=== PATIENT | male | born 1965 | race Caucasian/White ===

== ENCOUNTER → 2020-01-27 13:31 | Outpatient (CLI) | payer BC, SELFPAY ==
[2020-01-27 13:53] LABS: Blood Urea Nitrogen 24 mg/dl (9-20); Estimated Glomerular Filt Rate 70 ml/min (>60); GFR (African American) 84 ML/MIN (>60)
--- NOTE | 2020-01-27 14:07 | CT_ITS ---
Procedure: CT ANGIO ABDOMEN CLINICAL HISTORY: ESSENTIAL HYPERTENSION Hypertension workup COMPARISON: No exams were available for comparison TECHNIQUE: IV Contrast: 100ml Optiray 350 Axial images obtained with sagittal and coronal reformats. All CT scans at the facility use one or more dose reduction, viz: automated exposure control, ma/kV adjustment per patient size (including targeted exams where dose is matched to indication, i.e. head), or iterative reconstruction technique. FINDINGS: There is a single renal artery to each kidney. There is no evidence of renal artery stenosis. The abdominal aorta is unremarkable without evidence of aneurysm. The celiac and superior mesenteric artery are unremarkable and the AWAIS is patent. There is some mild calcific plaque at the lower abdominal aorta and proximal common iliacs without evidence of significant stenosis. The kidneys have an unremarkable appearance. No renal or ureteral calculi and no hydronephrosis or renal mass. Unremarkable adrenal glands. The liver, gallbladder, spleen, and pancreas have an unremarkable appearance. There is a small perigastric lymph node along the lesser curvature of the stomach at 14 mm. There is a small hiatal hernia. There is colonic diverticulosis. Small cavitary lesions are present in the inferior aspect of the right lower lobe anteriorly as well as the right lower lobe posteriorly measuring approximately 1 cm each. IMPRESSION: 1. No evidence of renal artery stenosis. 2. No renal or adrenal mass. 3. Nonspecific small cavitary lesions in the right lower lobe. Dedicated chest CT may provide further evaluation 4. There is a nodular density along the lesser curvature of the stomach. This is contiguous with the pancreas. This could represent a small lymph node or exophytic nodule from the pancreas or exophytic pancreatic tissue. Similar type density is noted along the posterior aspect of the body of the pancreas. Suggest 3 month follow-up with pancreatic protocol to confirm stability. Dictated by: Uvaldo Larose MD 01/28/2020 11:23 Electronically signed by Uvaldo Larose MD in [place] 01/28/2020 11:23
== END ==
PROVIDERS: Visit Provider Family Medicine
DX: I15.0 Renovascular hypertension (principal)
CPT/HCPCS: 36415; 74175; 82565; 84520; Q9967

== ENCOUNTER → 2021-01-05 15:24 | Outpatient (CLI) | payer BC, SELFPAY ==
--- NOTE | 2021-01-05 15:27 | CT_ITS ---
PROCEDURE: CT LUNG SCREENING CLINICAL INDICATION: HX OF NICOTINE DEPENDENCE Current smoker 30 pack year smoking history COMPARISON: No exams were available for comparison TECHNIQUE: The exam was performed on a GE Light Speed [address] scanner using 2.90 mGy CTDI. A low dose helical CT CHEST was performed on a multi-detector scanner. All CT scans at the facility use one or more dose reduction, viz: automated exposure control, ma/kV adjustment per patient size (including targeted exams where dose is matched to indication, i.e. head), or iterative reconstruction technique. The LDCT was performed in a facility that meets the criteria for the screening program. Data regarding this exam was submitted to ACR which is an approved registry. The order for this exam indicates that it came as a result of a lung cancer screening counseling shard decision-making visit that included all the elements required of such a visit including smoking cessation. The radiologist interpreting this exam meets the [facility] criteria for the LDCT lung cancer screening program. The exam is reported using the Lung-RADS classification scale and reported to the ACR registry. NOTE: This study was performed for the specific purposes of lung cancer screening and is not an alternative to diagnostic chest CT. RADIATION DOSE: CTDI vol(CT dose Index-volume) = 2.90mG DLP (Dose Length Product) = 116.20 mGcm FINDINGS: COPD with scattered areas of scarring and centrilobular emphysema. There are scattered parenchymal opacities somewhat irregular in nature some with central areas of lucency measuring 13 x 10 mm in the right lower lobe anteriorly and an additional 10 mm area in the right lower lobe posteriorly. In the right lower lobe posteriorly there is a 7 mm nodular opacity. Parenchymal opacity is noted in the extreme right lung base posteriorly and may be due to postinflammatory fibrotic changes. There is mild diffuse bronchial thickening. There is an irregular opacity in the left lower lobe at 7 mm. A noncalcified nodules present in the left lower lobe at 5 mm. An additional parenchymal opacity is present in the left lower lobe posteriorly consistent with an area of scarring. Five small irregular parenchymal opacities are present in the left upper lobe. In the right upper lobe there is a 3 mm nodule anteriorly as well as a 3 mm nodule laterally OTHER FINDINGS: There are few small mediastinal lymph nodes. Coronary artery calcifications are present. There is minimal thickening of the pericardium anteriorly. Small hiatal hernia noted. IMPRESSION: Lung-RADS Category 4A Suspicious Follow-up: There are numerous irregular parenchymal opacities in both lungs. These may be inflammatory/infectious in nature. Sequela from septic emboli would be a consideration. One cannot exclude the possibility of metastatic disease. Recommend [address] with contrast. Other findings include COPD with bronchial thickening and centrilobular emphysema Dictated by: Uvaldo Larose MD 01/14/2021 12:54 Uvaldo Larose MD in [place] 01/14/2021 12:54
== END ==
PROVIDERS: PCP Family Medicine; Visit Provider Family Medicine
DX: Z87.891 Personal history of nicotine dependence (principal); Z12.2 Encounter for screening for malignant neoplasm of respiratory organs
CPT/HCPCS: 71271

== ENCOUNTER → 2021-03-08 09:24 | Outpatient (CLI) | payer BC, SELFPAY ==
--- NOTE | 2021-03-08 09:27 | CA_ITS ---
APPROVED REPORT EXAM: Comprehensive 2D, Doppler, and color-flow Echocardiogram Yam Curer: Donna Ramirez RVT Ht: 5 ft 11 in Wt: 134lbs BSA: 1.78 BP: 168/97 mmHg Indications: SOA,COPD,HTN,DM,GERD,EX SMOKER TDS 2D Dimensions LVOT 2.13 cm (M/F) 1.5-2.5 LA Volume 30.90 mL LA Volume Index 17.35 mL/m2 (M/F) 16-34 M-Mode Dimensions RVDd 2.86 cm (0.9-2.6) LA Diam 3.09 cm (1.9-4.0) LVDd 3.25 cm (3.5-5.7) Ao Diam 2.55 cm (2.0-3.7) LVDs 2.18 cm (3.5-5.7) IVSd 0.43 cm (0.6-1.1) PWd 1.25 cm (0.6-1.1) EF (Teich) 62.80% FS 32.90% EDV (Teich) 42.50 mL TAPSE 2.17 (<1.7) ESV (Teich) 15.80 mL LV Diastology E Decel Time 193.00 (160-240 msec) E/A Ratio 0.9 MED E' 9.70 (< 7 cm/sec) E'/MED E' Ratio 10.86 (>14) LAT E' 12.40 (<10 cm/sec) E/LAT E' Ratio 8.49 (>14) Aortic Valve AO Peak GR. 7.30 mmHg Mitral Valve MV E Max Mikie. 105.00 (40-130 cm/s) MV A Velocity 119.00 (40-130 cm/s) E/A Ratio 0.88 MV Decel. Time 193.00 (160-240 ms) MV PHT 57.00 ms Pulmonary Valve PV Peak Velocity 81.00 (50-150 cm/s) Tricuspid Valve TR P. Velocity 281.00 cm/s RAP Estimate 10.00 mmHg RVSP 41.50 mmHg Left Ventricle Left atrium is mildly enlarged, left ventricle is normal size, mild concentric left ventricular hypertrophy, visually estimated ejection fraction 55% with no regional wall motion abnormality, grade 1 diastolic dysfunction seen without tissue Doppler evidence of raise left atrial pressure. Right Ventricle Right atrium and right ventricle mildly enlarged with normal contractility. Aortic Valve Aortic valve is minimally thickened and calcified without Doppler evidence of aortic stenosis or aortic insufficiency. Mitral Valve Mitral valve grossly normal, there is trace mitral regurgitation. Tricuspid Valve Tricuspid grossly normal, there is trace tricuspid regurgitation, tricuspid regurgitation jet velocity is inadequate for calculation of the right ventricular systolic pressure. Pulmonic Valve Pulmonic valve is poorly visualized. Great Vessels Aortic root is normal size. Inferior vena cava is normal size with normal inspiratory collapse. Pericardium No significant pericardial effusion noted. Conclusion 1. Mild biatrial enlargement, normal left ventricular size, mild concentric left ventricular hypertrophy, visually estimated ejection fraction 55% with no regional wall motion abnormality, grade 1 diastolic dysfunction seen without tissue Doppler evidence of raise left atrial pressure. 2. Mildly enlarged right ventricle with normal contractility. 3. Trace mitral and tricuspid regurgitation. 4. No significant pericardial effusion noted. Inferior vena cava is normal size with normal inspiratory collapse. Electronically signed by : Brandyn Dillard, 03/08/2021 18:05:08
== END ==
PROVIDERS: PCP Family Medicine; Visit Provider Internal Medicine Pulmonary Disease
DX: R06.01 Orthopnea (principal)
CPT/HCPCS: 93306

== ENCOUNTER 2021-08-05 13:31 | Emergency (ER) | payer BC, SELFPAY ==
--- NOTE | 2021-08-05 13:55 | XR_ITS ---
PROCEDURE INFORMATION: Exam: XR Chest Exam date and time: 08/05/2021 1:55 PM Age: 56 years old Clinical indication: Other: Weakness; Additional info: Weak TECHNIQUE: Imaging protocol: XR of the chest. Views: 2 views. COMPARISON: CT LUNG SCREENING 01/05/2021 3:33 PM FINDINGS: Lungs: Lungs are mildly hyperinflated. Bronchi mild bronchial wall thickening. No airspace infiltrates. Small nodular opacities are present in both lung bases, measuring up to 11 mm. Pleural spaces: No pleural effusion. No pneumothorax. Heart/Mediastinum: Unremarkable. No cardiomegaly. Bones/joints: Unremarkable. IMPRESSION: 1. Mild hyperinflation with bronchial wall thickening may be seen in the setting of COPD or infectious airways disease. 2. Nonspecific nodular opacities in both lung bases measuring up to [address] follow-up is recommended.
[2021-08-05 14:30] VITALS: BP 142/78; PULSE 117; RESP 24; TEMP 36.9; O2SAT 90; BMI 27.8
[2021-08-05 15:27] LABS: ABG Base Excess 17.2 mmol/L (-2.4-2.3); ABG HCO3 41.9 mmhg (22.0-26.0); ABG Oxygen Saturation 94 % (90-100); ABG PH 7.41 mmol/L (7.35-7.45); ABG PO2 70.5 mmhg (80-100)
[2021-08-05 15:29] LABS: Basophils # 0.1 K/mm3 (0-0.2); Basophils % 0.7 % (0.1-2.0); Eosinophils # 0.2 K/mm3 (0.0-0.4); Eosinophils % 1.6 % (0.1-12.0); Hematocrit 44.2 % (42.0-52.0); Hemoglobin 14.6 g/dL (14.1-18.0); Lymphocytes # 1.6 K/mm3 (0.7-4.5); Lymphocytes % 10.5 % (10-50); Mean Corpuscular Hemoglobin 29.8 pg (27.0-31.2); Mean Corpuscular Volume 90.4 fl (80-94); Mean Platelet Volume 8.9 fl (7.4-10.4); Monocytes # 0.5 K/mm3 (0.1-1.0); Monocytes % 3.4 % (1.7-9.3); Neutrophils # 12.4 K/mm3 (1.8-7.8); Neutrophils % 83.8 % (37.0-80.0); Platelet Count 267 K/mm3 (142-424); Red Cell Distribution Width 13.4 % (11.5-17.5); White Blood Count 14.8 K/mm3 (4.8-10.8)
[2021-08-05 15:31] LABS: Alanine Aminotransferase 36 U/L (12-78); Albumin Level 3.5 g/dl (3.5-5.0); Alkaline Phosphatase 126 U/L (38-126); Aspartate Amino Transferase 30 U/L (17-59); Bilirubin,Total 0.4 mg/dl (0.2-1.3); Blood Urea Nitrogen 19 mg/dl (9-20); Calcium 9.2 mg/dl (8.4-10.2); Chloride 85 mmol/L (98-107); Creatinine Clearance Estimated 132 mL/min (50-200); Estimated Glomerular Filt Rate 100 ml/min (>60); GFR (African American) 121 ML/MIN (>60); Globulin 3.5 g/dL (1.3-3.2); Glucose 162 mg/dl (74-100); Potassium 3.5 mmoL/L (3.5-5.1); Sodium 136 mmol/L (136-145)
[2021-08-05 15:36] LABS: Allen's Test Acceptable; Oxygen 2.5LPM NC %; Source Left Radial
[2021-08-05 15:38] LABS: ABG PCO2 68.1 mmhg (35.0-45.0)
--- NOTE | 2021-08-05 15:38 | HMH.EDUTC ---
[facility] [place] Disposition Clinical Impression: COPD exacerbation, Hypercapnemia Disposition: Still a Patient Condition on Discharge: Fair Referrals: Antolin Boo MD [Staff Physician] - Time of Disposition: 15:47 Medical Decision Making - Medical Records Medical records reviewed: No: I reviewed the patient's medical records. - [place] Inquiry Pt receiving controlled substance: No Vital Signs: 08/05/21 14:30 Temperature 98.5 F Temperature Source Oral Pulse Rate [Right Brachial] 117 H Respiratory Rate 24 Blood Pressure [Right Arm] 142/78 H Blood Pressure Mean [Right Arm] 99 Blood Pressure Source [Right Arm] Automatic Cuff Blood Pressure Position [Right Arm] Sitting 02 Sat by Pulse Oximetry 90 L Oxygen Delivery Method Nasal Cannula Oxygen Flow Rate (LPM) 2.5 - Lab Data Lab Results 08/05/21 14:44: Specimen Source Left radial, O2 % 2.5lpm nc, Uvaldo Test Acceptable, Vent Rate , Tidal Volume , PEEP 08/05/21 15:00: WBC 14.8 H, RBC 4.90, Hgb 14.6, Hct 44.2, MCV 90.4, MCH 29.8, MCHC 33.0, RDW 13.4, Plt Count 267, MPV 8.9, Neut % (Auto) 83.8 H, Lymph % (Auto) 10.5, [place] % (Auto) 3.4, Eos % (Auto) 1.6, Baso % (Auto) 0.7, Neut # (Auto) 12.4 H, Lymph # (Auto) 1.6, [place] # (Auto) 0.5, Eos # (Auto) 0.2, Baso # (Auto) 0.1 Result diagrams: 08/05/21 15:00 Orders (Tests/Meds): ORDERS Category Date Time Status Chest XR 2 view (NOT portable) [XR chest 2V] Stat Exams 08/05/21 13:55 Taken CMP [Comprehensive Metabolic Panel] Stat Lab 08/05/21 15:00 Received Arterial Blood Gas Stat RT 08/05/21 14:44 Results Medical Decision Narrative: He was sent to the er due to his disorientation and his abg results [facility] [place] HPI - General Stated complaint: weakness, disorientated, cough, congestion Time Seen by Provider: 08/05/21 15:00 Mode of Arrival: Ambulatory Source of Information: Patient, Spouse Limitations: No Limitations Description of Symptoms (Recalled from Triage Doc. by RN): PATIENT C/O WEAKNESS, SOA, AND DISORIENTATION SINCE LAST WEEK HEENT Symptoms (Recalled from RN notes): No Resp Symptoms (Recalled from RN notes): Yes Skin Symptoms (Recalled from RN notes): No MS Symptoms (Recalled from RN notes): No Functional Status (Recalled from RN notes): WNL - History of Present Illness Provider Complaint: He is here with chief complaints of shortness of breath and disorientation. His states that he has been like this for the past 5 days, but he is getting worse. He has a history of copd. He is on o2 via nc around the clock at 2.5 lpm chronically. His states that he had a negative covid-19 test yesterday. He has not been vaccinated against covid-19. - Related Data Home Medications Medication Instructions Recorded Confirmed amlodipine 10 mg tablet 10 mg PO DAILY 01/20/21 03/16/21 esomeprazole magnesium 40 mg 40 mg PO DAILY 01/20/21 03/16/21 capsule,delayed release hydrochlorothiazide 25 mg tablet 25 mg PO DAILY 01/20/21 03/16/21 lisinopril 40 mg tablet 40 mg PO DAILY 01/20/21 03/16/21 metformin 1,000 mg tablet 1,000 mg PO DAILY 01/20/21 03/16/21 nebivolol 20 mg tablet 20 mg PO DAILY 01/20/21 03/16/21 pravastatin 10 mg tablet 10 mg PO DAILY 01/20/21 03/16/21 tiotropium 2.5 mcg-olodaterol 2.5 2 puff INHALATION DAILY 01/20/21 03/16/21 mcg/actuation mist for inhalation Allergies Allergy/AdvReac Type Severity Reaction Status Date / Time Penicillins Allergy Intermediate Swelling Verified 03/16/21 09:58 of Lip/Tongue/Throat - Worker's Comp Is this a Worker's Comp case?: No [facility] History - Hepatitis A Screen Drug use history?: No High risk sexual behaviors?: No History of sexually transmitted infection?: No Currently employed?: No Childcare worker?: No Do you have indoor plumbing?: Yes Do you have electricity?: Yes Attestation statement:: This patient has been screened for Hepatitis A risk factors. I have reviewed the patient's past medical history: Yes Medical History
--- NOTE | 2021-08-05 15:40 | PC.NURSE ---
PATIENT SENT TO ER PER Bal REED APRN FOR FURTHER EVALUATION. REPORT AND ABG RESULTS GIVEN TO Michelle KING RN
[2021-08-05 15:43] LABS: Anion Gap 7.5 mEq/L (5-15); Carbon Dioxide 47 mmol/L (22.0-30.0)
[2021-08-05 15:46] VITALS: BP 145/78; PULSE 116; RESP 18; TEMP 37.1; O2SAT 89; BMI 27.8
[2021-08-05 16:15] VITALS: PULSE 111; PULSE 112; O2SAT 91
[2021-08-05 16:31] LABS: Microscopic, Urine URINE MICROSCOPIC (MICROSCOPIC)
[2021-08-05 16:42] LABS: Appearance,Urine CLEAR (Clear); Bilirubin,Urine Negative (Negative); Blood, Urine Negative (Negative); Color,Urine YELLOW (Yellow); Glucose,Urine (UA) Negative (Negative); Ketones,Urine Negative (Negative); Leukocyte Esterase,Urine Negative (Negative); Nitrate,Urine Negative (Negative); PH,Urine 7.5 (5.0-8.5); Protein,Urine TRACE (Negative)
[2021-08-05 16:51] LABS: Benzodiazepines Screen,Urine Negative ng/ml (<200)
[2021-08-05 16:52] LABS: Amphetamine/Metha Screen,Urine Negative ng/ml (<1000); Barbiturates Screen,Urine Negative ng/ml (<200)
[2021-08-05 16:53] LABS: Methadone Screen,Urine Negative ng/ml (<300)
[2021-08-05 16:54] LABS: Cannabinoid Screen,Urine Negative ng/ml (<50); Cocaine Screen,Urine Negative ng/ml (<300)
[2021-08-05 16:55] LABS: Opiate Screen,Urine Negative ng/ml (<300)
[2021-08-05 16:56] LABS: Phencyclidine Screen,Urine Negative ng/ml (<25)
[2021-08-05 17:13] LABS: Bacteria,Urine Trace /lpf; Squamous Epithelial Cell,Urine Occasional #/hpf (0-5)
--- NOTE | 2021-08-05 19:07 | HMH.EDGENADL ---
ED Disposition Clinical Impression: COPD exacerbation, Hypercapnemia Pneumonia Qualifiers: Pneumonia type: due to unspecified organism Laterality: unspecified laterality Lung location: unspecified part of lung Qualified Code(s): J18.9 - Pneumonia, unspecified organism Disposition: Home, Self-Care Condition on Discharge: Fair Additional Instructions: You have been prescribed 2 antibiotics. Please take as prescribed. Continue to monitor your condition very closely at home. If any of the concerning symptoms we discussed arise, please return promptly to the nearest emergency department for reassessment. If your condition does not improve within 48 hours on the regimen that you have been prescribed, please also return for reassessment. Please make an appointment with your primary care Dr. Boo on Sunday for reassessment. Please note that your chest X ray showed abnormal findings and you will require a follow up CT imaging for these findings. Prescriptions: Doxycycline Hyclate [Doxycycline 50mg Tablet] 100 mg PO BID 10 Days #40 tab Transmission Status: Received by [email or web address] # Cefdinir [Omnicef 300mg Capsule] 300 mg PO BID #20 cap Transmission Status: Received by [email or web address] # Albuterol Sulfate [Proventil-HFA 90mcg/puff Inh] 4 puffs IH QIDP PRN #1 each PRN Reason: Shortness Of Breath Transmission Status: Received by [email or web address] # Referrals: Antolin Boo MD [Staff Physician] - - Critical Care Critical Care Time: No Attestation: On 08/05/21, the high probability of a clinically significant, sudden or life threatening deterioration of the following system(s) required my full and direct attention, intervention and personal management. The time I documented below is in addition to time spent performing reported procedures but includes the following listed in this critical care notation. Medical Decision Making - Medical Records Medical records reviewed: Yes: I reviewed the patient's medical records. - [place] Inquiry Pt receiving controlled substance: No Vital Signs: 08/05/21 14:30 08/05/21 15:46 08/05/21 16:15 Temperature 98.5 F 98.7 F Temperature Source Oral Oral Pulse Rate 112 H Pulse Rate [Right Brachial] 117 H 116 H Respiratory Rate 24 18 Blood Pressure [Right Arm] 142/78 H 145/78 H Blood Pressure Mean [Right Arm] 99 100 Blood Pressure Source [Right Arm] Automatic Cuff Blood Pressure Position [Right Arm] Sitting 02 Sat by Pulse Oximetry 90 L 89 L 91 L Oxygen Delivery Method Nasal Cannula Nasal Cannula Nasal Cannula Oxygen Flow Rate (LPM) 2.5 2.5 2.5 - Lab Data Lab results reviewed: Yes: I reviewed the patient's lab results. Lab Results 08/05/21 14:44: Specimen Source Left radial, O2 % 2.5lpm nc, ABG pH 7.41, ABG pCO2 68.1 H, ABG pO2 70.5 L, ABG HCO3 41.9 H, ABG Total CO2 44.0 H, ABG O2 Saturation 94, ABG Base Excess 17.2 H, Uvaldo Test Acceptable, Vent Rate , Tidal Volume , PEEP 08/05/21 15:00: WBC 14.8 H, RBC 4.90, Hgb 14.6, Hct 44.2, MCV 90.4, MCH 29.8, MCHC 33.0, RDW 13.4, Plt Count 267, MPV 8.9, Neut % (Auto) 83.8 H, Lymph % (Auto) 10.5, [place] % (Auto) 3.4, Eos % (Auto) 1.6, Baso % (Auto) 0.7, Neut # (Auto) 12.4 H, Lymph # (Auto) 1.6, [place] # (Auto) 0.5, Eos # (Auto) 0.2, Baso # (Auto) 0.1 08/05/21 15:00: Sodium 136, Potassium 3.5, Chloride 85 L, Carbon Dioxide 47 H*, Anion Gap 7.5, BUN 19, Creatinine 0.80, Estimated Creat Clear 132, Estimated GFR 100, Est GFR ( Amer) 121, Glucose 162 H, Calcium 9.2, Total Bilirubin 0.4, AST 30, ALT 36, Alkaline Phosphatase 126, Total Protein 7.0, Albumin 3.5, Globulin 3.5 H, Albumin/Globulin Ratio 1.0 L 08/05/21 16:28: Urine Color Yellow, Urine Appearance Clear, Urine pH 7.5, Ur Specific [place] 1.020, Urine Protein Trace, Urine Glucose (UA) Negative, Urine Ketones Negative, Urine Blood Negative, Urine Nitrate Negative, Urine Bilirubin Negative, Urine Urobilinogen 2.0, Ur Leukocyte Esterase Negative, Urine R
[2021-08-05 20:34] VITALS: BP 156/84; PULSE 102; RESP 16; TEMP 37.1; O2SAT 93
== END 2021-08-05 20:39 | disposition home or self-care (01) ==
LOC: UTC 14:02 → ER 15:41
PROVIDERS: Nurse Practitioner Family; Emergency Provider Emergency Medicine
DX: J18.9 Pneumonia, unspecified organism (principal); J44.1 Chronic obstructive pulmonary disease with (acute) exacerbation; E11.65 Type 2 diabetes mellitus with hyperglycemia; I10 Essential (primary) hypertension; K21.9 Gastro-esophageal reflux disease without esophagitis
CPT/HCPCS: 71046; 80053; 80305; 81001; 82803; 85025; 99283

== ENCOUNTER → 2021-08-11 08:31 | Outpatient (CLI) | payer BC, SELFPAY ==
[2021-08-11 09:48] LABS: Blood Urea Nitrogen 17 mg/dl (9-20); Estimated Glomerular Filt Rate 87 ml/min (>60); GFR (African American) 106 ML/MIN (>60)
== END ==
PROVIDERS: Visit Provider Family Medicine
DX: J18.9 Pneumonia, unspecified organism (principal); R91.8 Other nonspecific abnormal finding of lung field; R91.1 Solitary pulmonary nodule; Z91.89 Other specified personal risk factors, not elsewhere classified
CPT/HCPCS: 36415; 82565; 84520

== ENCOUNTER → 2021-08-17 12:47 | Outpatient (CLI) | payer BC, SELFPAY ==
--- NOTE | 2021-08-17 12:52 | CT_ITS ---
PROCEDURE INFORMATION: Exam: CT Chest With Contrast; Diagnostic Exam date and time: 08/17/2021 12:52 PM Age: 56 years old Clinical indication: Other: Pulmonary nodule; Additional info: Abn CT , pulmonary nodule, TECHNIQUE: Imaging protocol: Diagnostic computed tomography of the chest with contrast. Radiation optimization: All CT scans at this facility use at least one of these dose optimization techniques: automated exposure control; mA and/or kV adjustment per patient size (includes targeted exams where dose is matched to clinical indication); or iterative reconstruction. Contrast material: ISOVUE; Contrast volume: 70 ml; Contrast route: IV; COMPARISON: CR XR CHEST 2V 08/05/2021 2:10 PM FINDINGS: Thyroid: There is a 1.2 cm left thyroid nodule. No follow-up is recommended. Lungs: Scattered calcified granulomas are seen in the lungs bilaterally. Moderate centrilobular emphysema. There is some tree-in-bud nodularity in the right lower lobe as well as the lingula and left lower lobe. No focal airspace consolidation. The largest area of spiculation seen in the right lower lobe has resolved and was likely infectious or inflammatory. Pleural spaces: Unremarkable. No pneumothorax. No pleural effusion. Heart: Coronary artery calcification. Aorta: Unremarkable. No aortic aneurysm. Lymph nodes: Calcified right hilar lymph nodes. Liver: Calcified hepatic granulomas. Spleen: Calcified splenic granulomas. Bones/joints: Unremarkable. No acute fracture. Soft tissues: Bilateral gynecomastia. IMPRESSION: 1. Tree-in-bud nodularity in the lower lobes and lingula, mildly increased from 01/05/2021, may reflect aspiration or atypical infection. 2. The largest spiculated nodule previously seen in the right lower lobe has resolved and was likely infectious or inflammatory. COMMENTS: Consistent with the [employer]'s Incidental Findings Committee white paper (J Am Key Radiol 2015): In patients aged 35 years and older with an incidental thyroid nodule equal to or greater than 1.[address], MRI or extrathyroidal US, further evaluation with dedicated thyroid US is recommended for patients with normal life expectancy and without comorbidities. For smaller nodules without suspicious features, no further evaluation or follow up is recommended.
== END ==
PROVIDERS: PCP Family Medicine; Visit Provider Family Medicine
DX: R91.8 Other nonspecific abnormal finding of lung field (principal); R91.1 Solitary pulmonary nodule; Z91.89 Other specified personal risk factors, not elsewhere classified
CPT/HCPCS: 71260; Q9967

== ENCOUNTER 2025-01-30 07:46 | Outpatient (CLI) | payer BC, SELFPAY ==
--- OUTSIDE RECORDS SUMMARY | 2025-01-30 07:49 | XMS_ITS | Data Portability ---
Author Organization [facility] DANIELLA Brown TALALA CLOSED Address [address] [facility] [address] [place] [address] Assessment No assessment recorded. Plan of Treatment Reminders Order Date Submit Date Provider Last Modified By Organization Details Last Modified Time Details Appointments None record ed. Lab None record ed. Referral None record ed. Procedures None record ed. Surgeries None record ed. Imaging None record ed. Medication Orders None record ed. Patient TargetsNo targets recorded. Patient InstructionsNo instructions recorded. Reason for Referral None Reported. Results Created Date Observation Date Name Description Value Unit Range Abnormal Flag Note LastModifiedBy Organization Detail LastModifiedTime 03/01/20 20 03/03/2020 SARS CoV 2 RNA (COVI D-19) , QL, manager of internal audit-P CR, respi rator y speci men sars cov2 result NEGATI VE normal TEST REFER RED TO Solar is Diagn ostic s LABOR ATORY . SEE SCANN ED REFER ENCE LAB REPOR T. PRINT ED REPOR T RECEI BUD IN THE LABOR ATORY : Not Available [facility] [address] [facility], [place], [address], 03/03/2020 11:14:40 03/03/20 20 03/03/2020 surgi xenia patho logy study surgical SEE BELOW Depar tment of Patho logy Surgi xenia Patho logy Repor t NAME: KEN SOTO Birdie PATH. :ST-2 0 Copy to: Diagn osis: Recta l polyp : Hyper plast ic polyp . No evide nce of dyspl alanis or malig corey . SOURC E OF SPECI MEN: RECTA L POLYP CLINI XENIA INFOR MATIO N: HX OF POLYP S Gross Descr iptio n: Recei bud in forma caitlin label ed with the patie nt's name and desig nated as rect al polyp is a singl e fragm ent of pale cantor tissu e measu ring 0.3 cm. Entir marc submi tted in one casse tte. JAB 03/03 12:59 PM Micro scopi c Descr iptio n: A micro scopi c exami natio n has been perfo rmed. JOSÉ MIGUEL Roger MD Vera d Out Date: 03/04 10:41 Page 1 of 1 Not Available [facility] [address] [place] [address], [phone], 03/04/2020 10:42:47 Result Notes None recorded. Medical Equipment None Reported. Allergies Allergen ID Allergen Name Allergen Category Reaction Reaction Severity Criticality Documentation Date Start Date Code Code System Note Provider Name and Address Organization Details Recorded Time 410420 Product containin g penicilli n (product) medicatio n respirato ry distress severe Not available 07/14/20162010 54665 8001 SNOMED React ion: BREAT HENRI DIFFI CULTY ;Zara rity: Sever e; Comme nt: Creat ed By: Jadon Nicolas Creat ed Date: 2010 2:55: 49 PM; Not Available [facility] 6 05:02:46 Medications Name Sig Start Date Stop Date Status Note LastModified by Organization Details LastModified Time Golytely 236 gram-22.74 gram-6.74 gram-5.86 gram oral solution as directed 020 active Not Available Not Available Not Avai lable Dexilant 60 mg capsule, delayed release Daily active Freque ncy: daily; Medica tion Descri ption: dexlan sopraz ole; Dosage :1; Route: oral; refill s:0 Not Available Not Available Not Available Suprep Bowel Prep Kit 17.5 gram-3.13 gram-1.6 gram oral solution TAKE DIRECTED 020 active Not Available Not Available Not Avai lable Vitals None Recorded Social History None recorded. Functional Status None recorded. Mental Status None recorded. Family History Nothing Reported. Medical History No medical history recorded. Past Encounters Encounter ID Performer Location Encounter Start Date Encounter Closed Date Diagnosis/Indication Diagnosis SNOMED-CT Code Diagnosis ICD10 Code Diagnosis Note [id number] KWAKU CARDOZA MD SURGERY SCHEDULE [address] [place] [address] 03/03/2020 06:57:25 03/03/2020 07:01:07 Health Concerns Section Related Observation LastModified by Organization Detai ls LastModified Time None Recorded Concern Status LastModified by Organization Details LastModified Time None Recorded Advance Directives Directive None Recorded Payers Insurance Date Sequence Insurance Name Policy Number Policy Stein Covered Member ID Stein Member ID Guarantor Name 07/14/2020 1 [place] [id number] Jeremy Soto [id number] Jeremy Soto
[2025-01-30 08:28] LABS: Basophils % 0.2 % (0.1-2.0); Eosinophils # 0.2 Kmm3 (0.0-0.4); Eosinophils % 2.6 % (0.1-12.0); Hematocrit 41.4 % (42.0-52.0); Hemoglobin 12.3 g/dL (14.1-18.0); Immature Granulocytes # 0.02 10^3uL; Immature Granulocytes % 0.2 %; Lymphocytes # 1.5 K/mm3 (0.7-4.5); Lymphocytes % 15.7 % (10-50); Mean Corpuscular HGB Conc 29.7 g/dL (31.8-35.4); Mean Corpuscular Hemoglobin 27.9 pg (27.0-31.2); Mean Corpuscular Volume 93.9 fl (80-94); Mean Platelet Volume 10.7 fl (7.4-10.4); Monocytes # 0.6 K/mm3 (0.1-1.0); Monocytes % 6.8 % (1.7-9.3); Neutrophils # 6.9 K/mm3 (1.8-7.8); Neutrophils % 74.5 % (37.0-80.0); Nucleated Red Blood Cells # 0 10^3/uL; Nucleated Red Blood Cells % 0 %; Platelet Count 193 K/mm3 (142-424); Red Blood Count 4.41 M/mm3 (4.60-6.20); Red Cell Distribution Width 13.1 % (11.5-17.5); Red Cell Distribution Width-SD 45.2 fL; Reticulocyte % (Auto) 1.5 % (0.9-3.2); White Blood Count 9.3 K/mm3 (4.8-10.8)
[2025-01-30 08:44] LABS: Lactate Dehydrogenase 148 U/L (313-618)
[2025-01-30 09:03] LABS: Free T4 (Free Thyroxine) 1.27 ng/dl (0.78-2.19)
[2025-01-30 09:07] LABS: Iron 85 ug/dL (49-181)
[2025-01-30 09:16] LABS: Thyroid Stimulating Hormone 0.75 uIU/mL (0.465-4.68); Total Iron Binding Capacity 284 ug/dL (261-462)
[2025-01-30 09:19] LABS: Ferritin 90.4 ng/ml (17.9-464)
[2025-01-30 09:35] LABS: Vitamin B12 317 pg/mL (239-931)
[2025-02-01 08:03] LABS: Peripheral Smear Review Scanned Result
== END 2025-01-30 23:59 | disposition home or self-care (01) ==
LOC: LAB 07:47
PROVIDERS: PCP Family Medicine; Visit Provider Family Medicine
DX: D64.9 Anemia, unspecified (principal)
CPT/HCPCS: 36415; 82607; 82728; 82746; 83540; 83550; 83615; 84439; 84443; 85025; 85044

== ENCOUNTER 2025-03-06 13:01 | Outpatient (CLI) | payer BC, SELFPAY ==
--- OUTSIDE RECORDS SUMMARY | 2025-01-19 09:15 | XMS_ITS | Encounter Summary ---
Author Organization [facility] Address [address] [place] [address] Care Team Providers Care Kindergarten Paraprofessional Name Role Phone Antolin Boo MD Primary Care Provider + Reason for Referral * Diagnostic Medical (Routine) - Authorized Specialty Diagnoses / Procedures Referred By Contac t Referred To Contact Gastroenterology Diagnoses Colon cancer screening Procedures SD OFFICE/OUTPATIENT NEW MODERATE MDM 45 MINUTES Antolin Boo MD [address] [place] [address] Phone: tel: fax: Rei Gomez MD [address] [place] [address] Phone: tel: fax: Referral ID Status Reason Start Date Expiration Date Visits Requested Visits Authorized [id number] Authorized Specialty Services Required 01/19/2025 04/20/2026 1 1 * Consultation (Routine) - Authorized Specialty Diagnoses / Procedures Referred By Contac t Referred To Contact Pulmonary Disease Diagnoses Panlobular emphysema Chronic respiratory failure with hypoxia Procedures SD OFFICE/OUTPATIENT NEW MODERATE MDM 45 MINUTES Antolin Boo MD [facility] [place] [address] Phone: tel: fax: Carmella Loza MD [address] [place] [address] Phone: tel: fax: Referral ID Status Reason Start Date Expiration Date Visits Requested Visits Authorized [id number] Authorized Specialty Services Required 01/19/2025 04/20/2026 1 1 Scheduling Instructions Refer to [facility] Pulmonology. Dr. Carmella Loza * MRI/CAT/PET Scan (Routine) - Authorized Specialty Diagnoses / Procedures Referred By Contac t Referred To Contact Diagnoses Personal history of nicotine dependence Encounter for screening for lung cancer Procedures CT Chest Low Dose Cancer Screening WO Antolin Boo MD [address] [place] [address] Phone: tel: fax: [facility] [address] [place] [address] Phone: tel: fax: Referral ID Status Reason Start Date Expiration Date V isits Requested Visits Authorized [id number] Authorized 01/19/2025 04/20/2026 1 1 Reason for Visit * Reason Comments Annual Exam Pt is fasting for la bs Encounter Details Date Type Department Care Team (Late st Contact Info) Description 01/19/2025 9:15 AM EDT Office Visit [facility] [address] [place] [address] Antolin Boo MD [address] [place] [address] Annual physical exam (Primary Dx); Primary hypertension; Type 2 diabetes mellitus with diabetic microalbuminuria, without long-term current use of insulin; Panlobular emphysema; Chronic respiratory failure with hypoxia; Primary hypertension; Type 2 diabetes mellitus with diabetic microalbuminuria, without long-term current use of insulin; Gastroesophageal reflux disease without esophagitis; Panlobular emphysema; Chronic respiratory failure with hypoxia; Personal history of nicotine dependence; Encounter for screening for lung cancer; Colon cancer screening Social History Tobacco Use Types Packs/Day Years Used Date Smoking Tobacco: Former Cigarettes 2 38 0 08/20/1983 - 08/20/2021 Smokeless Tobacco: Never Comments:I am unsure of star t date, it wasnt like i thought i need to document this for future reference. Alcohol Use Standard Drinks/Week Comments Never 0 (1 standard drink = 0.6 oz pur e alcohol) PHQ-2 Answer Date Recorded Retired PHQ-9: Brief Depression Severity Measure Score 0 01/08/2023 PHQ-2 Answer Date Recorded Patient Health Questionnaire-2 Score 0 01/19/2025 Sex and Gender Information Value Date Recorded Sex Assigned at Male 01/18/2025 1:13 PM EDT Legal Sex Male 1:34 PM EDT Gender Identity Not on file Sexual Orientation Not on file documented as of this encounter Last Filed Vital Signs Vital Sign Reading Time Taken Comments Blood Pressure 165/65 01/19/2025 9:23 AM EDT Pulse 100 01/19/2025 9:23 AM EDT Temperature 36.4 C (97.5 F) 01/19/2025 9:23 AM EDT Respiratory Rate 24 01/19/2025 9:23 AM EDT Oxygen Saturation 93% 01/19/2025 9:23 AM EDT on 2L/min Inhaled Oxygen Concentration - - Weight 92.6 kg (204 lb 3.2 oz) 01/19/2025 9:23 A M EDT Height 180.3 cm (5' 11 ) 01/19/2025 9:23 AM EDT Body Mass Index 28.48 01/19/2025 9:23 AM EDT documented in this encounter Functional Status documented as of this encounter Progress Notes * Antolin Boo MD - 01/19/2025 9:15 AM EDT Chief Complaint Patient presents with Annual Exam Pt is fasting for labs Subjective Jeremy Beckham is a 59 y.o. who presents for annual physical and chronic care visit for hypertension, diabetes, COPD. Overall he feels like his health is stable. Sleep. 6 to 8 hours per night. Feels mostly rested upon awakening. Diet. Diet consists of lean proteins, whole grains, fruits and vegetables. Physical activity. Minimal due to the severity of his COPD with chronic respiratory failure. Patient also inquires about evaluation for lung transplantation. He did not complete lung cancer screening ordered earlier in the year The following portions of the patient's history were reviewed and updated as appropriate: allergies, current medications, past family history, past medical history, past social history, past surgicalhistory, and problem list. Review of Systems Objective Vital Signs: BP 165/65 Pulse 100 Temp 97.5 ??F (36.4 ??C) Resp 24 Ht 180.3 cm (71 ) Wt 92.6 kg (204 lb3.2 oz) SpO2 93% Comment: on 2L/min BMI 28.48 kg/m?? Physical Exam Constitutional: General: He is not in acute distress. Appearance: Normal appearance. He is not ill-appearing. HENT: Head: Normocephalic and atraumatic. Right Ear: Tympanic membrane and ear canal normal. Left Ear: Tympanic membrane and ear canal normal. Nose: Nose normal. Mouth/Throat: Mouth: Mucous membranes are moist. Pharynx: Oropharynx is clear. No posterior oropharyngeal erythema. Eyes: Extraocular Movements: Extraocular movements intact. Conjunctiva/sclera: Conjunctivae normal. Pupils: Pupils are equal, round, and reactive to light. Cardiovascular: Rate and Rhythm: Normal rate and regular rhythm. Pulses: Normal pulses. Dorsalis pedis pulses are 2+ on the right side and 2+ on the left side. Posterior tibial pulses are 2+ on the right side and 2+ on the left side. Heart sounds: Normal heart sounds. Pulmonary: Effort: Pulmonary effort is normal. No respiratory distress. Comments: Breath sounds are distant throughout Abdominal: General: Abdomen is flat. Bowel sounds are normal. Palpations: Abdomen is soft. Tenderness: There is no abdominal tenderness. Musculoskeletal: General: Normal range of motion. Cervical back: Normal range of motion and neck supple. Feet: Right foot: Protective Sensation: 9 sites tested. 9 sites sensed. Skin integrity: Skin integrity normal. Toenail Condition: Right toenails are normal. Left foot: Protective Sensation: 9 sites tested. 9 sites sensed. Skin integrity: Skin integrity normal. Toenail Condition: Left toenails are normal. Comments: Diabetic Foot Exam Performed and Monofilament Test Performed Lymphadenopathy: Cervical: No cervical adenopathy. Skin: General: Skin is warm and dry. Capillary Refill: Capillary refill takes less than 2 seconds. Neurological: General: No focal deficit present. Mental Status: He is alert and oriented to person, place, and time. Mental status is at baseline. Cranial Nerves: No cranial nerve deficit. Sensory: No sensory deficit. Motor: No weakness. Psychiatric: Mood and Affect: Mood normal. Behavior: Behavior normal. Thought Content: Thought content normal. Judgment: Judgment normal. Result Review The following data was reviewed by: Antolin Boo MD on 01/19/2025: Data reviewed : UACR 30 to 300 mg/g Assessment and Plan Diagnoses and all orders for this visit: 1. Annual physical exam (Primary) 2. Primary hypertension - CBC & Differential - Comprehensive Metabolic Panel - amLODIPine (NORVASC) 10 MG tablet; Take 1 tablet by mouth Daily. Dispense: 90 tablet; Refill: 2 - chlorthalidone (HYGROTON) 25 MG tablet; Take 1 tablet by mouth Daily. Dispense: 90 tablet; Refill: 2 - lisinopril (PRINIVIL,ZESTRIL) 40 MG tablet; Take 1 tablet by mouth Daily. Dispense: 90 tablet; Refill: 2 - nebivolol (BYSTOLIC) 10 MG tablet; Take 1 tablet by mouth Daily. Dispense: 90 tablet; Refill: 2 3. Type 2 diabetes mellitus with diabetic microalbuminuria, without long-term current use of insulin - Comprehensive Metabolic Panel - Hemoglobin A1c - Lipid Panel - POC Albumin/Creatinine Ratio Urine - empagliflozin (Jardiance) 10 MG tablet tablet; Take 1 tablet by mouth Daily. Dispense: 30 tablet;Refill: 5 - metFORMIN (GLUCOPHAGE) 1000 MG tablet; Take 1 tablet by mouth Daily With Breakfast. Dispense: 90 tablet; Refill: 2 - pravastatin (PRAVACHOL) 20 MG tablet; Take 1 tablet by mouth Daily. Dispense: 90 tablet; Refill: 3 4. Panlobular emphysema - Stiolto Respimat 2.5-2.5 MCG/ACT aerosol solution inhaler; Inhale 2 puffs Daily. Dispense: 3 each; Refill: 2 - Ventolin HFA 108 (90 Base) MCG/ACT inhaler; Inhale 2 puffs Every 4 (Four) Hours As Needed for Wheezing. Dispense: 18 g; Refill: 5 - Ambulatory Referral to Pulmonology 5. Chronic respiratory failure with hypoxia - CBC & Differential - Stiolto Respimat 2.5-2.5 MCG/ACT aerosol solution inhaler; Inhale 2 puffs Daily. Dispense: 3 each; Refill: 2 - Ambulatory Referral to Pulmonology 6. Primary hypertension Comments: Stable. Continue current medication regimen. Reassess in 6 months. Orders: - CBC & Differential - Comprehensive Metabolic Panel - amLODIPine (NORVASC) 10 MG tablet; Take 1 tablet by mouth Daily. Dispense: 90 tablet; Refill: 2 - chlorthalidone (HYGROTON) 25 MG tablet; Take 1 tablet by mouth Daily. Dispense: 90 tablet; Refill: 2 - lisinopril (PRINIVIL,ZESTRIL) 40 MG tablet; Take 1 tablet by mouth Daily. Dispense: 90 tablet; Refill: 2 - nebivolol (BYSTOLIC) 10 MG tablet; Take 1 tablet by mouth Daily. Dispense: 90 tablet; Refill: 2 7. Type 2 diabetes mellitus with diabetic microalbuminuria, without long-term current use of insulin Comments: DM control has worsened. Return to metformin in the morning with food plus Jardiance. Monitor glucose more closely Orders: - Comprehensive Metabolic Panel - Hemoglobin A1c - Lipid Panel - POC Albumin/Creatinine Ratio Urine - empagliflozin (Jardiance) 10 MG tablet tablet; Take 1 tablet by mouth Daily. Dispense: 30 tablet;Refill: 5 - metFORMIN (GLUCOPHAGE) 1000 MG tablet; Take 1 tablet by mouth Daily With Breakfast. Dispense: 90 tablet; Refill: 2 - pravastatin (PRAVACHOL) 20 MG tablet; Take 1 tablet by mouth Daily. Dispense: 90 tablet; Refill: 3 8. Gastroesophageal reflux disease without esophagitis - esomeprazole (nexIUM) 40 MG capsule; Take 1 capsule by mouth Daily. Dispense: 90 capsule; Refill:2 9. Panlobular emphysema Comments: Stable. Continue Stiolto and as needed Nishi. Orders: - Stiolto Respimat 2.5-2.5 MCG/ACT aerosol solution inhaler; Inhale 2 puffs Daily. Dispense: 3 each; Refill: 2 - Ventolin HFA 108 (90 Base) MCG/ACT inhaler; Inhale 2 puffs Every 4 (Four) Hours As Needed for Wheezing. Dispense: 18 g; Refill: 5 - Ambulatory Referral to Pulmonology 10. Chronic respiratory failure with hypoxia Comments: Continue supplemental oxygen Orders: - CBC & Differential - Stiolto Respimat 2.5-2.5 MCG/ACT aerosol solution inhaler; Inhale 2 puffs Daily. Dispense: 3 each; Refill: 2 - Ambulatory Referral to Pulmonology 11. Personal history of nicotine dependence - CT Chest Low Dose Cancer Screening WO; Future 12. Encounter for screening for lung cancer - CT Chest Low Dose Cancer Screening WO; Future 13. Colon cancer screening - Ambulatory Referral For Screening Colonoscopy Plan 1. Physical health is stable but somewhat severely limited by chronic conditions (COPD) 2. Refer to pulmonology for further investigation over possibility of lung transplant candidacy 3. Reorder patient's CT scan for lung cancer screening 4. Surveillance labs for chronic conditions ordered. Refills provided for chronic prescriptions Follow Up Return in about 6 months (around 07/21/2025) for Next scheduled follow up. Patient was given instructions and counseling regarding his condition or for health maintenance advice. Please see specific information pulled into the AVS if appropriate. documented in this encounter Plan of Treatment Upcoming Encounters Date Type Department Care Team (Late st Contact Info) Description 07/21/2025 9:00 AM EST Office Visit [facility] [address] [place] [address] [place] [address] Antolin Boo MD [address] [facility] [place] [address] Scheduled Orders Name Type Priority Associated Diagnoses Orde r Schedule CT Chest Low Dose Cancer Screening WO Imaging Routine Personal history of nicotine dependence Encounter for screening for lung cancer Expected: 02/02/2025, Expires: 01/19/2026 documented as of this encounter Procedures Procedure Name Priority Date/Time Associated Diagnosis Comments POC ALBUMIN/CREATININE RATIO Routine 01/19/2025 10:08 AM EDT Type 2 diabetes mellitus with diabetic microalbuminuria, without long-term current use of insulin CBC AND DIFFERENTIAL Routine 01/19/2025 10:04 AM EDT Primary hypertension Chronic respiratory failure with hypoxia HEMOGLOBIN A1C Routine 01/19/2025 10:04 AM EDT Type 2 diabetes mellitus with diabetic microalbuminuria, without long-term current use of insulin LIPID PANEL Routine 01/19/2025 10:04 AM EDT Type 2 diabetes mellitus with diabetic microalbuminuria, without long-term current use of insulin COMPREHENSIVE METABOLIC PANEL Routine 01/19/2025 10:04 AM EDT Primary hypertension Type 2 diabetes mellitus with diabetic microalbuminuria, without long-term current use of insulin documented in this encounter Results * (ABNORMAL) POC Albumin/Creatinine Ratio Urine (01/19/2025 10:08 AM EDT) POC ALBUMIN, URINE 150 mg/L mg/L POC CREATININE, URINE 200 mg/dL mg/dL POC Urine Albumin Creatinine Ratio 30-300 mg/g <30 Comment:abnormal Lot Number [id number] Expiration Date 12/17/2025 Urine 01/19/2025 10:0 8 AM EDT Antolin Boo MD POINT OF CARE TEST ORDER IRAIS Final Result * (ABNORMAL) Lipid Panel (01/19/2025 10:04 AM EDT) Total Cholesterol 165 0 - 200 mg/dL [facility] Comment: Cholesterol Reference Ranges (U.S. Department of Health and Human Services ATP III Classifications) Desirable <200 mg/dL Borderline High 200-239 mg/dL High Risk >240 mg/dL Triglyceride Reference Ranges (U.S. Department of Health and Human Services ATP III Classifications) Normal <150 mg/dL Borderline High 150-199 mg/dL High 200-499 mg/dL Very High >500 mg/dL HDL Reference Ranges (U.S. Department of Health and Human Services ATP III Classifications) Low <40 mg/dl (major risk factor for CHD) High >60 mg/dl ('negative' risk factor for CHD) LDL Reference Ranges (U.S. Department of Health and Human Services ATP III Classifications) Optimal <100 mg/dL Near Optimal 100-129 mg/dL Borderline High 130-159 mg/dL High 160-189 mg/dL Very High >189 mg/dL LDL is calculated using the NIH LDL-C calculation. Triglycerides 171(H) 0 - 150 mg/dL [facility] HDL Cholesterol 41 40 - 60 mg/dL [facility] VLDL Cholesterol Osmin 30 5 - 40 mg/dL [facility] LDL Chol Calc (NIH) 94 0 - 100 mg/dL [facility] Blood 01/19/2025 10:0 4 AM EDT 01/19/2025 Narrative [facility] ([facility]AT[facility]) - 01/20/2025 3:07 AM EDT Performed at: [address] [place] [address] [id number] Associate Financial Planner: German Webb MD, Phone: [phone] Patient Fasting: Y Antolin Boo MD LAB BLOOD ORDERABLES Fin al Result [facility] ([facility]) [address] [place] [address], [facility] [address] [place] [address], * (ABNORMAL) Hemoglobin A1c (01/19/2025 10:04 AM EDT) Pathologist [facility] Hemoglobin A1C 7.00(H) 4.80 - 5.60 % [facility] Comment: Hemoglobin A1C Ranges: Increased Risk for Diabetes 5.7% to 6.4% Diabetes >= 6.5% Diabetic Goal < 7.0% Blood 01/19/2025 10:0 4 AM EDT 01/19/2025 Narrative [facility] ([facility]) - 01/20/2025 3:07 AM EDT Performed at: [address] [place] [address] [id number] Associate Financial Planner: German Webb MD, Phone: [phone] Patient Fasting: Y Antolin Boo MD LAB BLOOD ORDERABLES Fin al Result [facility] ([facility]) [address] [place] [address], [facility] [address] [place] [address], * (ABNORMAL) Comprehensive Metabolic Panel (01/19/2025 10:04 AM EDT) Pathologist [facility] Glucose 132(H) 65 - 99 mg/dL [facility] BUN 22.0(H) 6.0 - 20.0 mg/dL [facility] Creatinine 0.93 0.76 - 1.27 mg/dL [facility] EGFR Result 94.6 >60.0 mL/min/1.7 3 [facility] Comment: GFR Categories in Chronic Kidney Disease (CKD) GFR Category GFR (mL/min/1.73) Interpretation G1 90 or greater Normal or high (1) G2 60-89 Mild decrease (1) G3a 45-59 Mild to moderate decrease G3b 30-44 Moderate to severe decrease G4 15-29 Severe decrease G5 14 or less Kidney failure (1)In the absence of evidence of kidney disease, neither GFR category G1 or G2 fulfill the criteria for CKD. eGFR calculation 2020 CKD-EPI creatinine equation, which does not include race as a factor BUN/Creatinine Ratio 23.7 7.0 - 25.0 [facility] Sodium 144 136 - 145 mmol/L [facility] Potassium 4.1 3.5 - 5.2 mmol/L [facility] Chloride 92(L) 98 - 107 mmol/L [facility] Total CO2 41.0(H) 22.0 - 29.0 mmol/L [facility] Calcium 9.6 8.6 - 10.5 mg/dL [facility] Total Protein 7.0 6.0 - 8.5 g/dL [facility] Albumin 4.3 3.5 - 5.2 g/dL [facility] Globulin 2.7 gm/dL [facility] A/G Ratio 1.6 g/dL [facility] Total Bilirubin 0.4 0.0 - 1.2 mg/dL [facility] Alkaline Phosphatase 128(H) 39 - 117 U/L [facility] AST (SGOT) 16 1 - 40 U/L [facility] ALT (SGPT) 21 1 - 41 U/L [facility] Blood 01/19/2025 10:0 4 AM EDT 01/19/2025 Narrative [facility] ([facility]) - 01/20/2025 3:07 AM EDT Performed at: [address] [place] [address] [id number] Associate Financial Planner: German Wbeb MD, Phone: [phone] Patient Fasting: Y us Antolin Boo MD LAB BLOOD ORDERABLES Fin al Result [facility] ([facility]) [address] [place] [address], [facility] [address] [place] [address], * (ABNORMAL) CBC & Differential (01/19/2025 10:04 AM EDT) WBC 10.70 3.40 - 10.80 10*3/mm3 [facility] RBC 4.39 4.14 - 5.80 10*6/mm3 [facility] Hemoglobin 12.7(L) 13.0 - 17.7 g/dL [facility] Hematocrit 38.7 37.5 - 51.0 % [facility] MCV 88.2 79.0 - 97.0 fL [facility] MCH 28.9 26.6 - 33.0 pg [facility] MCHC 32.8 31.5 - 35.7 g/dL [facility] RDW 12.4 12.3 - 15.4 % [facility] Platelets 184 140 - 450 10*3/mm3 [facility] Neutrophil Rel % 78.1(H) 42.7 - 76.0 % [facility] Lymphocyte Rel % 13.5(L) 19.6 - 45.3 % [facility] Monocyte Rel % 6.3 5.0 - 12.0 % [facility] Eosinophil Rel % 1.6 0.3 - 6.2 % [facility] Basophil Rel % 0.2 0.0 - 1.5 % [facility] Neutrophils Absolute 8.37(H) 1.70 - 7.00 10*3/mm3 [facility] Lymphocytes Absolute 1.44 0.70 - 3.10 10*3/mm3 [facility] Monocytes Absolute 0.67 0.10 - 0.90 10*3/mm3 [facility] Eosinophils Absolute 0.17 0.00 - 0.40 10*3/mm3 [facility] Basophils Absolute 0.02 0.00 - 0.20 10*3/mm3 [facility] Immature Granulocyte Rel % 0.3 0.0 - 0.5 % [facility] Immature Grans Absolute 0.03 0.00 - 0.05 10*3/mm3 [facility] nRBC 0.0 0.0 - 0.2 /100 WBC [facility] Blood 01/19/2025 10:0 4 AM EDT 01/19/2025 Narrative [facility] ([facility]) - 01/20/2025 3:07 AM EDT Performed at: [address] [place] [address] [id number] Associate Financial Planner: German Webb MD, Phone: [phone] Patient Fasting: Y Antolin Boo MD LAB BLOOD ORDERABLES Fin al Result Performing Organization Address City/State/[facility] Co de Phone Number [facility] ([facility]) [address] [place] [address], [place] [phone] [facility] [address] [place] [address], [place] [phone] documented in this encounter Visit Diagnoses Diagnosis Annual physical exam- Primary Routine general medical examination at a health care facility Primary hypertension Unspecified essential hypertension Type 2 diabetes mellitus with diabetic microalbuminuria, without long-term current use of insulin Panlobular emphysema Other emphysema Chronic respiratory failure with hypoxia Gastroesophageal reflux disease without esophagitis Esophageal reflux Personal history of nicotine dependence Encounter for screening for lung cancer Colon cancer screening Special screening for malignant neoplasms, colon documented in this encounter Care Teams Kindergarten Paraprofessional Relationship Specialty Start Date End Date Antolin Boo MD [address] [place] [id number] PCP - General Family Medicine 07/10/22 documented as of this encounter
--- OUTSIDE RECORDS SUMMARY | 2025-03-06 13:03 | XMS_ITS | Encounter Summary ---
Author Organization [facility] Address [address] [place] [address] Care Team Providers Care Booking Agent Name Role Phone Antolin Boo MD Primary Care Provider + Reason for Visit * Reason Onset Date Comments Advice Only 01/30/2025 Encounter Details Date Type Department Care Team (Late st Contact Info) Description 01/30/2025 Telephone [facility] [address] [place] [address] Antolin Boo MD [address] [place] [address] Advice Only Social History Tobacco Use Types Packs/Day Years [...] on file documented as of this encounter Miscellaneous Notes * Telephone Encounter - Natalie Fuentes MA - 01/30/2025 4:55 PM EDT Left detailed msg informing pt * Telephone Encounter - Montrell Lane MA - 01/30/2025 4:50 PM EDT Left Voicemail * Telephone Encounter - Antolin Boo MD - 01/30/2025 1:32 PM EDT no * Telephone Encounter - Vaishnavi Crawford RegSched Rep - 01/30/2025 10:42 AM EDT Caller: AXEL SOTO Relationship: Emergency Contact Best call back number: [phone] What was the call regarding: PATIENTS SPOUSE WANTS TO SEE IF PATIENT SHOULD WAIT FOR COLONOSCOPY UNTIL AFTER SLEEP STUDY BECAUSE OF HIS BREATHING PROBLEMS Is it okay if the provider responds through MyChart: documented in this encounter Plan of Treatment Upcoming Encounters Date Type Department Care Team (Late st Contact Info) Description 07/21/2025 9:00 AM EST Office Visit [facility] [address] [place] [phone] Antolin Boo MD [address] [place] [address] documented as of this encounter Visit Diagnoses Not on filedocumented in this encounter Care Teams Booking Agent Relationship Specialty Start Date End Date Antolin Boo MD [address] [place] [address] PCP - General Family Medicine 07/10/22 documented as of this encounter
--- OUTSIDE RECORDS SUMMARY | 2025-03-06 13:03 | XMS_ITS | Clinical Summary ---
Author Organization [facility] Address [address] [place] [address] Care Team Providers Care Correction Officer Head Name Role Phone Antolin Boo MD Primary Care Provider + Allergies Active Allergy Reactions Criticality Noted Date Comments Penicillins Anaphylaxis,Other (S ee Comments) High 09/01/2010 Respiratory distress Medications amLODIPine (NORVASC) 10 MG tabletIndications :Primary hypertension Take 1 tablet by mouth Daily. 90 tablet 2 5 Active chlorthalidone (HYGROTON) 25 MG tabletIndications :Primary hypertension Take 1 tablet by mouth Daily. 90 tablet 2 5 Active empagliflozin (Jardiance) 10 MG tablet tabletIndications :Type 2 diabetes mellitus with diabetic microalbuminuria, without long-term current use of insulin Take 1 tablet by mouth Daily. 30 tablet 5 5 Active esomeprazole (nexIUM) 40 MG capsuleIndication s:Gastroesophagea l reflux disease without esophagitis Take 1 capsule by mouth Daily. 90 capsule 2 5 Active lisinopril (PRINIVIL,ZESTRIL ) 40 MG tabletIndications :Primary hypertension Take 1 tablet by mouth Daily. 90 tablet 2 5 Active metFORMIN (GLUCOPHAGE) 1000 MG tabletIndications :Type 2 diabetes mellitus with diabetic microalbuminuria, without long-term current use of insulin Take 1 tablet by mouth Daily With Breakfast. 90 tablet 2 5 Active nebivolol (BYSTOLIC) 10 MG tabletIndications :Primary hypertension Take 1 tablet by mouth Daily. 90 tablet 2 5 Active pravastatin (PRAVACHOL) 20 MG tabletIndications :Type 2 diabetes mellitus with diabetic microalbuminuria, without long-term current use of insulin Take 1 tablet by mouth Daily. 90 tablet 3 5 Active Stiolto Respimat 2.5-2.5 MCG/ACT aerosol solution inhalerIndication s:Panlobular emphysema,Chronic respiratory failure with hypoxia Inhale 2 puffs Daily. 3 each 2 5 Active Ventolin HFA 108 (90 Base) MCG/ACT inhalerIndication s:Panlobular emphysema Inhale 2 puffs Every 4 (Four) Hours As Needed for Wheezing. 18 g 5 5 Active Active Problems Problem Noted Date Diagnosed Date Controlled type 2 diabetes m melisaitus with microalbuminuria, without long-term current use of insulin 01/08/2023 Primary hypertension 07/10/2022 Assessment & Plan (01/07/2024 8:35 AM EDT): Hypertension is stable and controlled Continue current treatment regimen. Blood pressure will be reassessed in 6 months. Assessment & Plan (07/10/2022 9:52 AM EST): Hypertension is unchanged. Dietary sodium restriction. Medication changes per orders. Blood pressure will be reassessed at the next regular appointment. Patient's hydrochlorothiazide will be changed to chlorthalidone 25 mg. Surveillance labs ordered Panlobular emphysema 07/10/2022 Assessment & Plan (01/07/2024 8:36 AM EDT): COPD is stable. Plan: Continue same medication/s without change. Discussed medication dosage, use, side effects, and goals of treatment in detail. Discussed monitoring symptoms and use of quick-relief medications and maintenance medication.. Patient Treatment Goals: symptom prevention, minimizing limitation in activity, prevention of exacerbations and use of ER/inpatient care, maintenance of optimal pulmonary function, and minimization of adverse effects of treatment Followup in 6 months. In addition to the above patient was encouraged to proceed with his in lab polysomnography for assessment of SHAE/obesity hypoventilation syndrome Assessment & Plan (07/10/2022 9:52 AM EST): COPD is Stable. Continue current medications. Type 2 diabetes mellitus wit h diabetic microalbuminuria, without long-term current use of insulin 07/10/2022 Assessment & Plan (01/07/2024 8:34 AM EDT): Diabetes is newly identified. Medication changes per orders. Diabetes will be reassessed in 6 months A1c remains at goal but microalbuminuria is confirmed today. Patient will have Jardiance 10 mg added to his diabetes regimen with repeat testing at his follow- up visit. Assessment & Plan (07/10/2022 9:53 AM EST): Diabetes is improving with treatment. Continue current treatment regimen. Diabetes will be reassessed in 6 months. Refill metformin. A1c ordered. Chronic respiratory failure with hypoxia 022 Assessment & Plan (01/07/2024 8:35 AM EDT): Stable. Continue supplemental oxygen. Assessment & Plan (07/10/2022 9:51 AM EST): Stable on supplemental oxygen at 2 L/min. Encounters Date Type Department Care Team Description 01/31/2025 Results Follow-Up [facility] [address] [place] [address] Antolin Boo MD 01/30/2025 Telephone [facility] [address] [place] [address] Antolin Boo MD Advice Only 01/30/2025 Telephone [facility] [address] [place] [address] Antolin Boo MD REFERRAL 01/20/2025 Results Follow-Up [facility] [address] [place] [address] Antolin Boo MD 01/19/2025 9:15 AM EDT Office Visit [facility] [address] [place] [address] Antolin Boo MD Annual physical exam (Primary Dx); Primary hypertension; [...] screening for lung cancer; Colon cancer screening 01/19/2025 Travel from Last 3 Months Immunizations Immunization Administration Dates Next Due COVID-19 (MODERNA) 1st,2nd,3 rd Dose Monovalent 09/05/2021,08/08/2021 Fluzone >6mos 07/10/2024 Fluzone (or Fluarix & Flulav al for VFC) >6mos 07/09/2023,07/10/2022,06/07/2017 Pneumococcal Conjugate 20-Valent (PCV20) 024 Family History Medical History Relation Name Comments Diabetes Father Jadon Beckham Hypertension Father Jadon Beckham Hypertension Mother Nohemy Thyroid disease Mother Nohemy Diabetes Paternal Aunt Kandi Vision loss Paternal Aunt Kandi Diabetes Paternal Grandmother Hoa Vision loss Paternal Grandmother Hoa Diabetes Paternal Uncle Arnaud Diabetes Sister 1 Anita Diabetes Sister 2 Radha Hypertension Sister 2 Radha Stroke Sister 2 Radha Relation Name Status Comments Father Jadon Beckham Mother Nohemy Paternal Aunt Kandi Paternal Grandmother Hoa Paternal Uncle Arnaud Sister 1 Anita Sister 2 Radha Social History Tobacco Use Types Packs/Day Years Used Date Smoking Tobacco: Former Cigarettes 2 38 0 08/20/1983 - 08/20/2021 Smokeless Tobacco: Never Tobacco Cessation:Counseling Given: Not Answered Comments:I am unsure of start date, it wasnt like i thought i [...] on file Sexual Orientation Not on file Last Filed Vital Signs Vital Sign Reading [...] Mass Index 28.48 01/19/2025 9:23 AM EDT Plan of Treatment Upcoming Encounters Date Type Department Care Team (Late st Contact Info) Description 07/21/2025 9:00 AM EST Office Visit [facility] [address] [facility] [place] [address] Antolin Boo MD [address] [facility] [place] [address] Health Maintenance Due Date Last Done Comments DIABETIC EYE EXAM 1975 Hepatitis B (1 of 3 - 19+ 3- dose series) 1984 TDAP/TD VACCINES (1 - Tdap) 1984 COLOGUARD 2010 COLON CANCER SCREENING 5 YEA R SIGMOIDOSCOPY 2010 [address] COLONOGRAPHY 2010 FECAL OCCULT BLOOD TEST 2010 FIT Testing (1 year) 2010 LUNG CANCER SCREENING 2015 ZOSTER VACCINE (1 of 2) 2015 HEPATITIS C SCREENING 07/10/2022 COVID-19 Vaccine (3 - 2023-2 5 season) 2024 09/05/2021, 08/08/2021 COLONOSCOPY 03/03/2025 03/03/2020, 03/03/2020 COLORECTAL CANCER SCREENING 03/03/2025 INFLUENZA VACCINE 05/20/2025 07/10/2024, , 07/10/2022, Additional history exists HEMOGLOBIN A1C 07/21/2025 01/19/2025, 06/21, 01/07/2024, Additional history exists ANNUAL PHYSICAL 01/19/2026 01/19/2025 DIABETIC FOOT EXAM 01/19/2026 01/19/2025, 0 01/19/2025, 01/19/2025, Additional history exists URINE MICROALBUMIN-CREATININ E RATIO (uACR) 01/19/2026 01/19/2025 Pneumococcal Vaccine 50+ Completed 01/07/2024 Procedures Procedure Name Priority Date/Time Associated Diagnosis Comments FOLATE Routine 02/03/2025 8:51 AM EDT Anemia, unspecified type TSH RFX ON ABNORMAL TO FREE T4 Routine 02/03/2025 8:51 AM EDT Anemia, unspecified type IRON PROFILE Routine 02/03/2025 8:51 AM EDT Anemia, unspecified type FERRITIN Routine 02/03/2025 8:51 AM EDT Anemia, unspecified type RETICULOCYTES Routine 02/03/2025 8:49 AM EDT Anemia, unspecified type CBC AND DIFFERENTIAL Routine 02/03/2025 8:49 AM EDT Anemia, unspecified type SCANNED - LABS 01/30/2025 SCANNED - LABS 01/30/2025 SCANNED - LABS 01/30/2025 PERIPHERAL BLOOD SMEAR, PATH REVIEW Routine 01/29/2025 Anemia, unspecified type POC ALBUMIN/CREATININE RATIO Routine 01/19/2025 10:08 AM EDT Type 2 diabetes mellitus with diabetic microalbuminuria, without long-term current use of insulin CBC AND DIFFERENTIAL Routine 01/19/2025 10:04 AM EDT Primary hypertension Chronic respiratory failure with hypoxia LIPID PANEL Routine 01/19/2025 10:04 AM EDT Type 2 diabetes mellitus with diabetic microalbuminuria, without long-term current use of insulin HEMOGLOBIN A1C Routine 01/19/2025 10:04 AM EDT Type 2 diabetes mellitus with diabetic microalbuminuria, without long-term current use of insulin COMPREHENSIVE METABOLIC PANEL Routine 01/19/2025 10:04 AM EDT Primary hypertension Type 2 diabetes mellitus with diabetic microalbuminuria, without long-term current use of insulin SCANNED - COLONOSCOPY 03/03/2020 from Last 3 Months or Most Recently Relevant to Health Maintenance Results * Folate (02/03/2025 8:51 AM EDT) Blood Antolin Boo MD LAB BLOOD ORDERABLES Fin al Result Performing Organization Address [facility] de Phone Number [facility] (AMBULATORY) [address] [place] [address], [place] [phone] * TSH Rfx On Abnormal To Free T4 (02/03/2025 8:51 AM EDT) Blood Antolin Boo MD LAB BLOOD ORDERABLES Fin al Result Performing Organization Address [facility] de Phone Number [facility] [place] ([facility]) [address] [place] [address], [place] [phone] * Iron Profile w/o Ferritin (02/03/2025 8:51 AM EDT) Blood Antolin Boo MD LAB BLOOD ORDERABLES Fin al Result Performing Organization Address [facility] de Phone Number [facility] [place] ([facility]BUL[facility]ORY) [address] [place] [address], [place] [phone] * Ferritin (02/03/2025 8:51 AM EDT) Blood Antolin Boo MD LAB BLOOD ORDERABLES Fin al Result Performing Organization Address [facility] de Phone Number [facility] (AMBULATORY) [address] [place] [address], [place] [phone] * Reticulocytes (02/03/2025 8:49 AM EDT) Blood us Antolin Boo MD LAB BLOOD ORDERABLES Fin al Result Performing Organization Address [facility] de Phone Number [facility] (AMBULATORY) [address] [place] [address], * CBC & Differential (02/03/2025 8:49 AM EDT) Only the most recent of2 resultswithin the time period is included. Blood Antolin Boo MD LAB BLOOD ORDERABLES Fin al Result Performing Organization Address [facility] de Phone Number [facility] (AMBULATORY) [address] [place] [address], * LABS SCANNED (01/30/2025) Only the most recent of3 resultswithin the time period is included. Antolin Boo MD LAB BLOOD ORDERABLES Fin al Result * Peripheral Blood Smear (01/29/2025) Blood us Antolin Boo MD PATHOLOGY/CYTOLOGY ORDER [place] Final Result Performing Organization Address [facility] de Phone Number [facility] ([facility]) [address] [place] [address], * (ABNORMAL) POC Albumin/Creatinine Ratio Urine (01/19/2025 10:08 AM EDT) POC ALBUMIN, URINE 150 mg/L mg/L POC CREATININE, URINE 200 mg/dL mg/dL POC Urine Albumin Creatinine Ratio 30-300 mg/g <30 Comment:abnormal Lot Number [id number] Expiration Date 12/17/2025 Urine 01/19/2025 10:0 8 AM EDT Antolin Boo MD POINT OF CARE TEST ORDER [place] Final Result * (ABNORMAL) Hemoglobin A1c (01/19/2025 10:04 AM EDT) Hemoglobin A1C 7.00(H) 4.80 - 5.60 % [facility] Comment: Hemoglobin A1C Ranges: Increased Risk for Diabetes 5.7% to 6.4% Diabetes >= 6.5% Diabetic Goal < 7.0% Blood 01/19/2025 10:0 4 AM EDT 01/19/2025 Narrative [facility] [place] (AMBULATORY) - 01/20/2025 3:07 AM EDT Performed at: [address] [place] [id number] Airfield Services Officer: German Webb MD, Phone: [phone] Patient Fasting: Y Antolin Boo MD LAB BLOOD ORDERABLES Fin al Result Performing Organization Address City/State/[facility] Co de Phone Number [facility] [place] (AMBULATORY) [address] [place] [address], [facility] [address] [place] [address], * (ABNORMAL) Lipid Panel (01/19/2025 10:04 AM [...] 10:0 4 AM EDT 01/19/2025 Narrative [facility] (AMBULATORY) - 01/20/2025 3:07 AM EDT Performed at: [address] [place] [address] [id number] Airfield Services Officer: German Webb MD, Phone: [phone] Patient Fasting: Y us Antolin Boo MD LAB BLOOD ORDERABLES Fin al Result [facility] [place] ([facility]UL[facility]ORY) [address] [place] [address], [facility] [address] [place] [address], * (ABNORMAL) Comprehensive Metabolic Panel (01/19/2025 10:04 AM EDT) [facility] Glucose 132(H) 65 - 99 mg/dL [facility] [...] - 01/20/2025 3:07 AM EDT Performed at: [address] [place] [address] [id number] Airfield Services Officer: German Webb MD, Phone: [phone] Patient Fasting: Y Antolin Boo MD LAB BLOOD ORDERABLES Fin al Result [facility] (AMBULATORY) [address] [place] [address], [place] [phone] [facility] [address] [place] [address], [place] [phone] * SCANNED - COLONOSCOPY (03/03/2020) [facility] CHART REVIEW TABS Final Re sult from Last 3 Months or Most Recently Relevant to Health Maintenance Insurance [employer] PPO Care Teams Correction Officer Head Relationship Specialty Start Date End Date Antolin Boo MD [address] [place] [address] PCP - General Family Medicine 07/10/22
--- OUTSIDE RECORDS SUMMARY | 2025-03-06 13:03 | XMS_ITS | Encounter Summary ---
Author Organization [facility] Address [address] [place] [phone] Care Team Providers Care Contract Officer Name Role Phone Antolin Boo MD Primary Care Provider + Reason for Visit * Reason Onset Date Comments REFERRAL 01/30/2025 Encounter Details Date Type Department Care Team (Late st Contact Info) Description 01/30/2025 Telephone [facility] [address] [place] [address] Antolin Boo MD [address] [place] [address] REFERRAL Social History Tobacco Use Types Packs/Day Years [...] encounter Miscellaneous Notes * Telephone Encounter - Vaishnavi Crawford RegSched Rep - 01/30/2025 10:40 AM EDT Caller: AXEL SOTO Relationship: Emergency Contact Best call back number: [phone] What is the medical concern/diagnosis: SLEEP STUDY What specialty or service is being requested: SLEEP MEDICINE Any additional details: documented in this encounter Plan of Treatment Upcoming Encounters Date Type Department Care Team (Late st Contact Info) Description 07/21/2025 9:00 AM EST Office Visit [facility] [address] [facility] [place] [phone] Antolin Boo MD [address] [place] [address] documented as of this encounter Visit Diagnoses Not on filedocumented in this encounter Care Teams Contract Officer Relationship Specialty Start Date End Date Antolin Boo MD [address] [place] [address] PCP - General Family Medicine 07/10/22 documented as of this encounter
--- OUTSIDE RECORDS SUMMARY | 2025-03-06 13:03 | XMS_ITS | Encounter Summary ---
Author Organization [facility] Address [address] [place] [phone] Care Team Providers Care Locker Attendant Name Role Phone Antolin Boo MD Primary Care Provider + Encounter Details Date Type Department Care Team (Late st Contact Info) Description 01/31/2025 Results Follow-Up [facility] [address] [place] [address] Antolin Boo MD [address] [place] [address] Social History Tobacco Use Types Packs/Day Years [...] on file documented as of this encounter Plan of Treatment Upcoming Encounters Date Type Department Care Team (Late st Contact Info) Description 07/21/2025 9:00 AM EST Office Visit [facility] [address] [place] [phone] Antolin Boo MD [address] [place] [address] documented as of this encounter Visit Diagnoses Not on filedocumented in this encounter Care Teams Locker Attendant Relationship Specialty Start Date End Date Antolin Boo MD [address] [place] [address] PCP - General Family Medicine 07/10/22 documented as of this encounter
--- OUTSIDE RECORDS SUMMARY | 2025-03-06 13:03 | XMS_ITS | Encounter Summary ---
Author Organization [facility] Address [address] [place] [phone] Care Team Providers Care Occupational Therapist'S Assistant Name Role Phone Antolin Boo MD Primary Care Provider + Encounter Details Date Type Department Care Team (Latest Contact Info) Description 01/19/2025 Travel Social History Tobacco Use Types Packs/Day Years [...] on file documented as of this encounter Functional Status documented as of this encounter Plan of Treatment Upcoming Encounters Date Type Department Care Team (Late st Contact Info) Description 07/21/2025 9:00 AM EST Office Visit [facility] [address] [place] [phone] Antolin Boo MD [address] [place] [address] documented as of this encounter Visit Diagnoses Not on filedocumented in this encounter Care Teams Occupational Therapist'S Assistant Relationship Specialty Start Date End Date Antolin Boo MD [address] [place] [address] PCP - General Family Medicine 07/10/22 documented as of this encounter
--- OUTSIDE RECORDS SUMMARY | 2025-03-06 13:03 | XMS_ITS | Encounter Summary ---
Author Organization [facility] Address [address] [place] [id number] Care Team Providers Care Quality Review Specialist Name Role Phone Antolin Boo MD Primary Care Provider + Encounter Details Date Type Department Care Team (Late st Contact Info) Description 01/20/2025 Results Follow-Up [facility] [address] [place] [address] Antolin Boo MD [address] [place] [address] Social History Tobacco Use Types [...] Description 07/21/2025 9:00 AM EST Office Visit [facility] [address], [place] [address] Antolin Boo MD [address], [place] [address] documented as of this encounter Results * Folate (02/03/2025 8:51 AM EDT) Blood Antolin Boo MD LAB BLOOD ORDERABLES Fin al Result Performing Organization Address [facility] de Phone Number [facility] (AMBULATORY) [address] [place] [address], [place] [phone] * TSH Rfx On Abnormal To Free T4 (02/03/2025 8:51 AM EDT) Blood Antolin Boo MD LAB BLOOD ORDERABLES Fin al Result Performing Organization Address [facility] de Phone Number [facility] ([facility]) [address] [place] [address], [place] [phone] * Iron Profile w/o Ferritin (02/03/2025 8:51 AM EDT) Blood Antolin Boo MD LAB BLOOD ORDERABLES Fin al Result Performing Organization Address [facility] de Phone Number [facility] ([facility]) [address] [place] [address], [place] [phone] * Ferritin (02/03/2025 8:51 AM EDT) Blood Antolin Boo MD LAB BLOOD ORDERABLES Fin al Result Performing Organization Address [facility] de Phone Number [facility] ([facility]) [address] [place] [address], [place] [phone] * Reticulocytes (02/03/2025 8:49 AM EDT) Blood Antolin Boo MD LAB BLOOD ORDERABLES Fin al Result Performing Organization Address [facility] de Phone Number [facility] (AMBULATORY) [address] [place] [address], [place] [phone] * CBC & Differential (02/03/2025 8:49 AM EDT) Blood Antolin Boo MD LAB BLOOD ORDERABLES Fin al Result Performing Organization Address [facility] de Phone Number [facility] (AMBULATORY) [address] [place] [address], [place] [phone] * Peripheral Blood Smear (01/29/2025) Blood Antolin Boo MD PATHOLOGY/CYTOLOGY ORDER IRAIS Final Result Performing Organization Address [facility] de Phone Number [facility] [address] [place] [address], [place] [phone] documented in this encounter Visit Diagnoses Diagnosis Anemia, unspecified type- Primary documented in this encounter Care Teams Quality Review Specialist Relationship Specialty Start Date End Date Antolin Boo MD [address] [place] [address] [place] [address] PCP - General Family Medicine 07/10/22 documented as of this encounter
== END 2025-03-06 23:59 | disposition home or self-care (01) ==
LOC: LAB 13:02
PROVIDERS: PCP Family Medicine; Visit Provider Internal Medicine Pulmonary Disease
DX: J43.9 Emphysema, unspecified (principal)
CPT/HCPCS: 36415; 82103; 82104

== ENCOUNTER → 2025-04-01 11:32 | Day surgery (SDC) | payer BC, SELFPAY ==
[2025-03-31 13:44] VITALS: BMI 29.0
--- NOTE | 2025-03-31 14:20 | EXP.HP ---
History of Present Illness *Admission Date: 04/01/25 *Reason for visit:: Personal history of adenomatous colon polyps *History of present illness: Mr. Beckham is a 59-year-old gentleman who is here for colon cancer screening. The patient does have a personal history of adenomatous colon polyps. He has been followed with colonoscopy with Dr. Link Walker at the [facility]. The examination is deemed medically necessary for screening colonoscopy. The patient has been seen, interviewed and examined prior to the procedure by both myself and the anesthesia provider. [facility] Disclaimer: The information contained in this section may have been updated after the patient was seen, as this information can be updated by other users. Medical History (Updated 04/01/25 @ 12:56 by Rei Gomez II, MD) COPD (chronic obstructive pulmonary disease) Diabetes Hyperlipidemia Hypertension Chronic respiratory failure with hypoxia Multiple lung nodules on CT Dyspnea on exertion Pulmonary emphysema Surgical History Hx of colonoscopy No significant past surgical history Family History Other Colon cancer Diabetes Social History (Updated 04/01/25 @ 12:40 by Kaleb Heller CRNA) Smoking Status: Former smoker tobacco type: cigarettes packs per day: 2 pack-years: 50 alcohol intake: never substance use type: denies use current occupational status: retired Travel in the last 8 weeks?: None Have you lived/traveled outside US in past 30 days?: No Contact w/someone who lives/traveled outside US past 30 days?: No Exposure to someone with infectious disease in past 14 days?: No Do you have a fever (greater than 100.4 F or 38 C)?: No Have you tested positive for COVID-19?: No Exposed to someone with COVID-19 in past 14 days?: No Do you have a sore throat?: No Do you have a cough?: No Do you have any weakness?: No Are you experiencing any nausea/vomitting?: No Do you have any diarrhea?: No Are you experiencing any unusual bleeding?: No Do you have any muscle aches/pain?: No Do you have any abdominal pain?: No Are you experiencing loss of taste or smell?: No Other Medical History Have you received the Flu Vaccine for this season: No Have you received the Pneumonia Vaccine: Yes Review of Systems Review of Systems Review of systems (narrative): Negative *Cardiovascular Comments: Negative *Gastrointestinal Comments: Negative *Genitourinary Comments: Negative *Musculoskeletal Comments: Negative *Neurologic Comments: Negative Meds Home Medications and Allergies Home Medications ?Medication ?Instructions ?Recorded ?Confirmed ?Type esomeprazole magnesium 40 mg 40 mg PO DAILY 01/20/21 03/31/25 History capsule,delayed release (Nexium) lisinopril 40 mg tablet 40 mg PO DAILY 01/20/21 03/31/25 History metformin 1,000 mg tablet 1,000 mg PO DAILY 01/20/21 03/31/25 History nebivolol 20 mg tablet (Bystolic) 10 mg PO DAILY 01/20/21 04/01/25 History tiotropium 2.5 mcg-olodaterol 2.5 2 puff inhalation DAILY 01/20/21 03/31/25 History mcg/actuation mist for inhalation (Stiolto Respimat) albuterol sulfate 90 mcg/actuation 4 puffs inhalation QIDP PRN 08/05/21 03/31/25 Rx aerosol inhaler Shortness Of Breath #1 ea chlorthalidone 25 mg tablet 25 mg PO DAILY 03/06/25 03/31/25 History empagliflozin 10 mg tablet 10 mg PO DAILY 03/06/25 03/31/25 History (Jardiance) pravastatin 20 mg tablet 20 mg PO DAILY 03/06/25 03/31/25 History sodium,potassium,mag sulfates 17.5 See Rx Instructions PO .COMPLEX 03/20/25 03/31/25 Rx gram-3.13 gram-1.6 gram oral soln #354 mL (Suprep Bowel Prep Kit) amlodipine 10 mg tablet 10 mg PO DAILY 03/31/25 03/31/25 History New Prescriptions to Start Prescriptions: Allergies Allergy/AdvReac Type Severity Reaction Status Date / Time Penicillins Allergy Intermediate Swelling Verified 04/01/25 12:21 of Lip/Tongue/Throat Exam Data for Last 24 hours I & O for Last 24 hours: Intake & Output 03/28/25 03/29/25 03/30/25 03/31/25 23:59 23:59 23:59 23:59 Weight 208 lb *Routine HEENT Exam Head: Present normocephalic Eye: Present EOMI and PERRL ENT: Present mucous membranes moist *Routine Neck Exam Neck: Present supple *Routine Respiratory Exam Respiratory: Present CTA bilaterally *Routine Cardiovascular Exam Cardiovascular: Present RRR *Routine Abdominal Exam Abdominal: Present soft and normoactive bowel sounds; Absent tenderness *Routine Rectal Exam Rectal:: deferred *Routine Genitalia Exam Genitalia:: deferred *Routine Extremities Exam Extremities: Absent cyanosis, clubbing or edema *Routine Skin Exam Skin: Present warm; Absent rash *Routine Neurological Exam Neurological: Present alert and oriented X3 Assessment and Plan *Assessment and plan (1) Colon cancer screening: Status: Acute Category: Medical Code(s): Z12.11 - Encounter for screening for malignant neoplasm of colon (2) Personal history of adenomatous and serrated colon polyps: Status: Acute Category: Medical Code(s): Z86.0101 - Personal history of adenomatous and serrated colon polyps Plan A/P: 1. Personal history of adenomatous colon polyps and colon cancer screening is the preprocedural diagnosis. The patient will be anesthetized/sedated using MAC sedation. The patient has been seen and examined. Cardiac and lung assessment prior to the examination is stable. Proceed with planned screening colonoscopy.
[2025-04-01 12:07] VITALS: BP 153/72; PULSE 92; RESP 20; TEMP 36.5; O2SAT 91; BMI 29.0
[2025-04-01] MEDS: LACTATED RINGERS 1000ML 1,000 ML 50 ML IV (12:19)
[2025-04-01 12:24] LABS: POC Glucose,Bedside 122 (70-110)
--- NOTE | 2025-04-01 12:40 | P.PNANES_ITS ---
[facility] Disclaimer: The information contained in this section may have been updated after the patient was seen, as this information can be updated by other users. Medical History COPD (chronic obstructive pulmonary disease) Diabetes Hyperlipidemia Hypertension Chronic respiratory failure with hypoxia Multiple lung nodules on CT Dyspnea on exertion Pulmonary emphysema Surgical History Hx of colonoscopy No significant past surgical history Family History Other Colon cancer Diabetes Social History (Updated 04/01/25 @ 12:17 by Donna Rizzo RN) Smoking Status: Former smoker tobacco type: cigarettes packs per day: 2 pack- years: 50 alcohol intake: never substance use type: denies use current occupational status: retired Travel in the last 8 weeks?: None [facility] Anesthesia Checklist Patient Identification Patient Identification: Arm Band and Verbal (Name & ) Structural Data Admitted From: Home Planned Operative Procedure/s: Colonoscopy Consent for Planned Operative Procedure(s) Verified: Yes Verified Documents: Surgical Consent NPO Status Verified Time NPO: 00:00 Chart Verification Results Verified: None Additional verifications Anesthesia Reactions: No Airway Assessment Mallampati Score:: Class II C-Spine Mobility Assessed: Yes TMJ Mobility Assessed: Yes Dentition: Poor Dentition Neurological Assessment Level of Consciousness: Awake, Alert and Appropriate Hx Seizures: No Numbness or tingling in extremities: No Anesthesia Plan Anesthesia Risk discussed: Yes Anesthesia Plan: Verified ASA Class: III Anesthesia Type: MAC
--- NOTE | 2025-04-01 12:56 | HMH.PROCNOTE ---
[facility] Procedure Note Date: 04/01/25 Time: 13:13 Procedure Note:: Colonoscopy Procedure Report: Colonoscopy with cold snare polypectomy Endoscopist: Rei Gomez II, MD Referring physician: Antolin Boo MD Date of Procedure: April 01, 2025 Equipment: Olympus [id number] adult colonoscope Sedation: MAC sedation Indication: Mr. Beckham is a 59-year-old gentleman who is here for follow-up screening/surveillance colonoscopy. He has had his routine colonoscopies in [place] (Link Walker MD, [facility]). He does state that his initial colonoscopy revealed 3 polyps and he believes his last colonoscopy 3 years ago revealed a single polyp. He reports no abdominal pain, weight loss, change in his bowel habits or rectal bleeding. He states that his maternal grandfather had colon cancer. Procedure: Prior to the procedure, a history and physical exam was performed, and patient's medications and allergies were reviewed. The risks, benefits and alternatives of the sedation and procedure were discussed with the patient. All questions were answered and informed consent was obtained. The patient was brought to the procedure room. Patient identification and proposed procedure were verified by the physician and the nurse. The patient was placed in a left lateral decubitus position and the scope was passed under direct vision. Throughout the procedure, the patient's blood pressure, pulse, and oxygen saturations were monitored continuously. The colonoscopy was accomplished without difficulty. The patient tolerated the procedure well. Findings: On digital rectal examination there was normal rectal tone. There were no external hemorrhoids. The prostate was 2+, smooth, soft, symmetric without nodules. The colonoscope was introduced through the anal canal to the rectum and advanced to the cecum. The ileocecal valve and appendiceal orifice were identified. The scope was advanced a short distance into the ileum which appeared grossly normal. The scope was then withdrawn into the colon. There were 3 polyps (cecum x 2 (4 and 5 mm) and rectosigmoid x 1 (4 mm)). These were both removed via cold snare polypectomy. The remaining cecum, ascending and transverse colon and mucosa were grossly normal. There were scattered diverticuli throughout the descending and sigmoid colon (LEFT colon). The rectum itself was normal. Upon retroflexion within the rectum there were grade 1-2 internal hemorrhoids. The preparation was excellent throughout with [place] Preparation Score of 9. The cecal time was 12 minutes. Impression: 1. Diminutive colonic polyps x 3 2. Left-sided diverticulosis 3. Grade 1-2 internal hemorrhoids Plan: I will follow-up the polyp histology and recommend repeat surveillance colonoscopy again in 5 years if the polyps are adenomatous. I would encourage bulking psyllium fiber supplementation on a maintenance basis.
== END | disposition home or self-care (01) ==
PROVIDERS: PCP Family Medicine; Visit Provider Internal Medicine Gastroenterology
PROC: 0DJD8ZZ Inspection of Lower Intestinal Tract, Via Natural or Artificial Opening Endoscopic (ICD-10-PCS; CPT 45378; principal; 2025-04-01 13:30)
DX: Z12.11 Encounter for screening for malignant neoplasm of colon (principal); D12.0 Benign neoplasm of cecum; K63.5 Polyp of colon; K57.30 Diverticulosis of large intestine without perforation or abscess without bleeding; K64.0 First degree hemorrhoids; K64.1 Second degree hemorrhoids; J44.9 Chronic obstructive pulmonary disease, unspecified; E78.5 Hyperlipidemia, unspecified; I10 Essential (primary) hypertension; E11.9 Type 2 diabetes mellitus without complications; Z87.891 Personal history of nicotine dependence; Z79.84 Long term (current) use of oral hypoglycemic drugs; Z86.0101 Personal history of adenomatous and serrated colon polyps; Z88.0 Allergy status to penicillin
CPT/HCPCS: 45385; 82962; J2003; J2704; J7120

== ENCOUNTER 2025-04-02 07:35 | Outpatient (CLI) | payer BC, SELFPAY ==
--- OUTSIDE RECORDS SUMMARY | 2025-04-02 07:38 | XMS_ITS | Encounter Summary ---
Author Organization [facility] Address [address] [place] [id number] Care Team Providers Care Sleeve Turner Name Role Phone Antolin Boo MD Primary Care Provider + Reason for Visit * Reason Onset Date Comments REFERRAL 01/30/2025 Encounter Details Date Type Department Care Team (Late st Contact Info) Description 01/30/2025 Telephone [facility] [address] [place] [address] Antolin Boo MD [address] [place] [address] REFERRAL Social History Tobacco Use [...] Relationship: Emergency Contact Best call back number: [phone] What is the medical concern/diagnosis: SLEEP STUDY What specialty or service is being requested: SLEEP MEDICINE Any additional details: documented in this encounter Plan of Treatment Upcoming Encounters Date Type Department Care Team (Late st Contact Info) Description 07/21/2025 9:00 AM EST Office Visit [facility] [address] [facility] [place] [id number] Antolin Boo MD [address] [place] [address] documented as of this encounter Visit Diagnoses Not on filedocumented in this encounter Care Teams Sleeve Turner Relationship Specialty Start Date End Date Antolin Boo MD [address] [place] [address] PCP - General Family Medicine 07/10/22 documented as of this encounter
--- OUTSIDE RECORDS SUMMARY | 2025-04-02 07:38 | XMS_ITS | Encounter Summary ---
Author Organization [facility] Address [address] [place] [id number] Care Team Providers Care Welder Railcar Mechanic Name Role Phone Antolin Boo MD Primary Care Provider + Encounter Details Date Type Department Care Team (Late st Contact Info) Description 01/31/2025 Results Follow-Up [facility] [address] [place] [address] Antolin Boo MD [address] [place] [address] Social History Tobacco Use Types [...] [facility] [address] [place] [id number] Antolin Boo MD [address] [place] [address] documented as of this encounter Visit Diagnoses Not on filedocumented in this encounter Care Teams Welder Railcar Mechanic Relationship Specialty Start Date End Date Antolin Boo MD [address] [place] [address] PCP - General Family Medicine 07/10/22 documented as of this encounter
--- OUTSIDE RECORDS SUMMARY | 2025-04-02 07:38 | XMS_ITS | Encounter Summary ---
Author Organization [facility] Address [address] [place] [id number] Care Team Providers Care Email Marketer Name Role Phone Antolin Boo MD Primary Care Provider + Encounter Details Date Type Department Care Team (Late st Contact Info) Description 01/20/2025 Results Follow-Up [facility] [address] [place] [address] Antolin Boo MD [address] [place] [address] Social History Tobacco Use Types [...] Description 07/21/2025 9:00 AM EST Office Visit [facility] [address], [place] [address] Antolin Boo MD [address], [place] [address] documented as of this encounter Results * Folate (02/03/2025 8:51 AM EDT) Blood Antolin Boo MD LAB BLOOD ORDERABLES Fin al Result Performing Organization Address [facility] de Phone Number [facility] (AMBULATORY) [address] [place] [address], [place] [phone] * TSH Rfx On Abnormal To Free T4 (02/03/2025 8:51 AM EDT) Blood Antolin Boo MD LAB BLOOD ORDERABLES Fin al Result Performing Organization Address [facility] de Phone Number [facility]) [address] [place] [address], [place] [phone] * Iron Profile w/o Ferritin (02/03/2025 8:51 AM EDT) Blood Antolin Boo MD LAB BLOOD ORDERABLES Fin al Result Performing Organization Address [facility] de Phone Number [facility] ([facility]) [address] [place] [address], [place] [phone] * Ferritin (02/03/2025 8:51 AM EDT) Blood Antolin Boo MD LAB BLOOD ORDERABLES Fin al Result Performing Organization Address [facility] de Phone Number [facility] ([facility]UL[facility]) [address] [place] [address], [place] [phone] * Reticulocytes (02/03/2025 8:49 AM EDT) Blood Antolin Boo MD LAB BLOOD ORDERABLES Fin al Result Performing Organization Address [facility] de Phone Number [facility] (AMBULATORY) [address] [place] [address], [place] [phone] * CBC & Differential (02/03/2025 8:49 AM EDT) Blood Antolin Boo MD LAB BLOOD ORDERABLES Fin al Result Performing Organization Address [facility] de Phone Number [facility] (AMBULATORY) [address] [place] [address], [place] [phone] * Peripheral Blood Smear (01/29/2025) Blood Antolin Boo MD PATHOLOGY/CYTOLOGY ORDER IRAIS Final Result Performing Organization Address [facility] de Phone Number [facility] [address] [place] [address], [place] [phone] documented in this encounter Visit Diagnoses Diagnosis Anemia, unspecified type- Primary documented in this encounter Care Teams Email Marketer Relationship Specialty Start Date End Date Antolin Boo MD [address] [place] [address] [place] [address] PCP - General Family Medicine 07/10/22 documented as of this encounter
--- OUTSIDE RECORDS SUMMARY | 2025-04-02 07:38 | XMS_ITS | Clinical Summary ---
Author Organization [facility] Address [address] [place] [address] Care Team Providers Care Splicer Operator Name Role Phone Antolin Boo MD Primary [...] Department Care Team Description 01/31/2025 Results Follow-Up [facility] [address] [place] [address] Antolin Boo MD 01/30/2025 Telephone [facility] [address] [place] [address] Antolin Boo MD Advice Only 01/30/2025 Telephone [facility] [address] [place] [address] Antolin Boo MD REFERRAL 01/20/2025 Results Follow-Up [facility] [address] [place] [address] Antolin Boo MD 01/19/2025 9:15 AM EDT Office Visit [facility] [address] [place] [address] [...] Description 07/21/2025 9:00 AM EST Office Visit [facility] [address] [facility] [place] [address] Antolin Boo MD 210 [facility] [place] [address] Health Maintenance Due Date Last Done [...] Procedure Name Priority Date/Time Associated Diagnosis Comments SCANNED - LABS 04/01/2025 SCANNED - LABS 03/06/2025 FOLATE Routine 02/03/2025 8:51 AM EDT Anemia, [...] Recently Relevant to Health Maintenance Results * LABS SCANNED (04/01/2025) Only the most recent of5 resultswithin the time period is included. Antolin Boo MD LAB BLOOD ORDERABLES Fin al Result * Folate (02/03/2025 8:51 AM EDT) Blood Antolin Boo MD LAB BLOOD ORDERABLES Fin al Result Performing Organization Address [facility] de Phone Number [facility] (AMBULATORY) [address] [place] [address], [place] [phone] * TSH Rfx On Abnormal To Free T4 (02/03/2025 8:51 AM EDT) Blood Antolin Boo MD LAB BLOOD ORDERABLES Fin al Result Performing Organization Address [facility] de Phone Number [facility] (AMBULATORY) [address] [place] [address], [place] [phone] * Iron Profile w/o Ferritin (02/03/2025 8:51 AM EDT) Blood Antolin Boo MD LAB BLOOD ORDERABLES Fin al Result Performing Organization Address [facility] Co de Phone Number [facility] (AMBULATORY) [address] [place] [address], [place] [phone] * Ferritin (02/03/2025 8:51 AM EDT) Blood Antolin Boo MD LAB BLOOD ORDERABLES Fin al Result Performing Organization Address [facility] de Phone Number [facility] [address] [place] [address], [place] [phone] * Reticulocytes (02/03/2025 8:49 AM EDT) Blood Antolin Boo MD LAB BLOOD ORDERABLES Fin al Result Performing Organization Address [facility] de Phone Number [facility] [address] [place] [address], * CBC & Differential (02/03/2025 8:49 AM EDT) Only the most recent of2 resultswithin the time period is included. Blood Antolin Boo MD LAB BLOOD ORDERABLES Fin al Result Performing Organization Address [facility] de Phone Number [facility] [address] [place] [address], [place] [phone] * Peripheral Blood Smear (01/29/2025) Blood Antolin Boo MD PATHOLOGY/CYTOLOGY ORDER IRAIS Final Result Performing Organization Address [facility] de Phone Number [facility] [address] [place] [address], [place] [phone] * (ABNORMAL) POC Albumin/Creatinine Ratio Urine (01/19/2025 [...] - 01/20/2025 3:07 AM EDT Performed at: [address] [place] [id number] Car Repair Supervisor: German Webb MD, Phone: [phone] Patient Fasting: Y Antolin Boo MD LAB BLOOD ORDERABLES Fin al Result [facility] (AMBULATORY) [address] [place] [phone], [facility] [address] [place] [address], * (ABNORMAL) Lipid Panel (01/19/2025 10:04 AM [...] 10:0 4 AM EDT 01/19/2025 Narrative [facility] (AMBULATORY) - 01/20/2025 3:07 AM EDT Performed at: [address] [id number] Car Repair Supervisor: German Webb MD, Phone: [phone] Patient Fasting: Y Antolin Boo MD LAB BLOOD ORDERABLES Fin al Result [facility] (AMBULATORY) [address] [place] [address], [facility] [address] [place] [address], [place] [phone] * (ABNORMAL) Comprehensive Metabolic Panel (01/19/2025 10:04 AM EDT) [facility] Glucose 132(H) 65 - 99 mg/dL [...] - 01/20/2025 3:07 AM EDT Performed at: [address] [place] [id number] Car Repair Supervisor: German Webb MD, Phone: [phone] Patient Fasting: Y Antolin Boo MD LAB BLOOD ORDERABLES Fin al Result [facility] (AMBULATORY) [address] [place] [address], [facility] [address] [place] [address], * SCANNED - COLONOSCOPY (03/03/2020) [facility] CHART REVIEW TABS Final Re sult from Last 3 Months or Most Recently Relevant to Health Maintenance Insurance [facility] PPO Care Teams Splicer Operator Relationship Specialty Start Date End Date Antolin Boo MD [address] [place] [address] PCP - General Family Medicine 07/10/22
[2025-04-02 09:20] VITALS: PULSE 71; PULSE 74
[2025-04-02] MEDS: ALBUTEROL 0.083% 2.5 MG/3 ML NEB IH (09:20)
--- NOTE | 2025-04-02 09:30 | CT_ITS ---
FINAL REPORT TECHNIQUE: Thin section axial images were obtained from the lung apices through the upper abdomen without contrast. This study was performed with techniques to keep radiation doses as low as reasonably achievable (ALARA). Individualized dose reduction techniques using automated exposure control or adjustment of mA and/or kV according to the patient's size were employed. CLINICAL HISTORY: Shortness of Breath FINDINGS: There is no mediastinal, hilar, or axillary lymphadenopathy. There are enlarged subcarinal lymph nodes. No pleural or pericardial effusion. There are changes of emphysema. There are left greater than right lower lobe reticular nodular opacities concerning for bronchopneumonia. Left upper lobe nodule measures 5 mm is best seen on series 2, image 39. Left lower lobe nodule measures 5 mm on image 53.. Limited images of the upper abdomen show a 12 mm left adrenal nodule which is not an adenoma by strict criteria. There is no acute osseous abnormality. IMPRESSION: Bilateral lower lobe bronchopneumonia. Several left lung nodules. Recommend follow-up after risk stratification by Fleischner criteria. Left adrenal nodule, not an adenoma by strict criteria however in the absence of known malignancy, likely an adenoma. Reviewed, Interpreted and Dictated by April Still MD Transcribed by Joycelyn Olea Authenticated and [facility]
== END 2025-04-02 23:59 | disposition home or self-care (01) ==
PROVIDERS: PCP Family Medicine; Visit Provider Internal Medicine Pulmonary Disease
DX: J18.9 Pneumonia, unspecified organism (principal); J44.1 Chronic obstructive pulmonary disease with (acute) exacerbation; R91.8 Other nonspecific abnormal finding of lung field; E27.8 Other specified disorders of adrenal gland; R94.2 Abnormal results of pulmonary function studies
CPT/HCPCS: 71250; 87070; 87205; 94060; 94618; 94640; 94726; 94729

== ENCOUNTER 2025-04-03 08:57 | Outpatient (CLI) | payer BC, SELFPAY ==
--- OUTSIDE RECORDS SUMMARY | 2025-04-03 09:02 | XMS_ITS | Encounter Summary ---
Author Organization [facility] Address [address] [place] [id number] Care Team Providers Care Mfts Name Role Phone Antolin Boo MD Primary Care Provider + Reason for Visit * Reason Onset Date Comments REFERRAL 01/30/2025 Encounter Details Date Type Department Care Team (Late st Contact Info) Description 01/30/2025 Telephone [facility] [address] [place] [address] Antolin Boo MD [address] [place] [address] REFERRAL Social History Tobacco Use [...] Relationship: Emergency Contact Best call back number: [phone] What is the medical concern/diagnosis: SLEEP STUDY What specialty or service is being requested: SLEEP MEDICINE Any additional details: documented in this encounter Plan of Treatment Upcoming Encounters Date Type Department Care Team (Late st Contact Info) Description 07/21/2025 9:00 AM EST Office Visit [facility] 210 [facility] [place] [id number] Antolin Boo MD [address] [place] [address] documented as of this encounter Visit Diagnoses Not on filedocumented in this encounter Care Teams Mfts Relationship Specialty Start Date End Date Antolin Boo MD [address] [place] [address] PCP - General Family Medicine 07/10/22 documented as of this encounter
--- OUTSIDE RECORDS SUMMARY | 2025-04-03 09:02 | XMS_ITS | Encounter Summary ---
Author Organization [facility] Address [address] [place] [id number] Care Team Providers Care Architect Naval Name Role Phone Antolin Boo MD Primary Care Provider + Encounter Details Date Type Department Care Team (Late st Contact Info) Description 01/31/2025 Results Follow-Up [facility] [address] [place] [address] Antolin Boo MD [address] [place] [address] Social History Tobacco Use Types [...] Description 07/21/2025 9:00 AM EST Office Visit [facility] [address] [place] [phone] Antolin Boo MD [address] [place] [address] documented as of this encounter Visit Diagnoses Not on filedocumented in this encounter Care Teams Architect Naval Relationship Specialty Start Date End Date Antolin Boo MD [address] [place] [address] PCP - General Family Medicine 07/10/22 documented as of this encounter
--- OUTSIDE RECORDS SUMMARY | 2025-04-03 09:02 | XMS_ITS | Encounter Summary ---
Author Organization [facility] Address [address] [place] [id number] Care Team Providers Care Coal Pulverizer Operator Name Role Phone Antolin Boo MD Primary Care Provider + Encounter Details Date Type Department Care Team (Late st Contact Info) Description 01/20/2025 Results Follow-Up [facility] [address] [place] [address] Antolin Boo MD 210 [place] [address] Social History Tobacco Use Types [...] Description 07/21/2025 9:00 AM EST Office Visit [facility] [address] [place], [place] [address] Antolin Boo MD [address] [place] [place] [address] documented as of this encounter Results * Folate (02/03/2025 8:51 AM EDT) Blood Antolin Boo MD LAB BLOOD ORDERABLES Fin al Result Performing Organization Address [facility] de Phone Number [facility] (AMBULATORY) [address] [place] [address], [place] [phone] * TSH Rfx On Abnormal To Free T4 (02/03/2025 8:51 AM EDT) Blood Antolin Boo MD LAB BLOOD ORDERABLES Fin al Result Performing Organization Address [facility] de Phone Number [facility] (AMBULATORY) [address] [place] [address], [place] [phone] * Iron Profile w/o Ferritin (02/03/2025 8:51 AM EDT) Blood Antolin Boo MD LAB BLOOD ORDERABLES Fin al Result Performing Organization Address [facility] de Phone Number [facility] (AMBULATORY) [address] [place] [address], [place] [phone] * Ferritin (02/03/2025 8:51 AM EDT) Blood Antolin Boo MD LAB BLOOD ORDERABLES Fin al Result Performing Organization Address [facility] de Phone Number [facility] (AMBULATORY) [address] [place] [address], [place] [phone] * Reticulocytes (02/03/2025 8:49 AM EDT) Blood Antolin Boo MD LAB BLOOD ORDERABLES Fin al Result Performing Organization Address [facility] de Phone Number [facility] (AMBULATORY) [address] [place] [address], [place] [phone] * CBC & Differential (02/03/2025 8:49 AM EDT) Blood Antolin Boo MD LAB BLOOD ORDERABLES Fin al Result Performing Organization Address [facility] de Phone Number [facility] (AMBULATORY) [address] [place] [address], [place] [phone] * Peripheral Blood Smear (01/29/2025) Blood Antolin Boo MD PATHOLOGY/CYTOLOGY ORDER IRAIS Final Result Performing Organization Address [facility] de Phone Number [facility] [address] [place] [address], [place] [phone] documented in this encounter Visit Diagnoses Diagnosis Anemia, unspecified type- Primary documented in this encounter Care Teams Coal Pulverizer Operator Relationship Specialty Start Date End Date Antolin Boo MD [address] [place] [address] [place] [address] PCP - General Family Medicine 07/10/22 documented as of this encounter
--- OUTSIDE RECORDS SUMMARY | 2025-04-03 09:02 | XMS_ITS | Clinical Summary ---
Author Organization [facility] Address [address] [place] [address] Care Team Providers Care Chip Washer Name Role Phone Antolin Boo MD Primary [...] Department Care Team Description 01/31/2025 Results Follow-Up [facility] [address] [place] [address] Antolin Boo MD 01/30/2025 Telephone [facility] [address] [place] [address] Antolin Boo MD Advice Only 01/30/2025 Telephone [facility] [address] [place] [address] Antolin Boo MD REFERRAL 01/20/2025 Results Follow-Up [facility] [address] [place] [address] Antolin Boo MD 01/19/2025 9:15 AM EDT Office Visit [facility] [address] [place] [address] [...] 9:00 AM EST Office Visit [facility] [address] [facility] [place] [address] Antolin Boo MD 210 [facility] [place] [address] Health Maintenance Due Date Last Done [...] ORDERABLES Fin al Result Performing Organization Address [facility] de Phone Number [facility] (AMBULATORY) [address] [place] [address], [place] [phone] * TSH Rfx On Abnormal To Free T4 (02/03/2025 8:51 AM EDT) Blood Antolin Boo MD LAB BLOOD ORDERABLES Fin al Result Performing Organization Address [facility] de Phone Number [facility] (AMBULATORY) [address] [place] [address], [place] [phone] * Iron Profile w/o Ferritin (02/03/2025 8:51 AM EDT) Blood Antolin Boo MD LAB BLOOD ORDERABLES Fin al Result Performing Organization Address [facility] Co de Phone Number [facility] (AMBULATORY) [address] [place] [address], [place] [phone] * Ferritin (02/03/2025 8:51 AM EDT) Blood Antolin Boo MD LAB BLOOD ORDERABLES Fin al Result Performing Organization Address [facility] de Phone Number [facility] [address] [place] [address], [place] [phone] * Reticulocytes (02/03/2025 8:49 AM EDT) Blood Antolin Boo MD LAB BLOOD ORDERABLES Fin al Result Performing Organization Address [facility] de Phone Number [facility] ([facility] [address] [place] [address], * CBC & Differential (02/03/2025 8:49 AM EDT) Only the most recent of2 resultswithin the time period is included. Blood Antolin Boo MD LAB BLOOD ORDERABLES Fin al Result Performing Organization Address [facility] de Phone Number [facility] ([facility] [address] [place] [address], [place] [phone] * Peripheral Blood Smear (01/29/2025) Blood Antolin Boo MD PATHOLOGY/CYTOLOGY ORDER IRAIS Final Result Performing Organization Address [facility] de Phone Number [facility] ([facility] [address] [place] [address], [place] [phone] * (ABNORMAL) POC Albumin/Creatinine Ratio Urine (01/19/2025 [...] - 01/20/2025 3:07 AM EDT Performed at: [address] [place] [id number] Etl Bi Developer: German Webb MD, Phone: [phone] Patient Fasting: Y Antolin Boo MD LAB BLOOD ORDERABLES Fin al Result [facility] (AMBULATORY) [address] [place] [phone], [facility] [address] [place] [address], * (ABNORMAL) Lipid Panel (01/19/2025 10:04 AM [...] 10:0 4 AM EDT 01/19/2025 Narrative [facility] (AMBULATORY) - 01/20/2025 3:07 AM EDT Performed at: [address] [id number] Etl Bi Developer: German Webb MD, Phone: [phone] Patient Fasting: Y Antolin Boo MD LAB BLOOD ORDERABLES Fin al Result [facility] (AMBULATORY) [address] [place] [address], [facility] [address] [place] [address], [place] [phone] * (ABNORMAL) Comprehensive Metabolic Panel (01/19/2025 10:04 AM EDT) [facility] Glucose 132(H) 65 - 99 mg/dL [facility] [...] - 01/20/2025 3:07 AM EDT Performed at: [address] [place] [id number] Etl Bi Developer: German Webb MD, Phone: [phone] Patient Fasting: Y Antolin Boo MD LAB BLOOD ORDERABLES Fin al Result [facility] (AMBULATORY) [address] [place] [address], [facility] [address] [place] [address], * SCANNED - COLONOSCOPY (03/03/2020) [facility] CHART REVIEW TABS Final Re sult from Last 3 Months or Most Recently Relevant to Health Maintenance Insurance [facility] PPO Care Teams Chip Washer Relationship Specialty Start Date End Date Antolin Boo MD [address] [place] [address] PCP - General Family Medicine 07/10/22
== END 2025-04-03 23:59 | disposition home or self-care (01) ==
PROVIDERS: PCP Family Medicine; Visit Provider Internal Medicine Pulmonary Disease
DX: J18.9 Pneumonia, unspecified organism (principal)
CPT/HCPCS: 87070; 87205

== ENCOUNTER 2025-08-12 09:53 | Inpatient (IN) | payer BC, SELFPAY ==
[2025-08-12] VITALS (16 sets, daily range): BP systolic 129–178; BP diastolic 72–95; PULSE 92–105; RESP 12–23; TEMP 36.8–37.2; O2SAT 85–95; BMI 27.3
--- NOTE | 2025-08-12 09:56 | ECG_ITS ---
APPROVED REPORT Exam: Resting ECG HR:95 bpm ECG Measurements Heart Rate 95 AXES MA 144 P 79 QRSd 137 QRS 75 QT 363 T 61 QTc 415 Conclusion SINUS RHYTHM RIGHT BUNDLE BRANCH BLOCK [120+ ms QRS DURATION, UPRIGHT V1, 40+ ms S IN I/aVL/V4/V5/V6] ABNORMAL ECG UNCONFIRMED REPORT Normal sinus rhythm. Right bundle branch block. No STEMI Electronically signed by : ESTEE GOODE, 08/12/2025 16:00:25
--- NOTE | 2025-08-12 10:02 | XR_ITS ---
FINAL REPORT CLINICAL HISTORY: SOB, cough COMPARISON: none FINDINGS: A single frontal view of the chest was obtained. There are increased markings in the left lung base of uncertain chronicity, favor pneumonia over chronic change. Trace left pleural effusion is noted. There is underlying emphysema. Mediastinum is unremarkable. Heart size is normal. IMPRESSION: Left pleural effusion with probable left basilar pneumonia. Reviewed, Interpreted and Dictated by Bal Owen MD Transcribed by Leslie Jimenez Authenticated and [facility]
--- NOTE | 2025-08-12 10:03 | HMH.EDCP ---
Discharge Plan Disposition Patient Disposition: Admitted Prescriptions Prescriptions: No Action metformin 1,000 mg tablet 1,000 mg PO DAILY esomeprazole magnesium [Nexium] 40 mg capsule,delayed release(DR/EC) 40 mg PO DAILY lisinopril 40 mg tablet 40 mg PO DAILY Bystolic 20 mg tablet 10 mg PO DAILY chlorthalidone 25 mg tablet 25 mg PO DAILY Patient Comments: TAKE 1 TABLET BY MOUTH DAILY pravastatin 20 mg tablet 20 mg PO DAILY Patient Comments: TAKE 1 TABLET BY MOUTH DAILY Jardiance 10 mg tablet 10 mg PO DAILY Patient Comments: TAKE 1 TABLET BY MOUTH DAILY Stiolto Respimat 2.5-2.5 mcg/actuation mist 2 puff inhalation DAILY 90 Days Qty: 4 3RF fluticasone propionate 110 mcg/actuation HFA aerosol inhaler 1 puff inhalation BID 90 Days Qty: 12 3RF albuterol sulfate 200 PUFFS HFA aerosol inhaler 4 puffs inhalation QIDP PRN (Reason: Shortness Of Breath) Qty: 1 0RF amlodipine 10 mg tablet 10 mg PO DAILY Patient Comments: TAKE 1 TABLET BY MOUTH DAILY Referrals Follow up/Referrals: Antolin Boo MD [Primary Care Provider, Medical] - See instructions Clinical Impressions Clinical Impression: COPD exacerbation, Pneumonia, Respiratory failure with hypoxia and hypercapnia Print Language Print Language: Mongolian Discharge ED Provider: Alen Spencer General Chief Complaint: Shortness of Breath/Dyspnea Stated Complaint: SOA Time Seen by Provider: 08/12/25 09:57 History of Present Illness HPI narrative: Jeremy Beckham is a 60y male with a history of COPD on 2 to 5 L nasal cannula at baseline who presents to the emergency department for complaints of shortness of breath. Patient was brought in by EMS. Patient states that over the last week, he has had increased shortness of breath and productive cough of green sputum. He has been feeling weak at home as well. When EMS arrived, they noted that he was hypoxic on 6 L nasal cannula to 85% was put on 10 L nonrebreather and given 125 mg of Solu-Medrol and a breathing treatment and had improved to the mid 90s. Patient denies any issues with heart failure or leg swelling. Patient significant other at bedside states that his symptoms worsened yesterday but he did not want to go to the hospital at that time. Related Data Home Medications ?Medication ?Instructions ?Recorded ?Confirmed esomeprazole magnesium 40 mg 40 mg PO DAILY 01/20/21 07/06/25 capsule,delayed release (Nexium) lisinopril 40 mg tablet 40 mg PO DAILY 01/20/21 07/06/25 metformin 1,000 mg tablet 1,000 mg PO DAILY 01/20/21 07/06/25 nebivolol 20 mg tablet (Bystolic) 10 mg PO DAILY 01/20/21 07/06/25 chlorthalidone 25 mg tablet 25 mg PO DAILY 03/06/25 07/06/25 empagliflozin 10 mg tablet 10 mg PO DAILY 03/06/25 07/06/25 (Jardiance) pravastatin 20 mg tablet 20 mg PO DAILY 03/06/25 07/06/25 amlodipine 10 mg tablet 10 mg PO DAILY 03/31/25 07/06/25 Previous Rx's ?Medication ?Instructions ?Recorded albuterol sulfate 90 mcg/actuation 4 puffs inhalation QIDP PRN 08/05/21 aerosol inhaler Shortness Of Breath #1 ea fluticasone propionate 110 1 puff inhalation BID 90 days #12 07/06/25 mcg/actuation HFA aerosol inhaler grams tiotropium 2.5 mcg-olodaterol 2.5 2 puff inhalation DAILY 90 days #4 07/06/25 mcg/actuation mist for inhalation grams (Stiolto Respimat) Allergies Allergy/AdvReac Type Severity Reaction Status Date / Time Penicillins Allergy Intermediate Swelling Verified 07/06/25 15:05 of Lip/Tongue/Throat PFSH [facility] Disclaimer: The information contained in this section may have been updated after the patient was seen, as this information can be updated by other users. Medical History (Updated 08/12/25 @ 11:11 by Alen Spencer MD) COPD mixed type COPD (chronic obstructive pulmonary disease) Diabetes Hyperlipidemia Hypertension Chronic respiratory failure with hypoxia Multiple lung nodules on CT Dyspnea on exertion Pulmonary emphysema Surgical History Hx of colonoscopy No significant past surgical history Family History Other Colon cancer Diabetes Social History Smoking Status: Former smoker tobacco type: cigarettes packs per day: 2 pack-years: 50 alcohol intake: never substance use type: denies use current occupational status: retired Travel in the last 8 weeks?: None Have you lived/traveled outside US in past 30 days?: No Contact w/someone who lives/traveled outside US past 30 days?: No Exposure to someone with infectious disease in past 14 days?: No Do you have a fever (greater than 100.4 F or 38 C)?: No Have you tested positive for COVID-19?: No Exposed to someone with COVID-19 in past 14 days?: No Do you have a sore throat?: No Do you have a cough?: No Do you have any weakness?: No Do you have any diarrhea?: No Are you experiencing any unusual bleeding?: No Do you have any muscle aches/pain?: No Do you have any abdominal pain?: No Are you experiencing loss of taste or smell?: No Other Medical History Have you received the Flu Vaccine for this season: No Have you received the Pneumonia Vaccine: Yes ROS Obtained: Yes Systems reviewed as appropriate & no additional complaints except as documented Physical Exam General General appearance: alert and in no apparent distress Head Head exam: atraumatic Eye Eye exam: Present normal appearance ENT ENT exam: Present normal external ear exam Neck Neck exam: Present full ROM Chest Chest inspection: Present symmetric chest wall rise Respiratory Respiratory exam: Present respiratory distress (mild increase work with breathing,); Absent normal lung sounds bilaterally (Diminished breath sounds bilaterally), wheezes or stridor Cardiovascular Cardiovascular exam: Present regular rate and normal rhythm Abdominal Exam Abdominal exam: Present soft; Absent tenderness or guarding exam: Present deferred Extremities Exam Extremities exam: Present normal inspection; Absent edema Back Exam Back exam: Present normal inspection Neurological Exam Neurological exam: Present alert and oriented X3 Psychiatric Psychiatric exam: Present normal affect Skin Skin exam: Present warm and dry HEART Score HEART Score HEART Score assessment performed?: Yes HEART Score: 2 Critical Care Critical Care Time Critical Care Time: Yes Attestation: On 08/12/25, the high probability of a clinically significant, sudden or life threatening deterioration of the following system(s) required my full and direct attention, intervention and personal management. The time I documented below is in addition to time spent performing reported procedures but includes the following listed in this critical care notation. Total Time Total Critical Care Time: 35 Medical Decision Making [place] Inquiry Pt receiving controlled substance: No Vital Signs Vital Signs: 08/12/25 09:53 08/12/25 10:10 08/12/25 10:17 Temperature 99.0 F Temperature Source Oral Pulse Rate Pulse Rate [Left Radial] 97 H Respiratory Rate 20 Blood Pressure Blood Pressure [Right Arm] 167/72 H Blood Pressure Mean [Right Arm] 103 02 Sat by Pulse Oximetry 85 L 85 L Oxygen Delivery Method Room Air Room Air Oxygen Flow Rate (LPM) 6 Fraction of Inspired Oxygen 40 08/12/25 10:26 08/12/25 10:30 08/12/25 10:30 Temperature Temperature Source Pulse Rate 95 H 96 H 92 H Pulse Rate [Left Radial] Respiratory Rate 12 Blood Pressure 164/80 H Blood Pressure [Right Arm] Blood Pressure Mean [Right Arm] 02 Sat by Pulse Oximetry 91 L Oxygen Delivery Method BiPAP Oxygen Flow Rate (LPM) Fraction of Inspired Oxygen 08/12/25 10:30 Temperature Temperature Source Pulse Rate 93 H Pulse Rate [Left Radial] Respiratory Rate 22 Blood Pressure 156/77 H Blood Pressure [Right Arm] Blood Pressure Mean [Right Arm] 02 Sat by Pulse Oximetry 95 Oxygen Delivery Method BiPAP Oxygen Flow Rate (LPM) Fraction of Inspired Oxygen Lab Data Labs: Lab Results 08/12/25 09:43: WBC 12.3 H, RBC 4.52 L, Hgb 12.3 L, Hct 41.5 L, MCV 91.8, MCH 27.2, MCHC 29.6 L, RDW 12.7, Plt Count 227, MPV 10.8 H, Neut % (Auto) 80.6 H, Lymph % (Auto) 12.0, [place] % (Auto) 5.8, Eos % (Auto) 1.1, Baso % (Auto) 0.3, Neut # (Auto) 9.9 H, Lymph # (Auto) 1.5, [place] # (Auto) 0.7, Eos # (Auto) 0.1, Baso # (Auto) 0.0, Sodium 142, Potassium 3.8, Chloride 91 L, Carbon Dioxide 44 H*, Anion Gap 10.8, BUN 24 H, Creatinine 0.90, Estimated Creat Clear 104, Estimated GFR 86, Est GFR ( Amer) 104, Glucose 127 H, Calcium 9.3, Total Bilirubin 0.6, AST 22, ALT 18, Alkaline Phosphatase 110, Troponin I < 0.01, NT-Pro-B Natriuret Pep 617 H, Total Protein 7.9, Albumin 4.2, Globulin 3.7 H, Albumin/Globulin Ratio 1.1 08/12/25 10:02: VBG pH 7.28 L, VBG pCO2 86.2 H, VBG pO2 28.9, VBG HCO3 39.8 H, VBG Total CO2 42.4 H, VBG O2 Saturation 51.3, VBG Base Excess 13.1 H, VBG Lactic Acid 0.9 08/12/25 09:43 08/12/25 09:43 Response Orders (Tests/Meds): ED MEDICATIONS Generic Name Dose Route Start Last Admin Trade Name Freq PRN Reason Stop Dose Admin Ceftriaxone Sodium 2 gm/ 100 mls @ 200 mls/hr 08/12/25 11:04 Sodium Chloride IV 08/12/25 11:33 ONCE ONE Azithromycin 500 mg/ Sodium 250 mls @ 250 mls/hr 08/12/25 11:05 Chloride IV 08/12/25 11:06 ONCE ONE Discontinued Medications Generic Name Dose Route Start Last Admin Trade Name Freq PRN Reason Stop Dose Admin Albuterol/Ipratropium 9 ml 08/12/25 10:05 08/12/25 10:30 Ipratropium/Albuterol 3 Ml Neb IH 08/12/25 10:06 9 ml ONCE ONE Administration Magnesium Sulfate 2 gm in 50 mls @ 50 mls/hr 08/12/25 10:02 08/12/25 10:22 Magnesium Sulfate 2gm/50ml Premix IV 08/12/25 11:01 50 mls/hr ONCE ONE Administration ORDERS Category Date Time Status CXR --portable [XR chest portable] Stat Exams 08/12/25 10:02 Completed BNP [NT Pro Brain Natriuretic Pep.] Stat Lab 08/12/25 09:43 Completed CBC w/Auto Diff [Complete Blood Count Auto Diff] Stat Lab 08/12/25 09:43 Completed CMP [Comprehensive Metabolic Panel] Stat Lab 08/12/25 09:43 Completed Rapid PCR Covid and Flu A/B Stat Lab 08/12/25 10:22 Received Troponin I Q3H Lab 08/12/25 13:15 Ordered Troponin I Q3H Lab 08/12/25 16:15 Ordered Troponin I Stat Lab 08/12/25 09:43 Completed Blood Culture Stat Micro 08/12/25 10:15 Received VBG [Venous Blood Gas] Stat RT 08/12/25 10:02 Completed MDM Narrative Medical Decision Narrative: Jeremy Beckham is a 60y male with a history of COPD on 2 to 5 L nasal cannula at baseline who presents to the emergency department for complaints of shortness of breath. Patient was brought in by EMS. Patient states that over the last week, he has had increased shortness of breath and productive cough of green sputum. He has been feeling weak at home as well. When EMS arrived, they noted that he was hypoxic on 6 L nasal cannula to 85% was put on 10 L nonrebreather and given 125 mg of Solu-Medrol and a breathing treatment and had improved to the mid 90s. Patient denies any issues with heart failure or leg swelling. Patient significant other at bedside states that his symptoms worsened yesterday but he did not want to go to the hospital at that time. On arrival, patient was hypoxic to the mid 80s without oxygen was put on 10 L nonrebreather with improvement to the low 90s. Patient is mildly tachypneic. Afebrile. He is speaking in mildly shortened sentences. He has diminished breath sounds bilaterally. Abdomen is soft, nontender nondistended. He has no significant peripheral edema. Differential diagnosis includes, but is not limited to: COPD exacerbation, pneumonia, ACS, pleural effusion, pneumothorax, among others. The most morbid conditions were considered and workup was based on these. Workup in the Emergency Department included: VBG, hematologic labs, EKG, troponin, as well as a continual DuoNeb treatment, chest x-ray, 2 g of IV magnesium sulfate. Patient had received 125 mg of Solu-Medrol prior to arrival. EKG was interpreted by me personally. It showed normal sinus rhythm. No ST elevation or depression. Right bundle branch block present. QTc normal at 415 Laboratory studies show elevated white blood cell count of 12.3, neutrophilia present. Mild anemia. VBG with respiratory acidosis with pH of 7.28, pCO2 of 86.2, bicarb elevated at 39.8 and lactate normal 0.9. Patient was put on BiPAP at this time at 16/8, FiO2 of 40, respiratory rate of 18. Electrolytes are within normal limits. Patient's carbon oxide is elevated at 44 on CMP. BUN of 24 but creatinine normal 0.9. Liver enzymes bili within normal limits. Initial troponin less than 0.01. NT proBNP somewhat elevated at 617. COVID and flu swab are pending at this time. Chest x-ray was interpreted by me personally and shows no pasty in the left base concerning for pneumonia versus effusion. Given patient's increased productive cough and hypoxia, I am concerned this could represent a pneumonia. I started patient on 2 g of IV Rocephin and 500 mg of IV azithromycin. I discussed patient needing admission for his hypoxic/hypercapnic respiratory failure, pneumonia and COPD exacerbation he is in agreement with this plan. I did then discuss patient's case with KEYSHA Brannon with the hospitalist service who agreed to admit the patient.
[2025-08-12 10:07] LABS: Hematocrit 41.5 % (42.0-52.0); Hemoglobin 12.3 g/dL (14.1-18.0); Immature Granulocytes % 0.2 %; Mean Corpuscular HGB Conc 29.6 g/dL (31.8-35.4); Mean Corpuscular Hemoglobin 27.2 pg (27.0-31.2); Mean Corpuscular Volume 91.8 fl (80-94); Nucleated Red Blood Cells % 0 %; Platelet Count 227 K/mm3 (142-424); Red Blood Count 4.52 M/mm3 (4.60-6.20); Red Cell Distribution Width-SD 42.6 fL; White Blood Count 12.3 K/mm3 (4.8-10.8)
[2025-08-12 10:10] LABS: Lactate Venous 0.9 mmol/L (0.4-2.0); VBG HCO3 39.8 mmol/L (23-30); VBG PCO2 86.2 mmol/L (35-51); VBG PH 7.28 mmol/L (7.31-7.41); VBG PO2 28.9 mmol/L (28-40)
[2025-08-12 10:16] LABS: Chloride 91 mmol/L (98-107)
[2025-08-12 10:17] LABS: Albumin Level 4.2 g/dl (3.5-5.0); Potassium 3.8 mmoL/L (3.5-5.1); Sodium 142 mmol/L (136-145)
[2025-08-12 10:19] LABS: Blood Urea Nitrogen 24 mg/dl (9-20); Creatinine Clearance Estimated 104 mL/min (50-200); Creatinine,Serum 0.90 mg/dl (0.66-1.25); Estimated Glomerular Filt Rate 86 ml/min (>60); GFR (African American) 104 ML/MIN (>60)
[2025-08-12 10:20] LABS: Alanine Aminotransferase 18 U/L (12-78); Albumin/Globulin Ratio 1.1 (1.1-1.8); Alkaline Phosphatase 110 U/L (38-126); Aspartate Amino Transferase 22 U/L (17-59); Bilirubin,Total 0.6 mg/dl (0.2-1.3); Calcium 9.3 mg/dl (8.4-10.2); Globulin 3.7 g/dL (1.3-3.2); Glucose 127 mg/dl (74-100); Total Protein,Serum 7.9 g/dl (6.3-8.2)
--- OUTSIDE RECORDS SUMMARY | 2025-08-12 10:21 | XMS_ITS | Encounter Summary ---
Author Organization [facility] Address [address] [place] [id number] Care Team Providers Care Staking Press Operator Name Role Phone Antolin Boo MD Primary Care Provider + Encounter Details Date Type Department Care Team (Late st Contact Info) Description 01/31/2025 Results Follow-Up [facility] [address] [place] [address] Antolin Boo MD [address] [place] [address] Social History Tobacco Use Types [...] Care Team (Late st Contact Info) Description 08/28/2025 11:45 AM EST Office Visit [facility] [address] [place] [phone] Antolin Boo MD [address] [place] [address] documented as of this encounter Visit Diagnoses Not on filedocumented in this encounter Care Teams Staking Press Operator Relationship Specialty Start Date End Date Antolin Boo MD [address] [place] [address] PCP - General Family Medicine 07/10/22 documented as of this encounter
--- OUTSIDE RECORDS SUMMARY | 2025-08-12 10:21 | XMS_ITS | Clinical Summary ---
Author Organization [facility] Address [address] [place] [address] Care Team Providers Care Horse Stud Manager Name Role Phone Antolin Boo MD Primary [...] mouth Daily. 90 tablet 3 5 Active Ventolin HFA 108 (90 Base) MCG/ACT inhalerIndication s:Panlobular emphysema Inhale 2 puffs Every 4 (Four) Hours As Needed for Wheezing. 18 g 5 5 Active Stiolto Respimat 2.5-2.5 MCG/ACT aerosol solution inhalerIndication s:Panlobular emphysema,Chronic respiratory failure with hypoxia Inhale 2 puffs Daily. 3 each 2 5 Active Active Problems Problem Noted Date Diagnosed Date Controlled type 2 diabetes m libby with microalbuminuria, without long-term current use of [...] Stable on supplemental oxygen at 2 L/min. Immunizations Immunization Administration Dates Next Due COVID-19 [...] Description 08/28/2025 11:45 AM EST Office Visit [facility] [address] [facility] [place] [address] Antolin Boo MD [address] [place] [address] Health Maintenance Due Date Last Done Comments DIABETIC EYE EXAM 1975 TDAP/TD VACCINES (1 - Tdap) 1984 COLOGUARD 2010 COLON CANCER SCREENING 5 YEA R SIGMOIDOSCOPY 2010 [address] COLONOGRAPHY 2010 FECAL OCCULT BLOOD TEST 2010 FIT Testing (1 year) 2010 ZOSTER VACCINE (1 of 2) 2015 HEPATITIS C SCREENING 07/10/2022 COLONOSCOPY 03/03/2025 03/03/2020, 03/03/2020 COLORECTAL CANCER SCREENING 03/03/2025 INFLUENZA VACCINE 03/20/2025 07/10/2024, , 07/10/2022, Additional history exists HEMOGLOBIN A1C 07/21/2025 01/19/2025, 06/21, 01/07/2024, Additional history exists ANNUAL PHYSICAL 01/19/2026 01/19/2025 DIABETIC FOOT EXAM 01/19/2026 01/19/2025, 0 01/19/2025, 01/19/2025, Additional history exists URINE MICROALBUMIN-CREATININ E RATIO (uACR) 01/19/2026 01/19/2025 LUNG CANCER SCREENING 04/02/2026 04/02/2025 Pneumococcal Vaccine 50+ Completed 01/07/2024 Procedures Procedure Name Priority Date/Time Associated Diagnosis Comments CT CHEST LOW DOSE WO CANCER SCREENING Routine 04/02/2025 9:12 AM EDT Personal history of nicotine dependence Encounter for screening for lung cancer POC ALBUMIN/CREATININE RATIO Routine 01/19/2025 10:08 AM EDT Type 2 diabetes mellitus with diabetic microalbuminuria, without long-term current use of insulin HEMOGLOBIN A1C Routine 01/19/2025 10:04 AM EDT Type 2 diabetes mellitus with diabetic microalbuminuria, without long-term current use of insulin SCANNED - COLONOSCOPY 03/03/2020 from Last 3 Months or Most Recently Relevant to Health Maintenance Results * CT Chest Low Dose Cancer Screening WO (04/02/2025 9:12 AM EDT) Anatomical Region Laterality Modality Chest Computed Tomogra phy Antolin Boo MD IMG CT ORDERABLES Final Result * (ABNORMAL) POC Albumin/Creatinine Ratio Urine (01/19/2025 10:08 AM EDT) POC ALBUMIN, URINE 150 mg/L mg/L POC CREATININE, URINE 200 mg/dL mg/dL POC Urine Albumin Creatinine Ratio 30-300 mg/g <30 Comment:abnormal Lot Number [id number] Expiration Date 12/17/2025 Urine 01/19/2025 10:0 8 AM EDT Antolin Boo MD POINT OF CARE TEST ORDER IRAIS Final Result * (ABNORMAL) Hemoglobin A1c (01/19/2025 10:04 AM EDT) Pathologist [facility] Hemoglobin A1C 7.00(H) 4.80 - 5.60 % [facility] Comment: Hemoglobin A1C Ranges: Increased Risk for Diabetes 5.7% to 6.4% Diabetes >= 6.5% Diabetic Goal < 7.0% Blood 01/19/2025 10:0 4 AM EDT 01/19/2025 Narrative [facility] (AMBULATORY) - 01/20/2025 3:07 AM EDT Performed at: [address] [place] [id number] Double Bass Player: German Webb MD, Phone: [phone] Patient Fasting: Y Antolin Boo MD LAB BLOOD ORDERABLES Fin al Result [facility] (AMBULATORY) [address] [place] [address], [facility] [address] [place] [address], [place] [phone] * SCANNED - COLONOSCOPY (03/03/2020) [facility] CHART REVIEW TABS Final Re sult from Last 3 Months or Most Recently Relevant to Health Maintenance Insurance [facility] PPO Care Teams Horse Stud Manager Relationship Specialty Start Date End Date Antolin Boo MD [address] [facility] [place] [address] PCP - General Family Medicine 07/10/22
--- OUTSIDE RECORDS SUMMARY | 2025-08-12 10:21 | XMS_ITS | Encounter Summary ---
Author Organization [facility] Address [address] [place] [id number] Care Team Providers Care Copper Tapper Name Role Phone Antolin Boo MD Primary Care Provider + Encounter Details Date Type Department Care Team (Late st Contact Info) Description 01/20/2025 Results Follow-Up [facility] [address] [place] [address] Antolin Boo MD [address] [place] [address] Social History Tobacco Use Types [...] Description 08/28/2025 11:45 AM EST Office Visit [facility] [address] [place] [place], [place] [address] Antolin Boo MD [address] [place], [place] [address] documented as of this encounter Results * Folate (02/03/2025 8:51 AM EDT) Blood Antolin Boo MD LAB BLOOD ORDERABLES Fin al Result Performing Organization Address [facility] de Phone Number [facility] (AMBULATORY) [address] [place] [address], [place] [phone] * TSH Rfx On Abnormal To Free T4 (02/03/2025 8:51 AM EDT) Blood Antolin Boo MD LAB BLOOD ORDERABLES Fin al Result Performing Organization Address [facility] de Phone Number [facility] ([facility]UL[facility]) [address] [place] [address], [place] [phone] * Iron Profile w/o Ferritin (02/03/2025 8:51 AM EDT) Blood Antolin Boo MD LAB BLOOD ORDERABLES Fin al Result Performing Organization Address [facility] de Phone Number [facility] (AMBULATORY) [address] [place] [address], [place] [phone] * Ferritin (02/03/2025 8:51 AM EDT) Blood Antolin Boo MD LAB BLOOD ORDERABLES Fin al Result Performing Organization Address [facility] de Phone Number [facility] (AMBULATORY) [address] [place] [address], [place] [phone] * Reticulocytes (02/03/2025 8:49 AM EDT) Blood Antolin Boo MD LAB BLOOD ORDERABLES Fin al Result Performing Organization Address [facility] de Phone Number [facility] (AMBULATORY) [address] [place] [address], [place] [phone] * CBC & Differential (02/03/2025 8:49 AM EDT) Blood Antolin Boo MD LAB BLOOD ORDERABLES Fin al Result Performing Organization Address [facility] de Phone Number [facility] (AMBULATORY) [address] [place] [address], [place] [phone] * Peripheral Blood Smear (01/29/2025) Blood Antolni Boo MD PATHOLOGY/CYTOLOGY ORDER IRAIS Final Result Performing Organization Address [facility] de Phone Number [facility] [address] [place] [address], [place] [phone] documented in this encounter Visit Diagnoses Diagnosis Anemia, unspecified type- Primary documented in this encounter Care Teams Copper Tapper Relationship Specialty Start Date End Date Antolin Boo MD [address] [place] [address] [place] [address] PCP - General Family Medicine 07/10/22 documented as of this encounter
--- OUTSIDE RECORDS SUMMARY | 2025-08-12 10:21 | XMS_ITS ---
Author Organization [facility] Address [address] [place] [address] Care Team Providers Care Gripper Attacher Name Role Phone Antolin Boo MD Primary Care Provider [phone] Transplant Episode Lung Candidate [facility] ([place], [place]) - AZIZA Referred on 04/08/2025 Marked as Deferred on 05/11/2025 Reason: Patient Choice Lung CoordinatorShaunna Tsang Phone: N/A Fax: N/A Email: N/A Care Team Name Role Phone Fax Email Shaunna Tsang Lung Coordinator N/A N/A N /A Carmella Loza Referring Physician N/A [phone] N/A Events Pre-Transplant Referred: 04/08/2025
--- OUTSIDE RECORDS SUMMARY | 2025-08-12 10:21 | XMS_ITS | Clinical Summary ---
Author Organization Healthcare Address [address] [place] [address] Care Team Providers Care Call Or Contact Centre Coach Name Role Phone Antolin Boo MD Primary Care Provider [phone] Medications amLODIPine (Norvasc) 10 MG tablet Take 1 tablet by mouth daily. Active esomeprazole (NexIUM) [address] capsule Take 1 capsule by mouth daily. Active chlorthalidone (Hygroton) 25 MG tablet Take 1 tablet by mouth daily. Active Jardiance 10 MG Take 1 tablet by mouth daily. Active Ventolin HFA 108 (90 Base) MCG/ACT inhaler Inhale 2 puffs every 4 hours as needed for wheezing. Active fluticasone (Flovent) 110 MCG/ACT inhaler Inhale 1 puff 2 times a day. 5 Active lisinopril 40 MG tablet Take 1 tablet by mouth daily. Active metFORMIN (Glucophage) 1000 MG tablet Take 1 tablet by mouth daily with breakfast. Active nebivolol (Bystolic) 10 MG tablet Take 1 tablet by mouth daily. Active pravastatin (Pravachol) 20 MG tablet Take 1 tablet by mouth daily. Active Stiolto Respimat 2.5-2.5 MCG/ACT aerosol solution inhaler Inhale 2 Inhalations daily. Active Social History Tobacco Use Types Packs/Day Years Used Date Smoking Tobacco: Former Cigarettes 2 40 Q uit: 05/07/2022 Smokeless Tobacco: Never Tobacco Cessation:Counseling Given: Not Answered PHQ-2 Answer Date Recorded Patient Health Questionnaire-2 Score 0 05/07/2025 Sex and Gender Information Value Date Recorded Sex Assigned at Not on file Legal Sex Male 6:39 PM EDT Gender Identity Not on file Sexual Orientation Not on file Last Filed Vital Signs Vital Sign Reading Time Taken Comments Blood Pressure 162/75 05/07/2025 12:53 PM EDT Pulse 93 05/07/2025 12:53 PM EDT Temperature 36.9 C (98.4 F) 05/07/2025 12:53 PM EDT Respiratory Rate 16 05/07/2025 12:5 3 PM EDT Oxygen Saturation 93% 05/07/2025 12: 53 PM EDT with 3L supplmental oxygen Inhaled Oxygen Concentration - - Weight 91 kg (200 lb 9.9 oz) 05/07/2025 12:53 PM EDT Height 180.3 cm (5' 11 ) 05/07/2025 12: 53 PM EDT Body Mass Index 27.98 05/07/2025 12:53 PM EDT Plan of Treatment Health Maintenance Due Date Last Done Comments [facility]-HIV Screening 1965 [facility]-Hepatitis C Screening 1965 [facility]-/Child/Adol SDOH Screenings 1965 Diabetes: Dental Exam 1975 [facility]- SDOH Screenings 1983 [facility]-Adult SDOH Screenings 1983 [facility]-DTaP,Tdap,and Td Vaccines (1 - Tdap) 1984 [facility]-Zoster Vaccines (1 of 2) 1984 CT Colonography 2010 Colonoscopy 2010 FIT-DNA 2010 FIT 2010 FOBT 2010 Sigmoidoscopy 2010 [facility]-Colorectal Cancer Screening 2010 Lung Cancer Screening Shared Decision Making 2015 [facility]-RSV Vaccine: 60+ Years or (1 - Risk 50-74 years 1-dose series) 2015 [id number] Vaccine (3 - Moderna risk series) 10/03/2021 09/05/2021, 08/08/2021 [facility]-Diabetes: Hemoglobin A1C 04/20/202509/2024, 07/10/2024, 01/07/2024, Additional history exists [facility]-Influenza Vaccine (#1) 04/20/202507/10, 07/09/2023, 07/10/2022, Additional history exists [facility]-Lung Cancer Screening 04/02/2026 04/02/2025 [facility]-Depression Screening 05/07/2026 05/07/2025 [facility]-Pneumococcal Vaccine: 50+ Years Completed 01/07/2024 [facility]-Obesity Intervention Completed 05/07/2025 HPV Vaccines (No Doses Required) Completed [facility]-HIB Vaccines Aged Out No longer e ligible based on patient's age to complete this topic [facility]-Hepatitis A Vaccines Aged Out No longer eligible based on patient's age to complete this topic [facility]-IPV Vaccines Aged Out No longer e ligible based on patient's age to complete this topic [facility]-Rotavirus Vaccines Aged Out No lo nger eligible based on patient's age to complete this topic Insurance ANTHEM Care Teams Call Or Contact Centre Coach Relationship Specialty Start Date End Date Antolin Boo MD [address] [facility] [place] [address] PCP - General 04/10/25
[2025-08-12] MEDS: MAGNESIUM SULFATE IN WATER 2 GM/50 ML PIGGYBACK IV (10:22)
[2025-08-12 10:29] LABS: NT Pro Brain Natriuretic Pep. 617 pg/mL (0-125)
[2025-08-12] MEDS: IPRATROPIUM/ALBUTEROL 3 ML NEB 9 ML IH (10:30)
[2025-08-12 10:31] LABS: Anion Gap 10.8 mEq/L (5-15); Carbon Dioxide 44 mmol/L (22.0-30.0)
[2025-08-12 10:34] LABS: Coronavirus 19, PCR Not Detected (NotDetected); Influenza A, PCR Not Detected (NotDetected); Influenza B, PCR Not Detected (NotDetected)
[2025-08-12 10:43] LABS: Troponin I < 0.01 ng/ml (0.00-0.034)
--- NOTE | 2025-08-12 11:14 | PC.NURSE ---
I rounded on the pt. no new complaints. no needs voiced. call gimenez in reach.
--- NOTE | 2025-08-12 11:23 | P.HP_ITS ---
<Statement entered by Juve Leos MD - 08/12/25 15:47> Rounded on patient after nurse practitioner. Personally examined and interviewed patient. Agree with exam findings and care plan as documented. History of Present Illness *Admission Date: 08/12/25 *Reason for visit:: SOA, cough *History of present illness: Mr. Jeremy Beckham is a 60-year-old male who presented to the emergency department with complaints of shortness of breath via EMS. Patient has a primary medical history of COPD with baseline oxygen use between 2-5 L O2 continuously, GERD, hypertension, type 2 diabetes, HLD. The patient is companied by his who states that over the past 2 weeks the patient has had an increase in episodes of shortness of air, consistently turning his oxygen up to 5 or 6 L. She states that he has been very anxious, speaking inappropriately, tremulous. She states she encouraged him to go to the doctor on Sunday due to his increased shortness of air and cough but he refused. He then began feeling increasingly short of breath and called EMS. When EMS arrived they noted him to be hypoxic at 85% on 6 L nasal cannula. At that time he was placed on a nonrebreather at 10 L and given Solu-Medrol 125 mg IV and a DuoNeb breathing treatment. Oxygen status im proved to mid 90s at that time. Workup was done in the emergency department which revealed a respiratory acidosis with a pH of 7.28, pCO2 of 86.2, bicarb elevated at 39.8 and lactic normal at 0.9. Patient was put on the BiPAP at this time at 16/8, FiO2 of 40, respiratory rate of 18. Patient tolerated the BiPAP for a short time approximately 1 hour and then refused and took the BiPAP off. Patient was transitioned over to a Ventimask at 40% O2 at that time. Repeat ABG at noon shows slight improvement in gas pH of 7.33, pCO2 82.0, PaO2 57.8, bicarb 41.9. Additional pertinent labs show BNP 617, COVID and flu RPP negative, normal kidney function with a creatinine of 0.9 and leukocytosis of 12.3. CMP shows elevated carbon oxide level of 44. Serial troponins negative. I personally reviewed patient's chest x-ray which showed left lower lobe opacities concerning for pneumonia versus effusion. Given patient's productive cough and hypoxia he was started on Levaquin 750 mg IV daily and azithromycin 500 mg IV daily. Upon assessment patient does appear tremulous, short of breath, and anxious. [facility] Disclaimer: The information contained in this section may have been updated after the patient was seen, as this information can be updated by other users. Medical History (Updated 08/12/25 @ 14:46 by Steph Cortez APRN) COPD mixed type COPD (chronic obstructive pulmonary disease) Diabetes Hyperlipidemia Hypertension Chronic respiratory failure with hypoxia Multiple lung nodules on CT Dyspnea on exertion Pulmonary emphysema Surgical History Hx of colonoscopy No significant past surgical history Family History Other Colon cancer Diabetes Social History (Updated 08/12/25 @ 14:37 by Argelia Guevara RN) Smoking Status: Former smoker tobacco type: cigarettes packs per day: 2 pack- years: 50 alcohol intake: never substance use type: denies use current occupational status: retired Travel in the last 8 weeks?: None Have you lived/traveled outside US in past 30 days?: No Contact w/someone who lives/traveled outside US past 30 days?: No Exposure to someone with infectious disease in past 14 days?: No Do you have a fever (greater than 100.4 F or 38 C)?: No Have you tested positive for COVID-19?: No Exposed to someone with COVID-19 in past 14 days?: No Do you have a sore throat?: No Do you have a cough?: No Do you have any weakness?: No Are you experiencing any nausea/vomitting?: No Do you have any diarrhea?: No Are you experiencing any unusual bleeding?: No Do you have any muscle aches/pain?: No Do you have any abdominal pain?: No Are you experiencing loss of taste or smell?: No Other Medical History Have you received the Flu Vaccine for this season: No Have you received the Pneumonia Vaccine: Yes Review of Systems Constitutional Constitutional: Reports fatigue, Denies fever(s) and Reports weakness Eyes Eyes: Denies blurry vision and Denies change in vision ENT Ears, Nose, Mouth, and Throat: Denies dizziness, Denies odynophagia and Reports sinus pain *Cardiovascular Cardiovascular: Denies chest pain, Reports dyspnea, Reports dyspnea on exertion, Denies leg edema and Reports rapid heart rate *Respiratory Respiratory: Reports cough, Reports dyspnea, Reports dyspnea on exertion and Denies wheezing *Gastrointestinal Gastrointestinal: Denies diarrhea, Denies nausea, Denies odynophagia and Denies vomiting *Genitourinary Genitourinary: Denies difficulty urinating and Denies dysuria *Neurologic Neurologic: Denies dizziness and Reports weakness Psychiatric Psychiatric: Reports anxiety Endocrine Endocrine: Reports fatigue Allergic/Immunologic Allergic/Immunologic: Denies wheezing Meds Home Medications and Allergies Home Medications ?Medication ?Instructions ?Recorded ?Confirmed ?Type esomeprazole magnesium 40 mg 40 mg PO DAILY 01/20/21 1 10/13/24 History capsule,delayed release (Nexium) lisinopril 40 mg tablet 40 mg PO DAILY 01/20/2107/21 History metformin 1,000 mg tablet 1,000 mg PO DAILY 01/20/21 1 10/13/24 History empagliflozin 10 mg tablet 10 mg PO DAILY 03/06/25 History (Jardiance) pravastatin 20 mg tablet 20 mg PO DAILY 03/06/2507/21 History amlodipine 10 mg tablet 10 mg PO DAILY 03/31/2507/21 History fluticasone propionate 110 1 puff inhalation BID 90 da ys #12 07/06/25 08/12/25 Rx mcg/actuation HFA aerosol inhaler grams tiotropium 2.5 mcg-olodaterol 2.5 2 puff inhalation DA RUDDY 90 days #4 07/06/25 08/12/25 Rx mcg/actuation mist for inhalation grams (Stiolto Respimat) albuterol sulfate 90 mcg/actuation 2 puff inhalation Q 4HP PRN wheezing 08/12/25 08/12/25 History aerosol inhaler (Ventolin HFA) New Prescriptions to Start Prescriptions: Allergies Allergy/AdvReac Type Severity Reaction Status Date / Time Penicillins Allergy Intermediate Swelling Verified 07/06/25 15:05 of Lip/Tongue/Throat Exam Data for Last 24 hours Vital signs and Labs for Last 24 Hours: Temp Pulse Resp BP Pulse Ox O2 Del Method O2 Flow Rate 99.0 F 92 H 22 156/77 H 95 BiPAP 6 08/12/25 09:53 08/12/25 10:30 08/12/25 10:30 08/12/25 10:30 08/12/25 10:30 08/12/25 10:30 08/12/25 10:17 FiO2 40 08/12/25 10:10 Laboratory Results - last 24 hr 08/12/25 09:43: WBC 12.3 H, RBC 4.52 L, Hgb 12.3 L, Hct 41.5 L, MCV 91.8, MCH 27.2, MCHC 29.6 L, RDW 12.7, Plt Count 227, MPV 10.8 H, Neut % (Auto) 80.6 H, Lymph % (Auto) 12.0, Will % (Auto) 5.8, Eos % (Auto) 1.1, Baso % (Auto) 0.3, Neut # (Auto) 9.9 H, Lymph # (Auto) 1.5, Will # (Auto) 0.7, Eos # (Auto) 0.1, Baso # (Auto) 0.0, Sodium 142, Potassium 3.8, Chloride 91 L, Carbon Dioxide 44 H*, Anion Gap 10.8, BUN 24 H, Creatinine 0.90, Estimated Creat Clear 104, Estimated GFR 86, Est GFR ( Amer) 104, Glucose 127 H, Calcium 9.3, Total Bilirubin 0.6, AST 22, ALT 18, Alkaline Phosphatase 110, Troponin I < 0.01, NT-Pro-B Natriuret Pep 617 H, Total Protein 7.9, Albumin 4.2, Globulin 3.7 H, Albumin/Globulin Ratio 1.1 08/12/25 10:02: VBG pH 7.28 L, VBG pCO2 86.2 H, VBG pO2 28.9, VBG HCO3 39.8 H, VBG Total CO2 42.4 H, VBG O2 Saturation 51.3, VBG Base Excess 13.1 H, VBG Lactic Acid 0.9 I & O for Last 24 hours: Intake & Output 08/09/25 08/10/25 08/11/25 08/12/25 23:59 23:59 23:59 23:59 Weight 83.915 kg Constitutional Constitutional: mild distress, average body habitus, chronically ill appearing, disheveled and agitated *Routine HEENT Exam Head: Present normocephalic Eye: Present EOMI ENT: Present mucous membranes moist *Routine Neck Exam Neck: Present supple *Routine Respiratory Exam Respiratory: Present decreased breath sounds, respiratory distress, diminished air movement and symmetric chest movement *Routine Cardiovascular Exam Cardiovascular: Present Normal S1, Normal S2 and tachycardia *Routine Abdominal Exam Abdominal: Present soft and normoactive bowel sounds; Absent tenderness or distended *Routine Rectal Exam Rectal:: deferred *Routine Genitalia Exam Genitalia:: deferred *Routine Extremities Exam Extremities: Present full ROM; Absent cyanosis, clubbing or edema *Routine Skin Exam Skin: Present intact, dry and warm; Absent rash *Routine Neurological Exam Neurological: Present alert, oriented X3 and normal speech Routine Psychiatric Exam Psychiatric: Present normal affect Assessment and Plan *Assessment and plan (1) Sepsis: Status: Acute Category: Medical Code(s): A41.9 - Sepsis, unspecified organism (2) Pneumonia: Status: Acute Category: Medical Code(s): J18.9 - Pneumonia, unspecified organism (3) Respiratory failure with hypoxia and hypercapnia: Status: Acute Category: Medical Code(s): J96.91 - Respiratory failure, unspecified with hypoxia; J96.92 - Respiratory failure, unspecified with hypercapnia (4) COPD exacerbation: Status: Acute Category: Medical Code(s): J44.1 - Chronic obstructive pulmonary disease with (acute) exacerbation (5) Hypertension: Status: Acute Category: Medical Code(s): I10 - Essential (primary) hypertension (6) Hyperlipidemia: Status: Acute Category: Medical Code(s): E78.5 - Hyperlipidemia, unspecified (7) Diabetes: Status: Acute Category: Medical Code(s): E11.9 - Type 2 diabetes mellitus without complications (8) GERD (gastroesophageal reflux disease): Status: Acute Category: Medical Code(s): K21.9 - Gastro-esophageal reflux disease without esophagitis Plan Mr. Beckham is a 60-year-old male who was admitted to the medical surgical floor for COPD exacerbation, left lower lobe pneumonia, and acute on chronic hypoxic and hypercapnic respiratory failure. He at baseline wears 2-5 L nasal cannula at continuously. He follows with pulmonology, who recently referred him to for a evaluation for lung transplant. Patient states he was evaluated but opted to not continue to pursue a transplant. Hospital medicine was consulted for admission, I agreed to admit the patient. Plan of care as follows: #Acute on chronic hypercapnic, hypoxic respiratory failure #COPD exacerbation #Sepsis with left lower lobe community-acquired pneumonia ?Patient was admitted to the stepdown unit for acute on chronic hypercapnic, hypoxic respiratory failure. Patient placed on BiPAP in the ED settings 16/8, FiO2 40. He tolerated BiPAP for approximately 1 hour and then refused, was transition to Venturi mask at 40%. Patient transitioned to stepdown unit and placed on Vapotherm, will initiate BiPAP tonight. Patient is agreeable at this time. Repeat VBG at 1800. ?Pulmonology was consulted and agreed with the above plan. Will continue to consult as needed for further recommendations ?Patient at baseline wears 2-5 L O2 continuously at home (2 L at rest, 4?5 with activity). Was recently referred for lung transplant, which he opted to not pursue. Spouse is at bedside and states shortness of air issues have been ongoing for a few months, worse over the last 2 weeks. Patient's respiratory panel was negative for flu and COVID. Patient lungs are diminished with poor air movement upon auscultation. ?Patient meets sepsis criteria with respiratory rate of 24, pulse 97, WBC >12 and left lower lobe pneumonia. He was initiated on Levaquin and azithromycin, will continue both daily. Additionally will add a 1 L NS bolus over 2 hours, gentle rehydration/conservative management. ?In addition to antibiotics patient will receive DuoNebs every 4 hours scheduled, Pulmicort twice daily, Stiolto 2 puffs daily per home regimen. ?CBC, CMP, magnesium ordered for the a.m. Blood cultures and sputum culture pending. #HTN/HLD: Continue pravastatin 20 mg daily, lisinopril 40 mg daily, Jardiance 10 mg daily, amlodipine 10 mg daily. #Type 2 diabetes: Patient takes metformin at home, will hold in the inpatient setting. ACHS fingersticks, sliding scale insulin ordered. A1c 6.2%. #GERD: Continue esomeprazole 40 mg daily. Full code Regular diet VTE?Lovenox Ambulate as tolerated
--- NOTE | 2025-08-12 11:30 | PC.NURSE ---
Pt called out and requests the BiPap be removed. I spoke to who ok'd it but requests the ABG. Respiratory notified, she is going to change him from the Bipap to NC and draw his ABG at this time. I updated the pt on the plan. no other complaints at this time. no needs voiced. call gimenez in reach.
[2025-08-12 11:44] LABS: ABG HCO3 41.9 mmhg (22.0-26.0); ABG PH 7.33 mmol/L (7.35-7.45); ABG PO2 57.8 mmhg (80-100); ABG TCO2 44.4 mmhg (23-27)
[2025-08-12 11:46] LABS: Hemoglobin A1C 6.2 % (4.0-6.0)
[2025-08-12] MEDS: LEVOFLOXACIN/D5W 750 MG/150 ML 750 MG/150 ML PIGGYBACK 100 MG IV (11:54)
--- NOTE | 2025-08-12 11:56 | HMH.PHAINT1 ---
Pharmacy Intervention Comments: MEDICATION RECONCILIATION COMPLETED ON PATIENT USING EXTERNAL FILL HISTORY FROM PHARMACY. -CHEMA HORVATH, [id number]
[2025-08-12] MEDS: AZITHROMYCIN 500 MG in 0.9 % SODIUM CHLORIDE 250 ML 250 MG IV (12:06)
[2025-08-12 12:20] LABS: Source Right Radial
[2025-08-12 12:21] LABS: ABG PCO2 82.0 mmhg (35.0-45.0)
[2025-08-12 14:10] LABS: Troponin I < 0.01 ng/ml (0.00-0.034)
[2025-08-12] MEDS: 0.9 % SODIUM CHLORIDE 1000ML 1,000 ML 500 ML IV (14:25)
[2025-08-12] MEDS: IPRATROPIUM/ALBUTEROL 3 ML NEB IH ×3 (14:43→22:01)
[2025-08-12] MEDS: BUDESONIDE 0.5MG/2ML NEB 0.5 MG IH (14:43)
[2025-08-12] MEDS: humaLOG 100 UNITS/ML 10ML VIAL (SSI) SUBCUT ×2 (16:06→21:18)
--- NOTE | 2025-08-12 16:15 | HMH.OTEV ---
OT Evaluation Rehab OT IP Evaluation Start: 08/12/25 14:38 Freq: ONCE Status: Active Protocol: Document 08/12/25 16:09 LEROYSATISH (Rec: 08/12/25 16:15 DEMOND [id number]) Rehab OT IP Assessment Subjective History Mr. Jeremy Beckham is a 60-year-old male who presented to the emergency department with complaints of shortness of breath via EMS. Patient has a primary medical history of COPD with baseline oxygen use between 2-5 L O2 continuously, GERD, hypertension, type 2 diabetes, HLD. The patient is companied by his who states that over the past 2 weeks the patient has had an increase in episodes of shortness of air, consistently turning his oxygen up to 5 or 6 L. She states that he has been very anxious, speaking inappropriately, tremulous. She states she encouraged him to go to the doctor on Sunday due to his increased shortness of air and cough but he refused. He then began feeling increasingly short of breath and called EMS. When EMS arrived they noted him to be hypoxic at 85% on 6 L nasal cannula. At that time he was placed on a nonrebreather at 10 L and given Solu-Medrol 125 mg IV and a DuoNeb breathing treatment. Oxygen status improved to mid 90s at that time. Workup was done in the emergency department which revealed a respiratory acidosis with a pH of 7.28, pCO2 of 86.2, bicarb elevated at 39.8 and lactic normal at 0.9. Patient was put on the BiPAP at this time at 16/8 , FiO2 of 40, respiratory rate of 18. Patient tolerated the BiPAP for a short time approximately 1 hour and then refused and took the BiPAP off. Patient was transitioned over to a Ventimask at 40% O2 at that time. Repeat ABG at noon shows slight improvement in gas pH of 7.33, pCO2 82.0, PaO2 57.8, bicarb 41.9. Additional pertinent labs show BNP 617, COVID and flu RPP negative, normal kidney function with a creatinine of 0.9 and leukocytosis of 12.3. CMP shows elevated carbon oxide level of 44. Serial troponins negative. I personally reviewed patient's chest x-ray which showed left lower lobe opacities concerning for pneumonia versus effusion. Given patient's productive cough and hypoxia he was started on Levaquin 750 mg IV daily and azithromycin 500 mg IV daily. Upon assessment patient does appear tremulous, short of breath, and anxious. Patient lives in 1 story home with no KARSTEN. Lives with . 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 would set-up meals. Patient verbalize to stay home with patient to provide more care if needed. Patient able to complete toileting, drsg and transfers independently. Subjective I can stand. Patient completed bed mobility and transfers with CGA for safety. No LOB noted. Patient able to stand ~30 secs with 90% of SPO2 with 02 donned Objective Patient Orientation Person Right Upper WFL Extremity Gross ROM Left Upper Extremity WFL Gross ROM Bed Mobility bed mobility - supine/sit Assist Level Contact Guard/Hand Hold Transfer Training Sit/Stand Transfer Assist Level Contact Guard/Hand Hold Rehab OT IP prob,goals,plan Problems Date of Evaluation: 08/12/25 OT IP Problems Bed Mobility,Transfers,Balance,Self care,Safety Rehab Potential Rehab Potential Good Equipment Needs Assistive Devices Rolling / Wheeled Walker Plan OT intervention Plan Bed Mobility,Transfers,Balance,Self care,Safety, Therapeutic Exercise OT Plan Frequency Daily Duration LOS Discharge Goals Bed Mobility Ability Standby Assistance Sit to Stand Chair Supervision/Stand by Transfer Ability Chair Transfer Supervision/Stand by Ability Discharge Plan OT Discharge Plan Recommend patient to return home with HH services and assistance of family. Patient to continue skilled OT IP services while here at [facility]. Eval Complexity Eval Charge Codes 87893 - Low Complexity PHYSICIAN CERTIFICATION: I certify the specified therapy services for Jeremy Beckham are required, authorized, and reviewed every 30 days.
[2025-08-12 18:52] LABS: VBG HCO3 35.1 mmol/L (23-30); VBG PCO2 40.9 mmol/L (35-51); VBG PO2 192.7 mmol/L (28-40)
[2025-08-12 18:57] LABS: Lactate Venous 2.4 mmol/L (0.4-2.0); VBG PH 7.55 mmol/L (7.31-7.41)
[2025-08-12] MEDS: PRAVASTATIN 20MG TAB 20 MG PO (21:18)
[2025-08-12] MEDS: PANTOPRAZOLE 40MG TABLET 40 MG PO (21:18)
[2025-08-12 22:27] LABS: Reflex Lactic Add Lactic Reflex
--- NOTE | 2025-08-12 22:27 | EXP.EVENT.NO ---
Rounded on patient and spoke with nurse outside room of patient approximate 25 minutes ago. Patient with acute on chronic hypercapnic respiratory failure improving on Vapotherm. Serial ABGs over past 24 hours show resolving hypercapnia. Attempted patient on BiPAP overnight, but patient unable to tolerate BiPAP. Patient currently tolerating 5 to 6 L nasal cannula. Will continue to wean oxygen as tolerated. Low threshold to return to Vapotherm if needed.
[2025-08-13] VITALS (18 sets, daily range): BP systolic 141–166; BP diastolic 71–91; PULSE 86–102; RESP 14–24; TEMP 36.8–37.1; O2SAT 90–94; BMI 30.2
[2025-08-13] MEDS: IPRATROPIUM/ALBUTEROL 3 ML NEB IH ×5 (01:01→23:16)
[2025-08-13] MEDS: BUDESONIDE 0.5MG/2ML NEB 0.5 MG IH ×2 (05:24→18:38)
[2025-08-13] MEDS: SODIUM CHLORIDE 3% 15ML NEB 3 ML IH (05:24)
[2025-08-13 06:19] LABS: Lactate Venous 0.9 mmol/L (0.4-2.0); VBG HCO3 36.9 mmol/L (23-30); VBG PCO2 55.2 mmol/L (35-51); VBG PH 7.44 mmol/L (7.31-7.41); VBG PO2 133.4 mmol/L (28-40)
[2025-08-13 06:36] LABS: POC Glucose,Bedside 212 gm/dL (70-110)
[2025-08-13 06:44] LABS: POC Glucose,Bedside 113 gm/dL (70-110)
[2025-08-13 06:49] LABS: Hematocrit 34.4 % (42.0-52.0); Immature Granulocytes % 0.3 %; Mean Corpuscular HGB Conc 29.9 g/dL (31.8-35.4); Mean Corpuscular Hemoglobin 27.0 pg (27.0-31.2); Mean Corpuscular Volume 90.3 fl (80-94); Nucleated Red Blood Cells % 0 %; Platelet Count 190 K/mm3 (142-424); Red Blood Count 3.81 M/mm3 (4.60-6.20); Red Cell Distribution Width-SD 42.3 fL; White Blood Count 8.8 K/mm3 (4.8-10.8)
[2025-08-13 06:59] LABS: Hemoglobin 10.3 g/dL (14.1-18.0)
[2025-08-13 07:00] LABS: Albumin Level 3.6 g/dl (3.5-5.0); Chloride 94 mmol/L (98-107); Potassium 3.8 mmoL/L (3.5-5.1); Sodium 141 mmol/L (136-145)
[2025-08-13 07:03] LABS: Alanine Aminotransferase 14 U/L (12-78); Albumin/Globulin Ratio 1.2 (1.1-1.8); Alkaline Phosphatase 89 U/L (38-126); Aspartate Amino Transferase 22 U/L (17-59); Bilirubin,Total 0.3 mg/dl (0.2-1.3); Blood Urea Nitrogen 23 mg/dl (9-20); Calcium 8.6 mg/dl (8.4-10.2); Creatinine Clearance Estimated 103 mL/min (50-200); Creatinine,Serum 1.00 mg/dl (0.66-1.25); Estimated Glomerular Filt Rate 76 ml/min (>60); GFR (African American) 92 ML/MIN (>60); Globulin 2.9 g/dL (1.3-3.2); Glucose 122 mg/dl (74-100); Total Protein,Serum 6.5 g/dl (6.3-8.2)
[2025-08-13 07:04] LABS: Magnesium 2.3 mg/dl (1.6-2.3)
[2025-08-13 07:13] LABS: Anion Gap 8.8 mEq/L (5-15); Carbon Dioxide 42 mmol/L (22.0-30.0)
[2025-08-13 09:22] LABS: Adenovirus,PCR Not Detected (NotDetected); Chlamydophila Pneumoniae, PCR Not Detected (NotDetected); Coronavirus 19, PCR Not Detected (NotDetected); Coronovirus HKU1,PCR Not Detected (NotDetected); Influenza A, PCR Not Detected (NotDetected); Influenza AH1, 2009 Not Detected (NotDetected); Influenza AH1, PCR Not Detected (NotDetected); Influenza AH3,PCR Not Detected (NotDetected); Influenza B, PCR Not Detected (NotDetected); Mycoplasma Pneumoniae, PCR Not Detected (NotDetected); Parainfluenza 1, PCR Not Detected (NotDetected); Parainfluenza 2, PCR Not Detected (NotDetected); Parainfluenza 3, PCR Not Detected (NotDetected); Parainfluenza 4, PCR Not Detected (NotDetected)
--- NOTE | 2025-08-13 09:34 | HMH.PHAAMS2 ---
- Antimicrobial Stewardship Review culture & sensitivity review Stewardship interventions: culture & sensitivity review (CURRENTLY RECEIVING LEVAQUIN, WBC DECREASED FROM 12.3K TO 8.8K, AFEBRILE, BLD CX PENDING.)
[2025-08-13] MEDS: LISINOPRIL 20MG TABLET 40 MG PO (09:52)
[2025-08-13] MEDS: AMLODIPINE 10MG TABLET 10 MG PO (09:52)
[2025-08-13] MEDS: EMPAGLIFLOZIN 10MG TABLET 10 MG PO (09:53)
[2025-08-13] MEDS: LEVOFLOXACIN/D5W 750 MG/150 ML 750 MG/150 ML PIGGYBACK 100 MG IV (11:16)
[2025-08-13 11:18] LABS: POC Glucose,Bedside 126 gm/dL (70-110)
[2025-08-13] MEDS: UMECLIDINIUM/VILANTEROL 62.5/25MCG INHALER 1 PUFF IH (11:20)
--- NOTE | 2025-08-13 13:03 | P.PN_ITS ---
Subjective *Date: 08/13/25 *Time: 13:03 Interval history: Today, patient feels slightly better. Improved dyspnea at rest, continues to have moderate dyspnea on exertion. On baseline 4 L at this time. Continue antibiotics, breathing treatments. Exam Data for Last 24 hours Vital signs and Labs for Last 24 Hours: Temp Pulse Resp BP Pulse Ox O2 Del Method O2 Flow Rate 98.3 F 102 H 20 159/91 H 90 L Nasal Cannula 4 08/13/25 11:55 08/13/25 11:55 08/13/25 11:55 08/13/25 11:55 08/13/25 11:55 08/13/25 11:55 08/13/25 11:55 FiO2 40 08/12/25 20:00 Laboratory Results - last 24 hr 08/12/25 13:15: Troponin I < 0.01 08/12/25 16:04: POC Glucose 212 H 08/12/25 18:35: VBG pH 7.55 H, VBG pCO2 40.9, VBG pO2 192.7 H, VBG HCO3 35.1 H, VBG Total CO2 36.3 H, VBG O2 Saturation 99.5 H, VBG Base Excess 12.7 H, VBG Lactic Acid 2.4 H 08/13/25 00:10: Chlamy pneumoniae PCR Not detected, Adenovirus (PCR) Not detected, B. pertussis DNA (PCR) Not detected, Coronavirus OC43 (PCR) Not detected, Coronavirus HKU1 (PCR) Not detected, Coronavirus 229E (PCR) Not detected, SARS-CoV-2 (PCR) Not detected, Coronavirus NL63 (PCR) Not detected, Human Metapneumovir PCR Not detected, Influenza A (H1) PCR Not detected, Influ A (H1N1/09) PCR Not detected, Influenza A (H3) PCR Not detected, Influenza Type A (PCR) Not detected, Influenza Type B (PCR) Not detected, M. pneumoniae (PCR) Not detected, Parainfluenza 1 (PCR) Not detected, Parainfluenza 2 (PCR) Not det ected, Parainfluenza 3 (PCR) Not detected, Parainfluenza 4 (PCR) Not detected, RSV (PCR) Not detected, Entero/Rhino (PCR) Not detected 08/13/25 06:03: WBC 8.8 D, RBC 3.81 L, Hgb 10.3 L D, Hct 34.4 L, MCV 90.3, MCH 27.0, MCHC 29.9 L, RDW 12.8, Plt Count 190, MPV 10.8 H, Neut % (Auto) 79.0, Lymph % (Auto) 11.0, Baldwin % (Auto) 9.6 H, Eos % (Auto) 0.0 L, Baso % (Auto) 0.1, Neut # (Auto) 7.0, Lymph # (Auto) 1.0, Baldwin # (Auto) 0.9, Eos # (Auto) 0.0, Baso # (Auto) 0.0, VBG pH 7.44 H, VBG pCO2 55.2 H, VBG pO2 133.4 H, VBG HCO3 36.9 H, VBG Total CO2 38.6 H, VBG O2 Saturation 98.8 H, VBG Base Excess 12.8 H, VBG Lactic Acid 0.9, Sodium 141, Potassium 3.8, Chloride 94 L, Carbon Dioxide 42 H*, Anion Gap 8.8, BUN 23 H, Creatinine 1.00, Estimated Creat Clear 103, Estimated GFR 76, Est GFR ( Amer) 92, Glucose 122 H, Calcium 8.6, Magnesium 2.3, Total Bilirubin 0.3, AST 22, ALT 14, Alkaline Phosphatase 89, Total Protein 6.5, Albumin 3.6 D, Globulin 2.9, Albumin/Globulin Ratio 1.2 08/13/25 06:37: POC Glucose 113 H 08/13/25 11:06: POC Glucose 126 H I & O for Last 24 hours: Intake & Output 08/10/25 08/11/25 08/12/25 08/13/25 23:59 23:59 23:59 23:59 Intake Total 2170 / 2170 574 / 574 Output Total 200 / 200 1275 / 1275 Balance 1969 / 1969 -701 / -701 Weight 83.915 kg 92.533 kg Microbiology Reports for the Last 24 Hours: Microbiology 08/12/25 10:15 Blood Blood Culture - Preliminary NO GROWTH AFTER 24 HOURS 08/12/25 10:07 Blood Blood Culture - Preliminary NO GROWTH AFTER 24 HOURS Constitutional Constitutional: no acute distress and chronically ill appearing *Routine HEENT Exam Head: Present normocephalic Eye: Present EOMI and PERRL ENT: Present mucous membranes moist *Routine Neck Exam Neck: Present supple; Absent lymphadenopathy *Routine Respiratory Exam Respiratory: Present diminished air movement; Absent CTA bilaterally *Routine Cardiovascular Exam Cardiovascular: Present RRR *Routine Abdominal Exam Abdominal: Present soft and normoactive bowel sounds; Absent tenderness *Routine Extremities Exam Extremities: Absent cyanosis, clubbing or edema *Routine Skin Exam Skin: Present warm; Absent rash *Routine Neurological Exam Neurological: Present alert and oriented X3 Assessment and Plan *Assessment and plan (1) Sepsis: Status: Acute Category: Medical Code(s): A41.9 - Sepsis, unspecified organism (2) Pneumonia: Status: Acute Category: Medical Code(s): J18.9 - Pneumonia, unspecified organism (3) Respiratory failure with hypoxia and hypercapnia: Status: Acute Category: Medical Code(s): J96.91 - Respiratory failure, unspecified with hypoxia; J96.92 - Respiratory failure, unspecified with hypercapnia (4) COPD exacerbation: Status: Acute Category: Medical Code(s): J44.1 - Chronic obstructive pulmonary disease with (acute) exacerbation (5) Hypertension: Status: Acute Category: Medical Code(s): I10 - Essential (primary) hypertension (6) Hyperlipidemia: Status: Acute Category: Medical Code(s): E78.5 - Hyperlipidemia, unspecified (7) Diabetes: Status: Acute Category: Medical Code(s): E11.9 - Type 2 diabetes mellitus without complications (8) GERD (gastroesophageal reflux disease): Status: Acute Category: Medical Code(s): K21.9 - Gastro-esophageal reflux disease without esophagitis Plan Mr. Beckham is a 60-year-old male who was admitted to the medical surgical floor for COPD exacerbation, left lower lobe pneumonia, and acute on chronic hypoxic and hypercapnic respiratory failure. He at baseline wears 2-5 L nasal cannula at continuously. He follows with pulmonology, who recently referred him to for a evaluation for lung transplant. Patient states he was evaluated but opted to not continue to pursue a transplant. Hospital medicine was consulted for admission. #Acute on chronic hypercapnic, hypoxic respiratory failure #COPD exacerbation #Severe emphysema at baseline #Sepsis with left lower lobe community-acquired pneumonia ? Patient presented with shortness of breath and hypoxia on his baseline 5 L, CTA chest on admission showed left lower lobe pneumonia with COPD exacerbation. ? Initial VBG revealed acute hypercapnia, patient transiently tolerated BiPAP for an hour. VBG this morning normalized. ? Patient was recently evaluated by for lung transplant for severe emphysema, opted not to continue the process as he states it was cumbersome. ? Today, patient feels slightly better. Improved dyspnea at rest, continues to have moderate dyspnea on exertion. On baseline 4 L at this time. ? WBC improved from 12.5-8.8, continues to be tachycardic with tachypnea. ? Continue IV levofloxacin 750 mg daily day 2. ? Continue DuoNebs every 6 hours, Pulmicort twice daily. ? Follow-up sputum culture, blood cultures, MSRA PCR. ? Follow-up morning CBC. #HTN/HLD: Continue pravastatin 20 mg daily, lisinopril 40 mg daily, Jardiance 10 mg daily, amlodipine 10 mg daily. #Type 2 diabetes: Patient takes metformin at home, will hold in the inpatient setting. ACHS fingersticks, sliding scale insulin ordered. A1c 6.2%. #GERD: Continue esomeprazole 40 mg daily. Full code Regular diet VTE?Lovenox Ambulate as tolerated
--- OUTSIDE RECORDS SUMMARY | 2025-08-13 14:05 | XMS_ITS | Encounter Summary ---
Author Organization [facility] Address [address] [place] [id number] Care Team Providers Care Home Visitor Name Role Phone Antolin Boo MD Primary Care Provider + Encounter Details Date Type Department Care Team (Late st Contact Info) Description 01/20/2025 Results Follow-Up [facility] [address] [place] [address] Antolin Boo MD [address] [place] [address] Social History Tobacco Use Types [...] Description 08/28/2025 11:45 AM EST Office Visit [facility] [address] [place], [place] [address] Antolin Boo MD [address] [place], [place] [address] documented as of this encounter Results * Folate (02/03/2025 8:51 AM EDT) Blood Antolin Boo MD LAB BLOOD ORDERABLES Fin al Result Performing Organization Address [facility] de Phone Number [facility] (AMBULATORY) [address] [place] [address], [place] [phone] * TSH Rfx On Abnormal To Free T4 (02/03/2025 8:51 AM EDT) Blood Antolin Boo MD LAB BLOOD ORDERABLES Fin al Result Performing Organization Address [facility] de Phone Number [facility] ([facility]) [address] [place] [address], [place] [phone] * Iron Profile w/o Ferritin (02/03/2025 8:51 AM EDT) Blood Antolin Boo MD LAB BLOOD ORDERABLES Fin al Result Performing Organization Address [facility] de Phone Number [facility] ([facility]BUL[facility]) [address] [place] [address], [place] [phone] * Ferritin (02/03/2025 8:51 AM EDT) Blood Antolin Boo MD LAB BLOOD ORDERABLES Fin al Result Performing Organization Address [facility] de Phone Number [facility] (AMBUL[facility]) [address] [place] [address], [place] [phone] * Reticulocytes (02/03/2025 8:49 AM EDT) Blood Antolin Boo MD LAB BLOOD ORDERABLES Fin al Result Performing Organization Address [facility] de Phone Number [facility] ([facility]UL[facility]) [address] [place] [address], [place] [phone] * CBC & Differential (02/03/2025 8:49 AM EDT) Blood Antolin Boo MD LAB BLOOD ORDERABLES Fin al Result Performing Organization Address [facility] de Phone Number [facility] (AMBULATORY) [address] [place] [address], [place] [phone] * Peripheral Blood Smear (01/29/2025) Blood Antolin Boo MD PATHOLOGY/CYTOLOGY ORDER IRAIS Final Result Performing Organization Address [facility] de Phone Number [facility] [address] [place] [address], [place] [phone] documented in this encounter Visit Diagnoses Diagnosis Anemia, unspecified type- Primary documented in this encounter Care Teams Home Visitor Relationship Specialty Start Date End Date Antolin Boo MD [address] [place] [address] [place] [address] PCP - General Family Medicine 07/10/22 documented as of this encounter
--- OUTSIDE RECORDS SUMMARY | 2025-08-13 14:05 | XMS_ITS ---
Author Organization [facility] Address [address] [place] [address] Care Team Providers Care Machine Binding Folder Name Role Phone Antolin Boo MD Primary Care Provider [phone] Transplant Episode Lung Candidate [facility] ([place], [place]) - [place]IZA Referred on 04/08/2025 Marked as Deferred on 05/11/2025 Reason: Patient Choice Lung CoordinatorShaunna Tsang Phone: N/A Fax: N/A Email: N/A Care Team Name Role Phone Fax Email Shaunna Tsang Lung Coordinator N/A N/A N /A Carmella Loza Referring Physician N/A [phone] N/A Events Pre-Transplant Referred: 04/08/2025
--- OUTSIDE RECORDS SUMMARY | 2025-08-13 14:05 | XMS_ITS | Clinical Summary ---
Author Organization [facility] Address [address] [place] [address] Care Team Providers Care Master Technician Name Role Phone Antolin Boo MD Primary [...] Description 08/28/2025 11:45 AM EST Office Visit [facility] [address] [facility] [place] [address] Antolin Boo MD [address] [...] Date/Time Associated Diagnosis Comments SCANNED - LABS 08/12/2025 SCANNED - LABS 08/12/2025 SCANNED - IMAGING 08/12/2025 CT CHEST LOW DOSE WO CANCER SCREENING [...] Recently Relevant to Health Maintenance Results * IMAGING SCANNED (08/12/2025) Anatomical Region Laterality Modality Radiographic Nikki ging Antolin Boo MD IMG DIAGNOSTIC IMAGING O RDERABLES Final Result * LABS SCANNED (08/12/2025) Only the most recent of2 resultswithin the time period is included. Antolin Boo MD LAB BLOOD ORDERABLES Fin al Result * CT Chest Low Dose Cancer Screening [...] - 01/20/2025 3:07 AM EDT Performed at: [address] [place] [id number] Residential Door Installer: German Webb MD, Phone: [phone] Patient Fasting: Y Antolin Boo MD LAB BLOOD ORDERABLES Fin al Result [facility] ([facility]BULATORY) [address] [place] [address], [facility] [address] [place] [address], [place] [phone] * SCANNED - COLONOSCOPY (03/03/2020) [facility] CHART REVIEW TABS Final Re sult from Last 3 Months or Most Recently Relevant to Health Maintenance Insurance [facility] PPO Care Teams Master Technician Relationship Specialty Start Date End Date Antolin Boo MD [address] [facility] [place] [address] PCP - General Family Medicine 07/10/22
--- OUTSIDE RECORDS SUMMARY | 2025-08-13 14:05 | XMS_ITS | Encounter Summary ---
Author Organization [facility] Address [address] [place] [id number] Care Team Providers Care Treating Engineer Helper Name Role Phone Antolin Boo MD Primary Care Provider + Encounter Details Date Type Department Care Team (Late st Contact Info) Description 01/31/2025 Results Follow-Up [facility] [address] [place] [address] Antolin Boo MD [address] [place] [address] Social History Tobacco Use Types [...] Description 08/28/2025 11:45 AM EST Office Visit [facility] [address] [place] [id number] Antolin Boo MD [address] [place] [address] documented as of this encounter Visit Diagnoses Not on filedocumented in this encounter Care Teams Treating Engineer Helper Relationship Specialty Start Date End Date Antolin Boo MD [address] [place] [address] PCP - General Family Medicine 07/10/22 documented as of this encounter
--- OUTSIDE RECORDS SUMMARY | 2025-08-13 14:05 | XMS_ITS | Clinical Summary ---
Author Organization [facility] Address [address] [place] [address] Care Team Providers Care Semiconductors Wafer Breaker Name Role Phone Antolin Boo MD Primary Care Provider [phone] Medications amLODIPine (Norvasc) 10 MG tablet Take [...] - Risk 50-74 years 1-dose series) 2015 [id number] Vaccine (3 - Moderna risk series) 10/03/2021 [...] complete this topic Insurance ANTHEM Care Teams Semiconductors Wafer Breaker Relationship Specialty Start Date End Date Antolin Boo MD [address] [facility] [place] [address] PCP - General 04/10/25
[2025-08-13] MEDS: humaLOG 100 UNITS/ML 10ML VIAL (SSI) SUBCUT ×2 (16:44→20:12)
[2025-08-13 18:47] LABS: MRSA DNA PCR Negative (Negative)
[2025-08-13 20:00] LABS: POC Glucose,Bedside 183 gm/dL (70-110)
[2025-08-13] MEDS: PRAVASTATIN 20MG TAB 20 MG PO (20:12)
[2025-08-13] MEDS: PANTOPRAZOLE 40MG TABLET 40 MG PO (20:12)
--- NOTE | 2025-08-13 20:26 | EXP.EVENT.NO ---
Wrote for as needed trazodone/melatonin for sleep per patient request
[2025-08-13] MEDS: MELATONIN 5MG TABLET 5 MG PO (20:31)
--- NOTE | 2025-08-13 20:32 | PC.NURSE ---
Reached out to the provider for a prn medication for pt, for sleep aid. Pt stated that he is tired and that he is having trouble sleeping.
[2025-08-14] VITALS (13 sets, daily range): BP systolic 123–161; BP diastolic 59–87; PULSE 70–112; RESP 16–23; TEMP 36.6–37.1; O2SAT 90–96; BMI 29.9; BMI 32.0
[2025-08-14 01:56] LABS: POC Glucose,Bedside 278 gm/dL (70-110)
[2025-08-14 05:41] LABS: POC Glucose,Bedside 108 gm/dL (70-110)
[2025-08-14] MEDS: UMECLIDINIUM/VILANTEROL 62.5/25MCG INHALER 1 PUFF IH (06:14)
[2025-08-14] MEDS: IPRATROPIUM/ALBUTEROL 3 ML NEB IH ×4 (06:14→23:17)
[2025-08-14] MEDS: BUDESONIDE 0.5MG/2ML NEB 0.5 MG IH ×2 (06:14→18:41)
[2025-08-14 06:17] LABS: Albumin Level 3.5 g/dl (3.5-5.0); Chloride 96 mmol/L (98-107)
[2025-08-14 06:18] LABS: Potassium 3.8 mmoL/L (3.5-5.1); Sodium 143 mmol/L (136-145)
[2025-08-14 06:20] LABS: Alanine Aminotransferase 17 U/L (12-78); Albumin/Globulin Ratio 1.2 (1.1-1.8); Aspartate Amino Transferase 24 U/L (17-59); Blood Urea Nitrogen 25 mg/dl (9-20); Creatinine Clearance Estimated 99 mL/min (50-200); Creatinine,Serum 1.10 mg/dl (0.66-1.25); Estimated Glomerular Filt Rate 68 ml/min (>60); GFR (African American) 83 ML/MIN (>60); Globulin 3.0 g/dL (1.3-3.2); Hematocrit 37.0 % (42.0-52.0); Hemoglobin 11.0 g/dL (14.1-18.0); Immature Granulocytes % 0.3 %; Mean Corpuscular HGB Conc 29.7 g/dL (31.8-35.4); Mean Corpuscular Hemoglobin 27.8 pg (27.0-31.2); Mean Corpuscular Volume 93.4 fl (80-94); Nucleated Red Blood Cells % 0 %; Platelet Count 176 K/mm3 (142-424); Red Blood Count 3.96 M/mm3 (4.60-6.20); Red Cell Distribution Width-SD 43.9 fL; Total Protein,Serum 6.5 g/dl (6.3-8.2); White Blood Count 8.7 K/mm3 (4.8-10.8)
[2025-08-14 06:21] LABS: Alkaline Phosphatase 76 U/L (38-126); Bilirubin,Total 0.5 mg/dl (0.2-1.3); Calcium 9.1 mg/dl (8.4-10.2); Glucose 113 mg/dl (74-100); Magnesium 2.4 mg/dl (1.6-2.3)
[2025-08-14 06:28] LABS: Anion Gap 7.8 mEq/L (5-15); Carbon Dioxide 43 mmol/L (22.0-30.0)
--- NOTE | 2025-08-14 06:48 | PC.NURSE ---
Pt didn't rest much, but did some. Pt didnt want to take the trazodone for sleep because he didnt want to be to sleepy. Pt tolerated the nasal canula well at 5 Liters. Bed is in lowest position, call light and personal belongings within reach.
--- NOTE | 2025-08-14 08:04 | PC.NURSE ---
RN CALLED TO BEDSIDE DUE TO PT'S 02 SATS DROPPING TO THE 70'S. ON MY ASSESSMENT PATIENT'S 02 SAT WAS 85% ON 5L NASAL CANNULA. PT TURNED UP TO 6L AND RESPIRATORY CALLED TO BEDSIDE. LUNG SOUNDS ARE VERY DIMINISHED, VERY POOR AIR MOVEMENT AND FINE CRACKLES IN THE BILATERAL BASES.
--- NOTE | 2025-08-14 08:35 | HMH.PHAAMS2 ---
- Antimicrobial Stewardship Review culture & sensitivity review Stewardship interventions: culture & sensitivity review, reviewed - no change Comments: PATIENT ON LEVAQUIN FOR PNEUMONIA, BLOOD CX NO GROWTH AT 24 HR, SPUTUM CX PENDING, WBC WNL AT 8.7 K/mm3 TODAY, PATIENT REMAINS AFEBRILE.
[2025-08-14] MEDS: LISINOPRIL 20MG TABLET 40 MG PO (08:44)
[2025-08-14] MEDS: AMLODIPINE 10MG TABLET 10 MG PO (08:44)
[2025-08-14] MEDS: EMPAGLIFLOZIN 10MG TABLET 10 MG PO (08:44)
[2025-08-14 09:15] LABS: Lactate Venous 1.1 mmol/L (0.4-2.0); VBG HCO3 41.8 mmol/L (23-30); VBG PCO2 84.1 mmol/L (35-51); VBG PH 7.31 mmol/L (7.31-7.41); VBG PO2 99.1 mmol/L (28-40)
--- NOTE | 2025-08-14 09:17 | CA_ITS ---
APPROVED REPORT EXAM: Comprehensive 2D, Doppler, and color-flow Echocardiogram Equipment Validation Engineer: Donna Ramirez RVT Ht: 5 ft 8 in Wt: 216lbs BSA: 2.11 BP: 159/91 mmHg Indications: SHORTNESS OF BREATH,ELEVATED BNP,EDEMA 2D Dimensions IVSd 1.34 cm M: 0.6-1.2 LVEF (Visual) 54.50 % PWd 1.42 cm M: 0.6 - 1.2 LA Volume 50.60 mL LVDd 2.63 cm M: 4.2 - 5.9 LA Volume Index 23.98 mL/m2 (M/F) 16-34 LVDs 1.92 cm M: 2.5 - 4.0 EF AP4 69.40 % Left Atrium 4.40 cm M: 3.0 - 4.0 GL Strain -19.3 % RVID Base (AP4) 2.61 cm (M/F) 2.5-4.1 LVOT 2.26 cm (M/F) 1.5-2.5 M-Mode Dimensions LVDd 2.63 cm (3.5-5.7) Ao Diam 2.34 cm (2.0-3.7) LVDs 1.92 cm (3.5-5.7) IVSd 1.34 cm (0.6-1.1) PWd 1.42 cm (0.6-1.1) FS 27.00% LV Diastology E Decel Time 222 (160-240 msec) E/A Ratio 1.1 MED E' 12.1 (>= 7 cm/sec) E'/MED E' Ratio 10.02 (<= 14) LAT E' 10.8 (>= 10 cm/sec) E/LAT E' Ratio 11.23 (<= 14) Aortic Valve LVOT Max 123.0 (70-110 cm/s) DAMON Index 1.74 cm2/m2 LVOT VTI 24.72 cm AoV Peak Mikie. 137.0 (50-130 cm/s) AO Peak GR. 6.70 mmHg AO Mean GR. 4.00 (<5 mmHg) AO VTI 26.9 (18-25 cm) DAMON (VTI) 3.68 (2.5-4.5 cm2) Mitral Valve MV E Max Mikie. 121.0 (40-130 cm/s) MV A Velocity 114.0 (40-130 cm/s) E/A Ratio 1.06 MV Decel. Time 222 (160-240 ms) Tricuspid Valve TR P. Velocity 280.00 cm/s RAP Estimate 8.00 mmHg RVSP 39.30 mmHg Left Ventricle The left ventricle is normal size. Left ventricular systolic function is normal. The left ventricular ejection fraction is within the normal range. There is increased left ventricular wall thickness. There is normal LV segmental wall motion. Transmitral Doppler flow pattern suggests impaired LV relaxation. LVEF is 55% Right Ventricle The right ventricle is mildly dilated. The right ventricular systolic function is normal. Atria Left atrium is mildly dilated. Right atrium is mildly dilated. There is no color Doppler evidence of interatrial shunt. Aortic Valve The aortic valve is mildly thickened. There is no hemodynamically significant aortic valvular stenosis. Mild aortic regurgitation is present. Mitral Valve The mitral valve is normal in structure. No evidence of mitral valve stenosis. Mild mitral regurgitation is present. Tricuspid Valve The tricuspid valve leaflets are thin and pliable. Trace tricuspid regurgitation. There is insufficient TR jet to estimate RVSP. Pulmonic Valve The pulmonary valve is grossly normal in structure. Trace pulmonic valve regurgitation is present. Great Vessels The aortic root is normal in size. IVC is normal in size and collapses >50% with inspiration. Pericardium There is no pericardial effusion. Other Information Study Quality: Fair Conclusion Normal biventricular systolic function. Mild RV dilation. Mild biatrial dilation. Mild AI, mild MR. Electronically signed by : Beryl Terry MD 08/16/2025 12:36:42
--- NOTE | 2025-08-14 09:35 | HMH.PTEV ---
Physical Therapy Evaluation Rehab PT IP Evaluation Start: 08/12/25 14:38 Freq: ONCE Status: Active Protocol: Document 08/14/25 09:30 GAL (Rec: 08/14/25 09:35 GAL [id number]) Subjective/History History History Per H&P: Mr. Jeremy Beckham is a 60-year-old male who presented to the emergency department with complaints of shortness of breath via EMS. Patient has a primary medical history of COPD with baseline oxygen use between 2-5 L O2 continuously, GERD, hypertension, type 2 diabetes, HLD. The patient is companied by his who states that over the past 2 weeks the patient has had an increase in episodes of shortness of air, consistently turning his oxygen up to 5 or 6 L. She states that he has been very anxious, speaking inappropriately, tremulous. She states she encouraged him to go to the doctor on Sunday due to his increased shortness of air and cough but he refused. He then began feeling increasingly short of breath and called EMS. When EMS arrived they noted him to be hypoxic at 85% on 6 L nasal cannula. At that time he was placed on a nonrebreather at 10 L and given Solu-Medrol 125 mg IV and a DuoNeb breathing treatment. Oxygen status improved to mid 90s at that time. Workup was done in the emergency department which revealed a respiratory acidosis with a pH of 7.28, pCO2 of 86.2, bicarb elevated at 39.8 and lactic normal at 0.9. Patient was put on the BiPAP at this time at 16/8 , FiO2 of 40, respiratory rate of 18. Patient tolerated the BiPAP for a short time approximately 1 hour and then refused and took the BiPAP off. Patient was transitioned over to a Ventimask at 40% O2 at that time. Repeat ABG at noon shows slight improvement in gas pH of 7.33, pCO2 82.0, PaO2 57.8, bicarb 41.9. Additional pertinent labs show BNP 617, COVID and flu RPP negative, normal kidney function with a creatinine of 0.9 and leukocytosis of 12.3. CMP shows elevated carbon oxide level of 44. Serial troponins negative. I personally reviewed patient's chest x-ray which showed left lower lobe opacities concerning for pneumonia versus effusion. Given patient's productive cough and hypoxia he was started on Levaquin 750 mg IV daily and azithromycin 500 mg IV daily. Upon assessment patient does appear tremulous, short of breath, and anxious. Subjective Subjective PLOF: IND with mobility without AD use. HOME: Lives with his in a SS home with no KARSTEN. ASSIST: works so unable to provide 24/7 care if needed. [facility] How much help from another person do you currently need... Turning from your None back to your side while in a flat bed without using bedrails? Moving from lying on None back to sitting on the side of a flat bed without using bedrails? Moving to and from a None bed to a chair ( including a wheelchair)? Standing up from a None chair using your arms? (e.g., wheelchair, bedside chair) Walking in hospital A little room? Climbing 3-5 steps A little with a railing? Mobility Score 22 Mobility Level [place] [address] Walk 25 feet or more Mobility Calculator Rehab PT IP Eval Objective Appearance Patient Behavior Appropriate,Cooperative Patient Orientation Person,Place Difficulty following none instructions Speech Pattern Clear Ambulation Patient Able to Yes Ambulate Ambulation Observation IP General Gait Wide Based Gait Pattern Observation Ambulation Distance 30 (feet) Ambulation Assistive None Device Ambulation Ability Contact Guard/Hand Hold Balance Ability to Arise Able, uses arms to help Sitting Balance Steady, safe Standing Balance Steady, wide stance Dynamic Sitting Good Balance Ability Dynamic Standing Fair Balance Ability Transfers Bed Transfer Ability Supervision/Stand by Sit to Stand Bed Supervision/Stand by Transfer Ability Rehab PT IP prob,goals,plan Problems Date of Evaluation: 08/14/25 PT IP Problems Bed Mobility,Transfers,Gait,Balance,Self care,Safety Rehab Potential Rehab Potential Good Plan PT Intervention Plan Bed Mobility,Transfers,Gait,Balance,Self care,Safety, Therapeutic Exercise PT Plan Frequency Daily Duration Goals Met Discharge Goals Bed Transfer Ability Independent Sit to Stand Chair Independent Transfer Ability Ambulation Assistive Rolling Walker Device Ambulation Distance 75 (feet) Discharge Plan PT Discharge Plan Initial physical therapy evaluation performed. Patient presents below baseline at this time in functional mobility, transfers, gait, and strength. Pt would benefit from skilled PT while at [facility] to prevent further functional decline and maximize safety with mobility. Pt most appropriate to d/c home when deemed medically necessary d/t current level of mobility, home set-up, and family support. PT recommending home health PT services to address deficits. Eval Complexity Eval Charge Codes 26542 - Moderate Complexity PHYSICIAN CERTIFICATION: I certify the specified therapy services for Jeremy Beckham are required, authorized, and reviewed every 30 days.
[2025-08-14 09:43] LABS: NT Pro Brain Natriuretic Pep. 487 pg/mL (0-125)
[2025-08-14] MEDS: FUROSEMIDE 100MG/10ML VIAL 60 MG IV (09:57)
--- NOTE | 2025-08-14 10:24 | XR_ITS ---
FINAL REPORT CLINICAL HISTORY: f/u pneumonia COMPARISON: 08/12/2025 FINDINGS: A single frontal view of the chest was obtained. Chronic markings in the bilateral lung bases are noted. However, there are new markings in the left lung base. There is a trace left pleural effusion. No pneumothorax. Mediastinum is unremarkable. Heart size is normal. IMPRESSION: New markings in the left lung base with trace left pleural effusion. Reviewed, Interpreted and Dictated by Bal Owen MD Transcribed by Leslie Jimenez Authenticated and [facility]
[2025-08-14] MEDS: LEVOFLOXACIN/D5W 750 MG/150 ML 750 MG/150 ML PIGGYBACK 100 MG IV (10:35)
[2025-08-14] MEDS: humaLOG 100 UNITS/ML 10ML VIAL (SSI) SUBCUT ×2 (10:42→21:37)
[2025-08-14 10:47] LABS: POC Glucose,Bedside 161 gm/dL (70-110)
--- NOTE | 2025-08-14 13:14 | CARE MANAGER ---
Patient unable to ambulate around the home to complete ADLS safely, without the use of a walker. A cane would not provide the support needed. Will require the use of a rollator due to severe COPD and SOA with ambulating distance.
--- NOTE | 2025-08-14 13:59 | P.PN_ITS ---
Subjective *Date: 08/14/25 *Time: 13:59 Interval history: Patient states he is doing okay this morning, but appeared weak. Repeat VBG showed worsening hypercapnia, started on BiPAP. Follow-up repeat VBG this afternoon and tomorrow morning. Continue with BiPAP nightly. Exam Data for Last 24 hours Vital signs and Labs for Last 24 Hours: Temp Pulse Resp BP Pulse Ox O2 Del Method O2 Flow Rate 98.2 F 82 20 152/62 H 94 L BiPAP 6 08/14/25 12:00 08/14/25 12:00 08/14/25 12:00 08/14/25 12:00 08/14/25 12:00 08/14/25 13:00 08/14/25 10:50 FiO2 45 08/14/25 11:15 Laboratory Results - last 24 hr 08/13/25 08:49: MRSA (PCR) Negative 08/13/25 16:01: POC Glucose 278 H 08/13/25 19:52: POC Glucose 183 H 08/14/25 05:30: WBC 8.7, RBC 3.96 L, Hgb 11.0 L, Hct 37.0 L, MCV 93.4, MCH 27.8, MCHC 29.7 L, RDW 12.9, Plt Count 176, MPV 10.6 H, Neut % (Auto) 74.7, Lymph % (Auto) 14.8, [place] % (Auto) 10.0 H, Eos % (Auto) 0.1, Baso % (Auto) 0.1, Neut # (Auto) 6.5, Lymph # (Auto) 1.3, [place] # (Auto) 0.9, Eos # (Auto) 0.0, Baso # (Auto) 0.0, Sodium 143, Potassium 3.8, Chloride 96 L, Carbon Dioxide 43 H*, Anion Gap 7.8, BUN 25 H, Creatinine 1.10, Estimated Creat Clear 99, Estimated GF R 68, Est GFR ( Amer) 83, Glucose 113 H, Calcium 9.1, Magnesium 2.4 H, Total Bilirubin 0.5, AST 24, ALT 17, Alkaline Phosphatase 76, NT-Pro-B Natriuret Pep 487 H, Total Protein 6.5, Albumin 3.5, Globulin 3.0, Albumin/Globulin Ratio 1.2 08/14/25 05:34: POC Glucose 108 08/14/25 08:08: VBG pH 7.31, VBG pCO2 84.1 H, VBG pO2 99.1 H, VBG HCO3 41.8 H, VBG Total CO2 44.4 H, VBG O2 Saturation 97.2 H, VBG Base Excess 15.6 H, VBG Lactic Acid 1.1 08/14/25 10:37: POC Glucose 161 H I & O for Last 24 hours: Intake & Output 08/11/25 08/12/25 08/13/25 08/14/25 23:59 23:59 23:59 23:59 Intake Total 2170 / 2170 1204 / 1204 360 / 360 Output Total 200 / 200 1974 Balance 1969 / 1969 -771 / -771 -1640 / -1640 Weight 83.915 kg 92.533 kg 98.1 kg Microbiology Reports for the Last 24 Hours: Microbiology 08/12/25 10:15 Blood Blood Culture - Preliminary NO GROWTH AFTER 48 HOURS 08/12/25 10:07 Blood Blood Culture - Preliminary NO GROWTH AFTER 48 HOURS 08/13/25 11:30 Sputum - Expectorated Sputum Gram Stain - Final Constitutional Constitutional: no acute distress and chronically ill appearing *Routine HEENT Exam Head: Present normocephalic Eye: Present EOMI and PERRL ENT: Present mucous membranes moist *Routine Neck Exam Neck: Present supple; Absent lymphadenopathy *Routine Respiratory Exam Respiratory: Present diminished air movement; Absent CTA bilaterally *Routine Cardiovascular Exam Cardiovascular: Present RRR *Routine Abdominal Exam Abdominal: Present soft and normoactive bowel sounds; Absent tenderness *Routine Extremities Exam Extremities: Absent cyanosis, clubbing or edema *Routine Skin Exam Skin: Present warm; Absent rash *Routine Neurological Exam Neurological: Present alert and oriented X3 Assessment and Plan *Assessment and plan (1) Sepsis: Status: Acute Category: Medical Code(s): A41.9 - Sepsis, unspecified organism (2) Pneumonia: Status: Acute Category: Medical Code(s): J18.9 - Pneumonia, unspecified organism (3) Respiratory failure with hypoxia and hypercapnia: Status: Acute Category: Medical Code(s): J96.91 - Respiratory failure, unspecified with hypoxia; J96.92 - Respiratory failure, unspecified with hypercapnia (4) COPD exacerbation: Status: Acute Category: Medical Code(s): J44.1 - Chronic obstructive pulmonary disease with (acute) exacerbation (5) Hypertension: Status: Acute Category: Medical Code(s): I10 - Essential (primary) hypertension (6) Hyperlipidemia: Status: Acute Category: Medical Code(s): E78.5 - Hyperlipidemia, unspecified (7) Diabetes: Status: Acute Category: Medical Code(s): E11.9 - Type 2 diabetes mellitus without complications (8) GERD (gastroesophageal reflux disease): Status: Acute Category: Medical Code(s): K21.9 - Gastro-esophageal reflux disease without esophagitis Plan Mr. Beckham is a 60-year-old male who was admitted to the medical surgical floor for COPD exacerbation, left lower lobe pneumonia, and acute on chronic hypoxic and hypercapnic respiratory failure. He at baseline wears 2-5 L nasal cannula at continuously. He follows with pulmonology, who recently referred him to for a evaluation for lung transplant. Patient states he was evaluated but opted to not continue to pursue a transplant. Hospital medicine was consulted for admission. #Acute on chronic hypercapnic, hypoxic respiratory failure #COPD exacerbation #Severe emphysema at baseline #Sepsis (resolved) with left lower lobe community-acquired pneumonia ? Patient presented with shortness of breath and hypoxia on his baseline 5 L, CTA chest on admission showed left lower lobe pneumonia with COPD exacerbation. ? Initial VBG revealed acute hypercapnia, patient transiently tolerated BiPAP for an hour. VBG this morning normalized. ? Patient was recently evaluated by for lung transplant for severe emphysema, opted not to continue the process as he states it was cumbersome. ? Today, repeat VBG showed worsening hypercapnia with pCO2 of 84. Patient agreeable to BiPAP, started on 16 with a rate of 20. Will increase rate to 22 as repeat VBG shows only slight improvement in hypercapnia. ? Patient will likely need BiPAP nightly on discharge for severe COPD. No suggestion of obstructive sleep apnea at this time. ? Otherwise, patient on 6 L this morning but appeared weak. Baseline around 4 L. ? WBC 8.7 today, intermittent tachypnea but tachycardia resolved. ? Continue IV levofloxacin 750 mg daily day 3. ? Continue DuoNebs every 6 hours, Pulmicort twice daily. ? Continue prednisone 40 mg day 3/5. ? Sputum culture pending, blood culture NGTD and MRSA PCR negative. ? Follow-up morning CBC, VBG. #Lower extremity edema, possible CHF ? Patient has bilateral lower extremity pitting edema 2+, BNP 487 today. ? Follow-up ECHO. ? Ordered IV Lasix for 60 mg daily, follow-up response. ? Follow-up morning RFT's. #HTN/HLD: Continue pravastatin 20 mg daily, lisinopril 40 mg daily, Jardiance 10 mg daily, amlodipine 10 mg daily. #Type 2 diabetes: Patient takes metformin at home, will hold in the inpatient setting. ACHS fingersticks, sliding scale insulin ordered. A1c 6.2%. #GERD: Continue esomeprazole 40 mg daily. Full code Regular diet VTE?Lovenox Ambulate as tolerated
[2025-08-14 14:06] LABS: Lactate Venous 1.5 mmol/L (0.4-2.0); VBG HCO3 35.5 mmol/L (23-30); VBG PCO2 72.2 mmol/L (35-51); VBG PH 7.31 mmol/L (7.31-7.41); VBG PO2 39.2 mmol/L (28-40)
--- NOTE | 2025-08-14 15:11 | PC.NURSE ---
I ASKED MD IF HE WANTED TO MAKE PT STEP DOWN SINCE HE WANTED THE PATIENT TO WEAR THE BIPAP FOR THREE MORE HOURS. MD STATED THAT HE DID NOT THINK THAT THE PATIENT NEEDED TO BE STEP DOWN AT THIS TIME.
[2025-08-14 15:37] LABS: C-Reactive Protein 5.1 mg/L (0-4)
--- NOTE | 2025-08-14 15:46 | CARE MANAGER ---
Spoke with patient and spouse. Patient will need a bipap at discharge, per Dr. Linares. Patient has also requested a rollator. Patient choice signed for [facility]. He has home O2 3-4L @ baseline. No other known needs.
[2025-08-14 16:21] LABS: POC Glucose,Bedside 138 gm/dL (70-110)
[2025-08-14 17:30] LABS: Lactate Venous 1.0 mmol/L (0.4-2.0); VBG HCO3 38.3 mmol/L (23-30); VBG PCO2 61.4 mmol/L (35-51); VBG PH 7.41 mmol/L (7.31-7.41); VBG PO2 73.1 mmol/L (28-40)
[2025-08-14] MEDS: POLYETHYLENE GLYCOL 3350 17 GM PACKET PO (18:02)
[2025-08-14] MEDS: PRAVASTATIN 20MG TAB 20 MG PO (21:29)
[2025-08-14] MEDS: PANTOPRAZOLE 40MG TABLET 40 MG PO (21:30)
[2025-08-14] MEDS: MELATONIN 5MG TABLET 5 MG PO (21:37)
[2025-08-14 21:38] LABS: POC Glucose,Bedside 182 gm/dL (70-110)
[2025-08-15] VITALS (7 sets, daily range): BP systolic 133–152; BP diastolic 73–78; PULSE 73–100; RESP 18–23; TEMP 36.5–36.8; O2SAT 90–95; BMI 32.0
[2025-08-15 06:22] LABS: Lactate Venous 0.9 mmol/L (0.4-2.0); VBG HCO3 42.8 mmol/L (23-30); VBG PCO2 70.7 mmol/L (35-51); VBG PH 7.40 mmol/L (7.31-7.41); VBG PO2 37.1 mmol/L (28-40)
[2025-08-15 06:23] LABS: POC Glucose,Bedside 93 gm/dL (70-110)
[2025-08-15] MEDS: UMECLIDINIUM/VILANTEROL 62.5/25MCG INHALER 1 PUFF IH (06:34)
[2025-08-15] MEDS: IPRATROPIUM/ALBUTEROL 3 ML NEB IH ×2 (06:35→11:20)
[2025-08-15] MEDS: BUDESONIDE 0.5MG/2ML NEB 0.5 MG IH (06:35)
[2025-08-15 07:21] LABS: Hematocrit 35.9 % (42.0-52.0); Hemoglobin 10.4 g/dL (14.1-18.0); Immature Granulocytes % 0.4 %; Mean Corpuscular HGB Conc 29.0 g/dL (31.8-35.4); Mean Corpuscular Hemoglobin 26.6 pg (27.0-31.2); Mean Corpuscular Volume 91.8 fl (80-94); Nucleated Red Blood Cells % 0 %; Platelet Count 175 K/mm3 (142-424); Red Blood Count 3.91 M/mm3 (4.60-6.20); Red Cell Distribution Width-SD 43.2 fL; White Blood Count 8.5 K/mm3 (4.8-10.8)
[2025-08-15 07:48] LABS: Albumin Level 3.4 g/dl (3.5-5.0); Chloride 92 mmol/L (98-107); Potassium 3.6 mmoL/L (3.5-5.1); Sodium 139 mmol/L (136-145)
[2025-08-15 07:51] LABS: Alanine Aminotransferase 16 U/L (12-78); Albumin/Globulin Ratio 1.2 (1.1-1.8); Alkaline Phosphatase 75 U/L (38-126); Aspartate Amino Transferase 25 U/L (17-59); Bilirubin,Total 0.3 mg/dl (0.2-1.3); Blood Urea Nitrogen 31 mg/dl (9-20); Calcium 9.1 mg/dl (8.4-10.2); Creatinine Clearance Estimated 99 mL/min (50-200); Creatinine,Serum 1.10 mg/dl (0.66-1.25); Estimated Glomerular Filt Rate 68 ml/min (>60); GFR (African American) 83 ML/MIN (>60); Globulin 2.8 g/dL (1.3-3.2); Glucose 88 mg/dl (74-100); Magnesium 2.3 mg/dl (1.6-2.3); Total Protein,Serum 6.2 g/dl (6.3-8.2)
[2025-08-15 08:02] LABS: Anion Gap 5.6 mEq/L (5-15); Carbon Dioxide 45 mmol/L (22.0-30.0)
[2025-08-15] MEDS: FUROSEMIDE 100MG/10ML VIAL 60 MG IV (08:18)
[2025-08-15] MEDS: POLYETHYLENE GLYCOL 3350 17 GM PACKET PO (08:19)
[2025-08-15] MEDS: EMPAGLIFLOZIN 10MG TABLET 10 MG PO (08:19)
[2025-08-15] MEDS: LISINOPRIL 20MG TABLET 40 MG PO (08:19)
[2025-08-15] MEDS: AMLODIPINE 10MG TABLET 10 MG PO (08:19)
--- NOTE | 2025-08-15 10:37 | EXP.DC.SUM ---
General Admission date:: 08/12/25 HPI HPI HPI: Mr. Jeremy Beckham is a 60-year-old male who presented to the emergency department with complaints of shortness of breath via EMS. Patient has a primary medical history of COPD with baseline oxygen use between 2-5 L O2 continuously, GERD, hypertension, type 2 diabetes, HLD. The patient is companied by his who states that over the past 2 weeks the patient has had an increase in episodes of shortness of air, consistently turning his oxygen up to 5 or 6 L. She states that he has been very anxious, speaking inappropriately, tremulous. She states she encouraged him to go to the doctor on Sunday due to his increased shortness of air and cough but he refused. He then began feeling increasingly short of breath and called EMS. When EMS arrived they noted him to be hypoxic at 85% on 6 L nasal cannula. At that time he was placed on a nonrebreather at 10 L and given Solu-Medrol 125 mg IV and a DuoNeb breathing treatment. Oxygen status improved to mid 90s at that time. Workup was done in the emergency department which revealed a respiratory acidosis with a pH of 7.28, pCO2 of 86.2, bicarb elevated at 39.8 and lactic normal at 0.9. Patient was put on the BiPAP at this time at 16/8, FiO2 of 40, respiratory rate of 18. Patient tolerated the BiPAP for a short time approximately 1 hour and then refused and took the BiPAP off. Patient was transitioned over to a Ventimask at 40% O2 at that time. Repeat ABG at noon shows slight improvement in gas pH of 7.33, pCO2 82.0, PaO2 57.8, bicarb 41.9. Additional pertinent labs show BNP 617, COVID and flu RPP negative, normal kidney function with a creatinine of 0.9 and leukocytosis of 12.3. CMP shows elevated carbon oxide level of 44. Serial troponins negative. I personally reviewed patient's chest x-ray which showed left lower lobe opacities concerning for pneumonia versus effusion. Given patient's productive cough and hypoxia he was started on Levaquin 750 mg IV daily and azithromycin 500 mg IV daily. Upon assessment patient does appear tremulous, short of breath, and anxious. Hospital Course Hospital Course Hospital Course: Mr. Beckham is a 60-year-old male who was admitted to the medical surgical floor for COPD exacerbation, left lower lobe pneumonia, and acute on chronic hypoxic and hypercapnic respiratory failure. He at baseline wears 2-5 L nasal cannula at [facility]. He follows with pulmonology, who recently referred him to for a evaluation for lung transplant. Patient states he was evaluated but opted to not continue to pursue a transplant. Hospital medicine was consulted for admission. #Acute on chronic hypercapnic, hypoxic respiratory failure #COPD exacerbation #Severe emphysema at baseline #Sepsis (resolved) with left lower lobe community-acquired pneumonia ? Patient presented with shortness of breath and hypoxia on his baseline 5 L, CTA chest on admission showed left lower lobe pneumonia with COPD exacerbation. ? Initial VBG revealed acute hypercapnia, patient transiently tolerated BiPAP for an hour. ? Patient was recently evaluated by for lung transplant for severe emphysema, opted not to continue the process as he states it was cumbersome/costly, and that he would had to have all his medical care at which all of which he didn't want. - Overall, patient gradually improved with Duonebs, Pulmicort, steroids, levofloxicin and ultimately required Bipap nightly predominantly for hypercapnia and severe COPD, and not SHAE. - Feeling much better today, breathing easier and more enegy. Back to baseline 4.5L nasal cannula. - Discharged with Bipap (04/04 with a rate of 22, 45%), levofloxacin, and prednisone. Will increase rate to 22 as repeat VBG shows only slight improvement in hypercapnia. - Will follow-up with pulmonology within 1 week. #Lower extremity edema #Suspected HFpEF ? Patient presented with bilateral lower extremity pitting edema 2+, BNP 487 today. ? ECHO with normal biventricular systolic function. - Improved with IV lasix, discharged with Lasix 40mg daily. #HTN/HLD: Continue pravastatin 20 mg daily, lisinopril 40 mg daily, Jardiance 10 mg daily, amlodipine 10 mg daily. #Type 2 diabetes: Patient takes metformin at home, will hold in the inpatient setting. ACHS fingersticks, sliding scale insulin ordered. A1c 6.2%. #GERD: Continue esomeprazole 40 mg daily. Total time spent on discharge: 33 minutes on chart review, counseling, documentation, and direct care with patient. Exam Data for Last 24 hours Vital signs and Labs for Last 24 Hours: Temp Pulse Resp BP Pulse Ox O2 Del Method O2 Flow Rate 98.1 F 96 H 18 133/76 95 Room Air 3 08/15/25 08:00 08/15/25 08:00 08/15/25 08:00 08/15/25 08:00 08/15/25 08:00 08/15/25 09:00 08/15/25 08:00 FiO2 45 08/15/25 02:00 Laboratory Results - last 24 hr 08/14/25 05:30: C-Reactive Protein 5.1 H 08/14/25 10:37: POC Glucose 161 H 08/14/25 14:00: VBG pH 7.31, VBG pCO2 72.2 H, VBG pO2 39.2, VBG HCO3 35.5 H, VBG Total CO2 37.8 H, VBG O2 Saturation 73.7 H, VBG Base Excess 9.3 H, VBG Lactic Acid 1.5 08/14/25 16:00: POC Glucose 138 H 08/14/25 17:30: VBG pH 7.41, VBG pCO2 61.4 H, VBG pO2 73.1 H, VBG HCO3 38.3 H, VBG Total CO2 40.2 H, VBG O2 Saturation 95.1 H, VBG Base Excess 13.7 H, VBG Lactic Acid 1.0 08/14/25 21:28: POC Glucose 182 H 08/15/25 06:00: VBG pH 7.40, VBG pCO2 70.7 H, VBG pO2 37.1, VBG HCO3 42.8 H, VBG Total CO2 45.0 H, VBG O2 Saturation 72.8 H, VBG Base Excess 18.0 H, VBG Lactic Acid 0.9 08/15/25 06:16: POC Glucose 93 08/15/25 06:18: WBC 8.5, RBC 3.91 L, Hgb 10.4 L, Hct 35.9 L, MCV 91.8, MCH 26.6 L, MCHC 29.0 L, RDW 13.0, Plt Count 175, MPV 11.0 H, Neut % (Auto) 72.8, Lymph % (Auto) 17.2, [place] % (Auto) 9.3, Eos % (Auto) 0.2, Baso % (Auto) 0.1, Neut # (Auto) 6.2, Lymph # (Auto) 1.5, [place] # (Auto) 0.8, Eos # (Auto) 0.0, Baso # (Auto) 0.0, Sodium 139, Potassium 3.6, Chloride 92 L, Carbon Dioxide 45 H*, Anion Gap 5.6, BUN 31 H, Creatinine 1.10, Estimated Creat Clear 99, Estimated GFR 68, Est GFR ( Amer) 83, Glucose 88, Calcium 9.1, Magnesium 2.3, Total Bilirubin 0.3, AST 25, ALT 16, Alkaline Phosphatase 75, Total Protein 6.2 L, Albumin 3.4 L, Globulin 2.8, Albumin/Globulin Ratio 1.2 I & O for Last 24 hours: Intake & Output 08/12/25 08/13/25 08/14/25 08/15/25 23:59 23:59 23:59 23:59 Intake Total 2170 / 2170 1204 / 1204 1020 / 1020 120 / 120 Output Total 200 / 200 1974 / 1974 2850 / 2850 2375 / 2375 Balance 1969 / 1969 -771 / -771 -1830 / -1830 -2255 / -2255 Weight 83.915 kg 92.533 kg 98.1 kg 98.1 kg Microbiology Reports for the Last 24 Hours: Microbiology 08/13/25 11:30 Sputum - Expectorated Sputum Gram Stain - Final 08/13/25 11:30 Sputum - Expectorated Sputum Sputum Culture - Final No growth. 08/12/25 10:15 Blood Blood Culture - Preliminary NO GROWTH AFTER 48 HOURS 08/12/25 10:07 Blood Blood Culture - Preliminary NO GROWTH AFTER 48 HOURS Constitutional Constitutional: no acute distress and chronically ill appearing *Routine HEENT Exam Head: Present normocephalic Eye: Present EOMI and PERRL ENT: Present mucous membranes moist *Routine Neck Exam Neck: Present supple; Absent lymphadenopathy *Routine Respiratory Exam Respiratory: Present diminished air movement; Absent CTA bilaterally *Routine Cardiovascular Exam Cardiovascular: Present RRR *Routine Abdominal Exam Abdominal: Present soft and normoactive bowel sounds; Absent tenderness *Routine Extremities Exam Extremities: Present edema; Absent cyanosis or clubbing *Routine Skin Exam Skin: Present warm; Absent rash *Routine Neurological Exam Neurological: Present alert and oriented X3 Results Data Completed and Pending Labs on day of discharge: Labs from last 24 hours 08/15/25 08/15/25 08/15/25 06:18 06:16 06:00 WBC 8.5 RBC 3.91 L Hgb 10.4 L Hct 35.9 L MCV 91.8 MCH 26.6 L MCHC 29.0 L RDW 13.0 Plt Count 175 MPV 11.0 H Neut % (Auto) 72.8 Lymph % (Auto) 17.2 [place] % (Auto) 9.3 Eos % (Auto) 0.2 Baso % (Auto) 0.1 Neut # (Auto) 6.2 Lymph # (Auto) 1.5 [place] # (Auto) 0.8 Eos # (Auto) 0.0 Baso # (Auto) 0.0 VBG pH 7.40 VBG pCO2 70.7 H VBG pO2 37.1 VBG HCO3 42.8 H VBG Total CO2 45.0 H VBG O2 Saturation 72.8 H VBG Base Excess 18.0 H VBG Lactic Acid 0.9 Sodium 139 Potassium 3.6 Chloride 92 L Carbon Dioxide 45 H* Anion Gap 5.6 BUN 31 H Creatinine 1.10 Estimated Creat Clear 99 Estimated GFR 68 Est GFR ( Amer) 83 Glucose 88 POC Glucose 93 Calcium 9.1 Magnesium 2.3 Total Bilirubin 0.3 AST 25 ALT 16 Alkaline Phosphatase 75 C-Reactive Protein Total Protein 6.2 L Albumin 3.4 L Globulin 2.8 Albumin/Globulin Ratio 1.2 08/14/25 08/14/25 08/14/25 21:28 17:30 16:00 WBC RBC Hgb Hct MCV MCH MCHC RDW Plt Count MPV Neut % (Auto) Lymph % (Auto) [place] % (Auto) Eos % (Auto) Baso % (Auto) Neut # (Auto) Lymph # (Auto) [place] # (Auto) Eos # (Auto) Baso # (Auto) VBG pH 7.41 VBG pCO2 61.4 H VBG pO2 73.1 H VBG HCO3 38.3 H VBG Total CO2 40.2 H VBG O2 Saturation 95.1 H VBG Base Excess 13.7 H VBG Lactic Acid 1.0 Sodium Potassium Chloride Carbon Dioxide Anion Gap BUN Creatinine Estimated Creat Clear Estimated GFR Est GFR ( Amer) Glucose POC Glucose 182 H 138 H Calcium Magnesium Total Bilirubin AST ALT Alkaline Phosphatase C-Reactive Protein Total Protein Albumin Globulin Albumin/Globulin Ratio 08/14/25 08/14/25 08/14/25 14:00 10:37 05:30 WBC RBC Hgb Hct MCV MCH MCHC RDW Plt Count MPV Neut % (Auto) Lymph % (Auto) [place] % (Auto) Eos % (Auto) Baso % (Auto) Neut # (Auto) Lymph # (Auto) [place] # (Auto) Eos # (Auto) Baso # (Auto) VBG pH 7.31 VBG pCO2 72.2 H VBG pO2 39.2 VBG HCO3 35.5 H VBG Total CO2 37.8 H VBG O2 Saturation 73.7 H VBG Base Excess 9.3 H VBG Lactic Acid 1.5 Sodium Potassium Chloride Carbon Dioxide Anion Gap BUN Creatinine Estimated Creat Clear Estimated GFR Est GFR ( Amer) Glucose POC Glucose 161 H Calcium Magnesium Total Bilirubin AST ALT Alkaline Phosphatase C-Reactive Protein 5.1 H Total Protein Albumin Globulin Albumin/Globulin Ratio Preliminary micro results at discharge 08/12/25 10:15 Blood Culture - Preliminary Blood NO GROWTH AFTER 48 HOURS 08/12/25 10:07 Blood Culture - Preliminary Blood NO GROWTH AFTER 48 HOURS DS: Diagnosis Discharge Diagnosis (1) Sepsis: Status: Acute Code(s): A41.9 - Sepsis, unspecified organism (2) Pneumonia: Status: Acute Code(s): J18.9 - Pneumonia, unspecified organism (3) Respiratory failure with hypoxia and hypercapnia: Status: Acute Code(s): J96.91 - Respiratory failure, unspecified with hypoxia; J96.92 - Respiratory failure, unspecified with hypercapnia (4) COPD exacerbation: Status: Acute Code(s): J44.1 - Chronic obstructive pulmonary disease with (acute) exacerbation (5) Hypertension: Status: Acute Code(s): I10 - Essential (primary) hypertension (6) Hyperlipidemia: Status: Acute Code(s): E78.5 - Hyperlipidemia, unspecified (7) Diabetes: Status: Acute Code(s): E11.9 - Type 2 diabetes mellitus without complications (8) GERD (gastroesophageal reflux disease): Status: Acute Code(s): K21.9 - Gastro-esophageal reflux disease without esophagitis Meds Home Medications and Allergies Home Medications ?Medication ?Instructions ?Recorded ?Confirmed ?Type esomeprazole magnesium 40 mg 40 mg PO DAILY 01/20/21 08/12/25 History capsule,delayed release (Nexium) lisinopril 40 mg tablet 40 mg PO DAILY 01/20/21 08/12/25 History metformin 1,000 mg tablet 1,000 mg PO DAILY 01/20/21 08/12/25 History empagliflozin 10 mg tablet 10 mg PO DAILY 03/06/25 08/12/25 History (Jardiance) pravastatin 20 mg tablet 20 mg PO DAILY 03/06/25 08/12/25 History amlodipine 10 mg tablet 10 mg PO DAILY 03/31/25 08/12/25 History fluticasone propionate 110 1 puff inhalation BID 90 days #12 07/06/25 08/12/25 Rx mcg/actuation HFA aerosol inhaler grams tiotropium 2.5 mcg-olodaterol 2.5 2 puff inhalation DAILY 90 days #4 07/06/25 08/12/25 Rx mcg/actuation mist for inhalation grams (Stiolto Respimat) albuterol sulfate 90 mcg/actuation 2 puff inhalation Q4HP PRN wheezing 08/12/25 08/12/25 History aerosol inhaler (Ventolin HFA) furosemide 40 mg tablet (Lasix) 40 mg PO DAILY #30 tabs 08/15/25 Rx ipratropium 0.5 mg-albuterol 3 mg 3 ml inhalation Q6HP PRN shortness 08/15/25 Rx (2.5 mg base)/3 mL nebulization of breath or wheezing 30 days #180 soln mL levofloxacin 750 mg tablet 750 mg PO DAILY 3 days #3 tabs 08/15/25 Rx prednisone 20 mg tablet 40 mg (2 x 20 mg) PO DAILY 2 days 08/15/25 Rx #4 tabs New Prescriptions to Start Prescriptions: furosemide [Lasix] Cruzito Linares ipratropium-albuterol Cruzito Linares levofloxacin Cruzito Linares prednisone Cruzito Linares Allergies Allergy/AdvReac Type Severity Reaction Status Date / Time Penicillins Allergy Intermediate Swelling Verified 07/06/25 15:05 of Lip/Tongue/Throat Discharge Plan Disposition Patient Disposition: Home, Self-Care Condition: Fair Discharge Order Discharge Orders: Discharge Order (Routine); Ordered 08/15/25 Ordered By: Cruzito Linares Follow up Plan Follow up with: Carmella Loza MD [Physician, Pulmonology] - Enter time for follow up Prescriptions/Medication Reconciliation: New prednisone 20 mg Tablet 40 mg PO DAILY 2 Days Qty: 4 0RF levofloxacin 750 mg tablet 750 mg PO DAILY 3 Days Qty: 3 0RF furosemide [Lasix] 40 mg tablet 40 mg PO DAILY Qty: 30 0RF ipratropium-albuterol 0.5 mg-3 mg(2.5 mg base)/3 mL Solution For Nebulization 3 ml inhalation Q6HP PRN (Reason: shortness of breath or wheezing) 30 Days Qty: 180 0RF Continued metformin 1,000 mg tablet 1,000 mg PO DAILY esomeprazole magnesium [Nexium] 40 mg capsule,delayed release(DR/EC) 40 mg PO DAILY lisinopril 40 mg tablet 40 mg PO DAILY pravastatin 20 mg tablet 20 mg PO DAILY Patient Comments: TAKE 1 TABLET BY MOUTH DAILY Jardiance 10 mg tablet 10 mg PO DAILY Patient Comments: TAKE 1 TABLET BY MOUTH DAILY Stiolto Respimat 2.5-2.5 mcg/actuation mist 2 puff inhalation DAILY 90 Days Qty: 4 3RF fluticasone propionate 110 mcg/actuation HFA aerosol inhaler 1 puff inhalation BID 90 Days Qty: 12 3RF amlodipine 10 mg tablet 10 mg PO DAILY Patient Comments: TAKE 1 TABLET BY MOUTH DAILY albuterol sulfate [Ventolin HFA] 90 mcg/actuation HFA aerosol inhaler 2 puff INHALATION Q4HP PRN (Reason: wheezing) Problem Reconciliation Problems Reviewed?: Yes Patient Discharge Instructions Patient Instructions: DI for Chronic Obstructive Pulmonary Disease, DI for Pneumonia in Adults, DI for Sepsis in Adults, DI for Respiratory Failure, Stop Light Pneumonia, Stop Light COPD, Stop Light Infection Print Language: Japanese Providers Primary Care Provider: Antolin Boo Admit Provider: Juve Leos Attending Provider: Juve Leos
[2025-08-15] MEDS: LEVOFLOXACIN/D5W 750 MG/150 ML 750 MG/150 ML PIGGYBACK 100 MG IV (12:06)
[2025-08-15 12:20] LABS: POC Glucose,Bedside 120 gm/dL (70-110)
--- NOTE | 2025-08-17 11:03 | SW/DCPLANNER ---
Spoke with patient on the phone. Patient stated that he is good. Patient stated that he is aware of his upcoming appointment. Patient stated that he was able to get his new medicine picked up. Patient stated that [facility] was able to deliver his nebulizer machine. Patient stated that he has no concerns or questions at this time. Jaylen Nuno
== END 2025-08-15 14:20 | disposition home or self-care (01) | DRG 871 ==
LOC: ER 11:11 → 2ND 11:27
PROVIDERS: Internal Medicine; Student in an Organized Health Care Education/Training Program; Admitting Provider Internal Medicine Adolescent Medicine; Emergency Provider Student in an Organized Health Care Education/Training Program; PCP Family Medicine; Visit Provider Internal Medicine Adolescent Medicine
DX: A41.9 Sepsis, unspecified organism (principal); J18.9 Pneumonia, unspecified organism; J96.21 Acute and chronic respiratory failure with hypoxia; J96.22 Acute and chronic respiratory failure with hypercapnia; J44.1 Chronic obstructive pulmonary disease with (acute) exacerbation; J44.0 Chronic obstructive pulmonary disease with (acute) lower respiratory infection; E87.29 Other acidosis; I10 Essential (primary) hypertension; E78.5 Hyperlipidemia, unspecified; E11.9 Type 2 diabetes mellitus without complications; K21.9 Gastro-esophageal reflux disease without esophagitis; Z79.84 Long term (current) use of oral hypoglycemic drugs; Z88.0 Allergy status to penicillin; Z87.891 Personal history of nicotine dependence; D64.9 Anemia, unspecified; Z99.81 Dependence on supplemental oxygen; J43.9 Emphysema, unspecified
CPT/HCPCS: 0223U; 36415; 36600; 71045; 80053; 82803; 82962; 83036; 83605; 83735; 83880; 84484; 85025; 86140; 87040; 87070; 87205; 87636; 87641; 89220; 93005; 93306; 94640; 94660; 94761; 97162; 97165; 97530; 99285; J0456; J1650; J1938; J1956; J3475; J7030; J7050